=== PATIENT | female | born 1935 | race Caucasian/White ===

== ENCOUNTER 2019-07-02 15:58 | Observation (INO) | payer MEDICARE, SELFPAY ==
[2019-07-02] VITALS (38 sets, daily range): BP systolic 88–153; BP diastolic 47–88; PULSE 59–92; RESP 9–32; TEMP 36.4–37.1; O2SAT 90–98
--- NOTE | 2019-07-02 12:24 | CT_ITS ---
WS: [id number] CT ABDOMEN AND PELVIS NONCONTRAST HISTORY: RLQ PAIN TECHNIQUE: Imaging performed through the abdomen and pelvis. Coronal and sagittal reformats are submi tted. All CT scans at [facility] use at least one of these dose optimization techniques: automated exposure control; mA and/or kV adjustment per patient size (includes targeted exams where d ose is matched to clinical indication); or iterative reconstruction. DLP: 787.04 mGy.cm COMPARISON: 03/08/2016 Lower thorax: Lung bases are clear. Small hiatal hernia. Cardiac chambers are slightly enlarged. Liver: Normal, no mass or intrahepatic dilatation. Gallbladder: Unremarkable. Pancreas: Normal. Spleen: Normal. Adrenal glands: Normal. Right kidney: Normal size with no stones, masses or atrophy. Left kidney: Normal size kidney. Hypoechoic area in the posterior kidney measures 1.2 cm probably rep resents a cyst but cannot characterize without IV contrast. Mild atherosclerosis with no aneurysm. No free fluid, intraperitoneal air or significant lymphadenopathy. GI tract: Acute inflammatory process in the RIGHT lower quadrant. The appendix is dilated and fluid-f illed measuring 10 mm in diameter. Moderate amount of periappendiceal inflammatory changes and edema. There is a soft tissue mass at the base of the appendix extending into the cecum. Mass measures 3.0 x 1.0 cm. There are tiny adjacent lymph nodes. Terminal ileum is normal. Mild constipation throughout the remaining colon. Abdominal wall: Intact. Pelvis: Normal. Atrophic uterus. Osseous structures: Moderate spondylitic changes in the lumbar spine . Schmorl's nodes defects at multiple levels. Severe disc space narrowing and desiccation at L5-S1. Notified Gwen Camarena APN at 07/02/2019 2:[address]/CT abdomen pelvis wo con [id number] IMPRESSION: 1. Findings of acute appendicitis without rupture. Appendicitis may be seconda ry to an obstructing neoplasm at the base of the appendix extending into the ce cum. Increased soft tissue at the base of the appendix and cecum measures 3.0 x 1.0 cm. Neoplastic versus postinflammatory soft tissue thickening. 2. Periappendiceal and cecal soft tissue stranding. Small adjacent lymph nodes . 3. Small hiatal hernia.
[2019-07-02] MEDS: iohexol 300 mg/mL 50 mL Btl PO (12:38)
[2019-07-02 13:14] LABS: Basophils # 0.1 10^3/uL (0.0-0.1); Basophils % 0.4 %; Eosinophils # 0.1 10^3/uL (0.0-0.8); Eosinophils % 0.9 %; Hematocrit 39.4 % (37.0-47.0); Hemoglobin 13.1 g/dL (11.5-15.3); Lymphocytes % 23.2 %; Mean Corpuscular HGB Conc 33.2 g/dL (30.0-36.0); Mean Corpuscular Hemoglobin 30.3 pg (28.0-34.0); Mean Platelet Volume 8.5 fL (7.4-10.4); Monocytes # 1.5 10^3/uL (0.2-0.9); Monocytes % 11.7 %; Neutrophils # 8.1 10^3/uL (1.8-7.7); Neutrophils % 63.2 %; Nucleated Red Blood Cells % 0 %; Platelet Count 305 10^3/cmm (130-400); Red Blood Count 4.33 10^6/uL (4.1-5.3); Red Cell Distribution Width 12.1 % (12.1-15.1); White Blood Count 12.7 10^3/uL (4.0-10.0)
--- NOTE | 2019-07-02 16:26 | P.HP_ITS ---
Providers/Chief Complaint Admitting Physician: Scott Almeida MD Primary Care Provider: Gwen Camarena APN Chief Complaint: Right lower quad pain History of Present Illness Lexus Roqeu is a 83 year old female who says she awoke 2 days ago with some right lower quadrant abdominal pain. This apparently got quite bad yesterday but she did not seek any medical attention. She said she thought the right lower quadrant pain was actually little bit better today but her had en couraged her to be seen in their primary care physician's office. She was sent for a CAT scan and changes consistent with acute appendicitis were identified. The patient says she has not had any fevers or chills over the past 2 days. She says she really has not been nauseated but she has been somewhat anorexic. She said her bowel habits are usually all over the place and so she really has not noticed anything that is definitely out of the ordinary for her. She has had a colonoscopy in the past and thinks that she may have had some polyps removed but she said is been at least 10 years since she has had one. The patient was directly admitted after having her CAT scan done as an outpati ent at the request of her primary care physician's office. The nurses are still working on reconciling all of her historical information in the computer. The patient tells me that she takes Flexeril as needed, levothyroxine 75 mcg a day, lovastatin 20 mg a day, oxycodone 5 mg as needed back pain, Xarelto 10 mg a day (last taken this morning), sotalol 80 mg twice daily (last taken this morning). Review of Systems General: Reports: 10 or more systems reviewed and unremarkable except in HPI and below Const: Denies: fever or chills GI: Reports: abdominal pain Musc: Reports: back pain (Chronic) Medications/Allergies Allergies Allergy/AdvReac Type Severity Reaction Status Date / Time adhesive Allergy Mild rash Verified 07/02/19 16:20 PFSH Acute PFSH: Statuses (acute, chronic, etc) shown below reflect problem list status as previously entered and may not be historically accurate Medical History (Updated 07/02/19 @ 16:38 by Scott Almeida MD) Atrial fibrillation (Acute) Chronic back pain (Acute) Dyslipidemia (Acute) Hiatal hernia (Acute) Small, seen on imaging Hypothyroidism (Acute) Surgical History (Updated 07/02/19 @ 16:40 by Scott Almeida MD) History of atrial septal defect repair (Acute) 1967 History of bilateral cataract extraction (Acute) History of breast biopsy (Acute) Left, benign History of left inguinal hernia repair (Acute) Family History (Updated 07/02/19 @ 16:29 by Scott Almeida MD) Son Cancer Pseudomyxoma peritonei Social History (Updated 07/02/19 @ 16:30 by Scott Almeida MD) Smoking and tobacco status: former smoker Quit status (tobacco): has quit using tobacco Former quit date comment: Quit smoking at age 37, [id number] history Alcohol intake: never Vitals/I&O/Wt Weight last 48 hrs Weight 163 lb Physical Exam Narrative: EXAM NARRATIVE: The patient was encountered in her overflow ICU room. She does not appear to be in any distress. The pupils are equal. No carotid bruits are heard. The lungs are clear. The heart actually sounds fairly regular. The abdomen is moderately obese but is soft. Bowel sounds are hypoactive. The patient has her most exquisite tenderness over McBurney's point in the right lower quadrant but she has a little tenderness medial to this. Rovsing's sign is positive. No obvious masses are palpated. The extremities reveal no edema. Neurologically the patient appears to be grossly intact. Data : 07/02/19 13:02 CT Abd/Pel: My impression: The patient's appendix is dilated and has definite periappendiceal fat stranding changes consistent with acute appendicitis. Radiologist's impression: IMPRESSION: 1. Findings of acute appendicitis without rupture. Appendicitis may be seconda ry to an obstructing neoplasm at the base of the appendix extending into the cecum. Increased soft tissue at the base of the appendix and cecum measures 3.0 x 1.0 cm. Neoplastic versus postinflammatory soft tissue thickening. 2. Periappendiceal and cecal soft tissue stranding. Small adjacent lymph nodes. 3. Small hiatal hernia. A&P Assessment and plan (1) Acute appendicitis: I discussed the CAT scan findings and appendicitis with Lexus. I made her aware that at her age, we could certainly find some other colonic abnormality that would be responsible for making the appendix look strangely, but with common things being common, I think she probably still has typical appendicitis. We discussed both conservative and surgical methods of treatment. We discussed surgical risks of bleeding (she last took her Xarelto this morning), infection, internal organ injury, chances of a larger internal procedure, etc. The patient seems to understand and would like to proceed with an appendectomy today. 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
[2019-07-02] MEDS: lactated ringers 1,000 ML 100 ML (16:34)
--- NOTE | 2019-07-02 16:38 | ANES.PREANE2 ---
Pre-Anesthetic Assessment Pre-Anesthetic Assessment: Height/Weight: Height 1.7 m Weight 73.936 kg Proposed Procedure: Operation Date: 07/02/19 17:30 Proposed Procedures p Laparoscopic Appendectomy(Not Applicable) - Scott Almeida MD Familial anesthetic complications: None Was Beta Jose Manuel taken within 24 hours: Yes Last intake: 0900 cheese and crackers; 1300 drank contrast dye Social: Social History: No alcohol and No tobacco Exam: Pre-Anes Outpt Exam: alert, oriented x 3, clear to auscultation bilaterally and regular rate & rhythm Additional Exam Findings (including area of procedure): irregular Airway: Cervical ROM: WNL MP: 2 Additional comments: chipped, missing, false Pulmonary: Pulmonary: None reported CV/HEM: CV/HEM: Afib Comments: Took eliquis this morning : : None reported Hepatic: Hepatic: None reported GI: GI: None reported Metabolic: Metabolic: Thyroid Musc/skel: Musc/skel: None reported Neuropsych: Neuropsych: None reported Anesthetic Plan: ASA status: 2E Anesthesia: General Risk of > 500 ml blood loss (7ml/kg in children): No PFSH Anesthesia PFSH: Medical History (Updated 07/02/19 @ 16:38 by Scott Almeida MD) Atrial fibrillation (Acute) Chronic back pain (Acute) Dyslipidemia (Acute) Hiatal hernia (Acute) Small, seen on imaging Hypothyroidism (Acute) Surgical History (Updated 07/02/19 @ 16:40 by Scott Almeida MD) History of atrial septal defect repair (Acute) 1967 History of bilateral cataract extraction (Acute) History of breast biopsy (Acute) Left, benign History of left inguinal hernia repair (Acute) Family History (Updated 07/02/19 @ 16:29 by Scott Almeida MD) Son Cancer Pseudomyxoma peritonei Social History (Updated 07/02/19 @ 16:30 by Scott Almeida MD) Smoking and tobacco status: former smoker Quit status (tobacco): has quit using tobacco Former quit date comment: Quit smoking at age 37, 12-idvp-mtom history Alcohol intake: never Data Anesthesia CBC & Chem 7: 07/02/19 13:02 Other Labs: Laboratory Results - last 48 hr 07/02/19 13:02 WBC 12.7 H RBC 4.33 Hgb 13.1 Hct 39.4 MCV 91.0 MCH 30.3 MCHC 33.2 RDW 12.1 Plt Count 305 MPV 8.5 Neut % (Auto) 63.2 Lymph % (Auto) 23.2 [place] % (Auto) 11.7 Eos % (Auto) 0.9 Baso % (Auto) 0.4 Neut # (Auto) 8.1 H Lymph # (Auto) 3.0 [place] # (Auto) 1.5 H Eos # (Auto) 0.1 Baso # (Auto) 0.1 Nucleated RBC % (auto) 0 Nucleated RBCs # 0.0 Cardiac Studies: No Data to Display
[2019-07-02] MEDS: sodium chloride 0.9% 1,000 ML 30 ML IV (17:22)
[2019-07-02] MEDS: metroNIDAZOLE IV 500 MG/100 ML PREMIX 100 MG IV ×2 (17:50→20:52)
--- NOTE | 2019-07-02 18:26 | SUR.OPER ---
1811 skip updated family in waiting area
--- NOTE | 2019-07-02 18:41 | P.OP_ITS ---
Operative Report Date of procedure: July 02, 2019 Pre-op Diagnosis: Acute appendicitis. Post-op diagnosis: same Procedure Done: Laparoscopic appendectomy. Specimens removed/disposition: Appendix. Surgeon: Scott Almeida Anesthesia: General Estimated blood loss (mL): 5 Complications: None. Condition: stable Disposition: PACU Procedure: The patient was brought to the Operating Room and was placed in a supine position on the operating room table. General endotracheal anesthesia was induced. The abdomen was prepped and draped in a sterile fashion. A small vertical incision was carried out in the superior aspect of the umbilicus. Blunt dissection was carried out down to the fascia, which was grasped with a Shamir clamp. A stay suture of 0 Vicryl was placed on either side of the midline and the midline fascia was incised. The underlying peritoneum was opened bluntly and the Esmer port was placed directly into the peritoneal cavity and was held in place with the inflatable balloon. The peritoneal cavity was insufflated with carbon dioxide. The laparoscope was used to inspect the peritoneal cavity. No gross abnormalities were initially noted. Two 5-millimeter ports were placed in the left lower quadrant under direct vision. The patient was tilted in a Trendelenburg position and slightly to the left side. A laparoscopic Gillett was used to elevate the cecum and the appendix was identified. It was contained in a phlegmon just medial to the cecum. The appendix was freed using blunt dissection and was then elevated. The mesoappendix was indurated and edematous, and was divided using cautery to maintain hemostasis at the base of the appendix. Palpation on the cecum with an instrument around the base of the appendix revealed no obvious evidence of a cecal mass. The base of the appendix appeared healthy and was divided using an endoscopic stapler. The appendix was removed from the peritoneal cavity after being placed in a laparoscopic bag. The right lower quadrant and pelvis were irrigated. The staple line on the cecum was identified and appeared to be in good condition. The Esmer port was removed from the umbilical site and the stay sutures of Vicryl were tied to each other at the umbilicus. An additional fazhdy-oa-peyou suture of Vicryl was placed, closing the fascial defect so that it was airtight. A final round of irrigation was carried out in the right lower quadrant and the pelvis. No ongoing problems were seen. The remaining ports were removed from the abdominal wall as the pneumoperitoneum was evacuated. All skin incisions were closed using inverted interrupted sutures of 4-0 Vicryl. Benzoin and Steri-Strips were placed over the incisions and Band- Aids followed. The patient was taken to the Recovery Room in stable condition postoperatively.
[2019-07-02] MEDS: fentaNYL 50 mcg/mL INJ 2mL IVP ×2 (18:47→18:52)
[2019-07-02] MEDS: ondansetron 2 mg/ML SDV 2 mL 4 MG IVP ×2 (18:50→18:57)
[2019-07-02] MEDS: metoclopramide 5 mg/mL SDV 2 mL 10 MG IVP ×2 (19:08→19:21)
[2019-07-02] MEDS: ketorolac 30 mg/mL INJ 15 MG IVP (20:49)
[2019-07-02] MEDS: sodium chlor 0.45% +KCl 20 mEq 20 MEQ/1,000 ML BAG 100 MEQ IV (20:51)
[2019-07-02] MEDS: levalbuterol 0.63 mg/3 mL Neb INHALATION (21:19)
[2019-07-03] VITALS (42 sets, daily range): BP systolic 97–142; BP diastolic 50–91; PULSE 62–83; RESP 7–27; TEMP 36.6–36.8; O2SAT 85–98
--- NOTE | 2019-07-03 02:35 | PC.NURSE ---
patient was received awake alert and oriented from OR to room ICU 3 patient abdomen soft and is tender to touch. bowel sounds positive all four quads. tele shows sinus rhythm and running 60 - 70. lungs CTA bilateral. IVF infusing via 20 guage left ac. patient denies any pain at this time, family at bedside.
[2019-07-03] MEDS: levalbuterol 0.63 mg/3 mL Neb INHALATION (02:49)
[2019-07-03] MEDS: ceFAZolin 1,000 MG in sodium chloride 0.9% (plus) 50 ML 100 MG IV (02:51)
[2019-07-03] MEDS: metroNIDAZOLE IV 500 MG/100 ML PREMIX 100 MG IV (04:18)
[2019-07-03 05:18] LABS: Basophils % 0.1 %; Eosinophils % 0.1 %; Hematocrit 40.3 % (37.0-47.0); Hemoglobin 13.8 g/dL (11.5-15.3); Lymphocytes # 1.2 10^3/uL (0.8-4.8); Lymphocytes % 11.6 %; Mean Corpuscular HGB Conc 34.2 g/dL (30.0-36.0); Mean Corpuscular Hemoglobin 31.7 pg (28.0-34.0); Mean Corpuscular Volume 92.4 fL (81-99); Mean Platelet Volume 8.8 fL (7.4-10.4); Monocytes # 0.4 10^3/uL (0.2-0.9); Monocytes % 3.9 %; Neutrophils # 8.7 10^3/uL (1.8-7.7); Neutrophils % 83.4 %; Nucleated Red Blood Cells % 0 %; Platelet Count 271 10^3/cmm (130-400); Red Blood Count 4.36 10^6/uL (4.1-5.3); Red Cell Distribution Width 11.9 % (12.1-15.1); White Blood Count 10.4 10^3/uL (4.0-10.0)
[2019-07-03 05:37] LABS: Anion Gap 19.6 (5-19); Blood Urea Nitrogen 8 mg/dL (8-23); Calcium 9.5 mg/dL (8.5-10.5); Carbon Dioxide 17 mmol/L (22-29); Chloride 93 mmol/L (98-107); Glucose 153 mg/dL (65-115); Osmolality Calculated 259 mOsm/kg (285-295); Potassium 4.6 mmol/L (3.5-5.1); Sodium 125 mmol/L (136-145)
--- NOTE | 2019-07-03 07:55 | P.DS_ITS ---
Discharge Providers Date of Admission: 07/02/19 15:58 Date of Discharge: Date of Discharge: July 03, 2019 Attending Provider at Admission: Scott Almeida MD Attending Provider at Discharge: Scott Almeida MD Primary Care Provider: Gwen Camarena APN Diagnoses at Discharge Discharge Diagnosis (1) Acute appendicitis: Status: Acute Reason for Visit Reason for Visit: Reason For Visit: Right lower quad pain Hospital Course Discharge Summary: The patient was brought into the hospital after an outpatient CAT scan showed evidence of acute appendicitis. She underwent a laparoscopic appendectomy the same day. By the following morning she was feeling better, her white blood cell count had essentially normalized, she was afebrile, and she was tolerating oral intake. The patient's wounds looked good and she was anxious to go home. She was instructed with respect to wound care, activity limitations, diet, etc. Arrangements will be made for her to follow-up in my office as an outpatient. Physical Exam Narrative: EXAM NARRATIVE: Bowel sounds are present. All wounds/dressings look good. Discharge Data Data Completed and Pending: Completed Studies During Hospitalization Category Date Time Status CT abdomen pelvis wo con [id number] Rout ine Cat Scan 07/02/19 12:24 Completed Pending at discharge Category Date Time Status ES surgery / GI i mages Routine Exams 07/02/19 18:00 Taken Carcinoembryonic Antigen Routine Lab 07/02/19 16:58 Ordered Pathology: Surgic al [PTH] Routine Pth 07/02/19 18:32 Ordered Labs from last 24 hours 07/03/19 07/03/19 07/02/19 04:52 04:52 13:02 WBC 10.4 H 12.7 H RBC 4.36 4.33 Hgb 13.8 13.1 Hct 40.3 39.4 MCV 92.4 91.0 MCH 31.7 30.3 MCHC 34.2 33.2 RDW 11.9 L 12.1 Plt Count 271 305 MPV 8.8 8.5 Neut % (Auto) 83.4 63.2 Lymph % (Auto) 11.6 23.2 [place] % (Auto) 3.9 11.7 Eos % (Auto) 0.1 0.9 Baso % (Auto) 0.1 0.4 Neut # (Auto) 8.7 H 8.1 H Lymph # (Auto) 1.2 3.0 [place] # (Auto) 0.4 1.5 H Eos # (Auto) 0.0 0.1 Baso # (Auto) 0.0 0.1 Nucleated RBC % (a uto) 0 0 Nucleated RBCs # 0.0 0.0 Sodium 125 L Potassium 4.6 Chloride 93 L Carbon Dioxide 17 L Anion Gap 19.6 H BUN 8 Creatinine 0.5 Glucose 153 H Calculated Osmolal ity 259 L Calcium 9.5 Vitals: Last Vital Signs Temp 98.3 F 07/03/19 06:00 Pulse 77 07/03/19 06:00 Resp 23 H 07/03/19 06:00 BP 122/91 07/03/19 06:00 Pulse Ox 91 07/03/19 06:00 Discharge Plan Discharge Patient Disposition: Home, Self-Care Condition: Stable Prescriptions: No Action Unable to Assess RF: 0 Discharge Orders: Discharge Order (Routine); Ordered 07/03/19 Ordered By: Scott Almeida Referrals: Scott Almeida MD [Physician] - 2 weeks Discharge Diet: Advance as tolerated Discharge Activity: Limit activity as instructed Activity Restrictions/Additional Instructions: Resume same home medications. No lifting over 20 pounds, no repetitive bending or twisting, no strenuous pushing / pulling or other heavy activity. Ambulate regularly. May go up and down steps if needed. 1. Discharge to home today. 2. Appointment to see Dr. Almeida in 10-14 days as above. 3. Bandages / bandaids off later today as discussed, leave Steri-Strip(s) on, may shower. 4. Pain medication at home as previously prescribed and instructed. 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
[2019-07-03] MEDS: ketorolac 30 mg/mL INJ 15 MG IVP (08:01)
--- NOTE | 2019-07-03 09:04 | PC.NURSE ---
discharged home with who had her necklace or he had put it in her coat pocket. pt. to make appointment on saturday. noone answered at drDorita office.
--- NOTE | 2019-07-03 09:13 | PC.NURSE ---
pt. had knee hi cali steiner on aftersurgery
--- NOTE | 2019-07-03 09:30 | PC.NURSE ---
abd was soft. bandaides over steri-strips. instructed pt. on showering.
[2019-07-03 10:06] LABS: Carcinoembryonic Antigen 0.8 ng/mL (0.0-4.7)
[2019-07-04] VITALS: BP 114/60; PULSE 66; RESP 18; TEMP 36.8; O2SAT 97
[2019-07-04 00:31] VITALS: BP 114/60; PULSE 66; RESP 18; TEMP 36.8; O2SAT 98
[2019-07-04 00:34] VITALS: BP 118/76; PULSE 62; RESP 18; TEMP 36.8
[2019-07-04 01:00] VITALS: BP 132/57; PULSE 63; RESP 18; TEMP 36.8
[2019-07-04 02:54] VITALS: BP 204/74; PULSE 54; RESP 21; TEMP 37.2; O2SAT 97
== END 2019-07-03 09:00 | disposition home or self-care (01) ==
LOC: ICU 17:04
PROVIDERS: Admitting Provider Surgery; Family Provider Nurse Practitioner; PCP Nurse Practitioner; Visit Provider Surgery
PROC: 0DTJ4ZZ Resection of Appendix, Percutaneous Endoscopic Approach (ICD-10-PCS; CPT 44970; principal; 2019-07-02 17:30)
DX: K35.80 Unspecified acute appendicitis (principal); I48.91 Unspecified atrial fibrillation; Z79.01 Long term (current) use of anticoagulants; E78.5 Hyperlipidemia, unspecified; E03.9 Hypothyroidism, unspecified; Z87.891 Personal history of nicotine dependence
CPT/HCPCS: 44970; 12345; 36415; 74176; 80048; 82378; 85025; 88304; 94640; 96365; 96375; G0378; J0690; J1100; J1885; J2001; J2405; J2704; J2710; J2765; J3010; J3490; J7030; J7614; S0030

== ENCOUNTER 2020-08-31 09:12 | Outpatient (CLI) | payer MEDICARE, SELFPAY ==
[2020-08-31 10:20] VITALS: BMI 26.6
--- NOTE | 2020-08-31 10:20 | ECG_ITS ---
[facility] Test Date: 2020-08-31 Pat Name: Lexus Roque Department: Room: Gender: Female Mailing Jogger: Leticia [place] : 1935 Requested By: Kia Patel Order Number: [id number] Shai MD: Kia Patel M.D. Interpretive Statements NAME OF STUDY: LEXISCAN SESTAMIBI STRESS TEST INDICATION: Chest Pain PROCEDURE: At the baseline, the blood pressure was 169/119 mmHg with a heart rate of 67 bpm. The electrocardiogram showed normal sinus rhythm, normal axis with nonspecific ST depression in inferior and T wave inversion in anterior leads. The Lexiscan was infused over a period of 20 seconds. A total of 0.4 milligrams of Lexiscan was infused. The stress phase was continued for a total of 5 minutes. Heart rate at the end of the stress phase was 76 bpm with a blood pressure of 136/98 mmHg. The EKG at the peak infusion revealed sinus rhythm with no significant ST-T wave changes. The study was terminated due to protocol completion. Sestamibi was injected 20 seconds after the Lexiscan infusion. Blood pressure at the end of the recovery phase was 122/95 mmHg with a heart rate of 74 beats per minute. CONCLUSION: 1. No significant EKG changes with the LexiScan infusion. 2. No LexiScan induced chest pain or cardiac arrhythmia. 3. Normal blood pressure and heart rate response. 4. Functional status could not be assessed due to pharmacological protocol. 5. Sestamibi/sestamibi perfusion scan pending; see separate report. Electronically Signed On 09-05-2020 13:31:33 CDT by Kia Patel M.D. [id number]
--- NOTE | 2020-08-31 10:20 | NMCV_ITS ---
NM juwan perf SPECT r/s* [id number] Lexus Roque Age: 84 Gender: F : 1935 Exam Date: 08/31/2020 10:56 Ordering Phys: Kia Patel MD ([email or web address]) Technologist: HALEY Guzman Exam Location: [facility] Indications: CHEST PAIN STRESS TEST Please see separate stress test report in [facility] for full findings IMAGE PROTOCOL Rest/Stress 1 Lexiscan Day Radiopharmaceutical Dose (mCi) Administration Site Administered by Rest: Tc-99m 10.9 IV HALEY Peter Sestamibi Stress:Tc-99m 32.3 IV HALEY Guzman Sestamimaria g Rest: 31-Aug-2020 60 Discovery 630 Stress: 31-Aug-2020 30 Discovery 630 0.4mg Lexiscan. Images obtained in supine and prone position. SPECT RESULTS Technical Quality: Excellent Raw Data Analysis: Normal Image Corrections: No attenuation or motion correction applied Summed Stress Score: 0 Summed Rest Score: 0 Summed Difference Score: 0 PERFUSION FINDINGS SPECT images demonstrate homogeneous tracer distribution throughout the myocardium. FUNCTIONAL RESULTS (calculated via Gated SPECT) Stress Image LV EF (%): 71 Stress EDV (mL):77 TID: 0.83 Stress ESV (mL):22 FUNCTIONAL FINDINGS: The left ventricle is normal in size. Transient Ischemia Dilatation of 0.83. There is normal left ventricular systolic function. The left ventricular ejection fraction is normal with a value of 71%. There is normal left ventricular wall thickening with no regional wall motion abnormality. Normal end diastolic and end systolic volumes. IMPRESSIONS 1. Myocardial perfusion imaging is normal. 2. Overall left ventricular systolic function is normal without regional wall motion abnormalities. 3. The left ventricular ejection fraction is normal with a value of 71%. 4. Scan indicates low risk for cardiac events. Kia Patel MD (Electronically Signed) Final Date: 31 August 2020 20:34 S
[2020-08-31 11:43] VITALS: BP 151/105; PULSE 83
[2020-08-31] MEDS: regadenoson 0.4 Mg/5 ml Syringe IVP (11:43)
== END 2020-08-31 09:13 | disposition home or self-care (01) ==
LOC: CDL 09:15
PROVIDERS: PCP Nurse Practitioner; Visit Provider Internal Medicine Cardiovascular Disease
DX: R07.9 Chest pain, unspecified (principal)
CPT/HCPCS: 78452; 93017; A9500; J2785

== ENCOUNTER → 2021-08-30 13:53 | Outpatient (BNVA) | payer MEDICARE, SELFPAY | PROVIDERS: PCP Nurse Practitioner Family; Visit Provider Internal Medicine Cardiovascular Disease | DX: I48.0 Paroxysmal atrial fibrillation (principal); Z51.81 Encounter for therapeutic drug level monitoring; R07.9 Chest pain, unspecified; Z79.01 Long term (current) use of anticoagulants; J44.9 Chronic obstructive pulmonary disease, unspecified; Z87.891 Personal history of nicotine dependence | CPT/HCPCS: 99214 ==

== ENCOUNTER → 2021-09-07 08:10 | Outpatient (BNVA) | payer MEDICARE, SELFPAY | PROVIDERS: PCP Nurse Practitioner Family; Visit Provider Internal Medicine Cardiovascular Disease | DX: E78.5 Hyperlipidemia, unspecified (principal); I48.0 Paroxysmal atrial fibrillation; R07.9 Chest pain, unspecified; Z51.81 Encounter for therapeutic drug level monitoring; Z79.899 Other long term (current) drug therapy | CPT/HCPCS: 80053; 84443 ==

== ENCOUNTER → 2021-11-07 11:32 | Outpatient (BNVA) | payer MEDICARE, SELFPAY | PROVIDERS: PCP Nurse Practitioner Family; Visit Provider Nurse Practitioner Family | DX: L98.9 Disorder of the skin and subcutaneous tissue, unspecified (principal); E78.5 Hyperlipidemia, unspecified; R53.83 Other fatigue; I10 Essential (primary) hypertension; E03.9 Hypothyroidism, unspecified; Z79.01 Long term (current) use of anticoagulants | CPT/HCPCS: 80053; 80061; 84443; 85025 ==

== ENCOUNTER → 2021-12-13 00:01 | Outpatient (BNVA) | payer MEDICARE, SELFPAY | PROVIDERS: PCP Nurse Practitioner Family; Visit Provider Nurse Practitioner Family | DX: E87.1 Hypo-osmolality and hyponatremia (principal) | CPT/HCPCS: 80053 ==

== ENCOUNTER → 2022-01-02 14:20 | Outpatient (BNVA) | payer MEDICARE, SELFPAY | PROVIDERS: PCP Nurse Practitioner Family; Visit Provider Orthopaedic Surgery | DX: M47.896 Other spondylosis, lumbar region (principal); M47.892 Other spondylosis, cervical region; M54.50 Low back pain, unspecified; M54.2 Cervicalgia; M47.812 Spondylosis without myelopathy or radiculopathy, cervical region | CPT/HCPCS: 72040; 72110; 99204 ==

== ENCOUNTER 2022-01-09 10:19 | Outpatient (RCR) | payer MEDICARE, SELFPAY | END 2022-01-24 23:59 | disposition home or self-care (01) | LOC: SPT 10:19 | PROVIDERS: PCP Nurse Practitioner Family; Referring Provider Orthopaedic Surgery; Visit Provider Orthopaedic Surgery | DX: M54.2 Cervicalgia (principal); M54.50 Low back pain, unspecified; G89.29 Other chronic pain | CPT/HCPCS: 97110; 97162 ==

== ENCOUNTER → 2022-01-18 08:54 | Outpatient (BNVA) | payer MEDICARE, SELFPAY | PROVIDERS: PCP Nurse Practitioner Family; Visit Provider Nurse Practitioner Family | DX: E87.1 Hypo-osmolality and hyponatremia (principal); B35.4 Tinea corporis | CPT/HCPCS: 80048 ==

== ENCOUNTER 2022-02-21 13:19 | Outpatient (CLI) | payer MEDICARE, SELFPAY ==
--- NOTE | 2022-02-21 13:45 | MR_ITS ---
WS: [id number] MRI CERVICAL SPINE NONCONTRAST TECHNIQUE: Sagittal T1, T2 and STIR imaging. Axial T2, gradient, and fiesta imaging. CLINICAL INFORMATION: neck pain COMPARISON: FINDINGS: Straightening of the normal cervical lordosis. Cord signal is normal. Disc space narrowing with disc osteophyte complexes worse at C5-C6 and C6-C7. C2-C3: Normal. C3-C4: Disc osteophyte complex with endplate ridging. Mild central canal stenosis. Moderate LEFT and mild RIGHT bony foraminal narrowing. Moderate to advanced LEFT facet arthropathy. C4-C5: Disc osteophyte complex with endplate ridging. Mild central canal stenosis. Moderate to advanc ed facet arthropathy. Mild bilateral bony foraminal narrowing. C5-C6: Disc osteophyte complex with endplate ridging. Mild to moderate central canal stenosis with sl ight contact of the cervical cord. Moderate bilateral bony foraminal narrowing LEFT greater than RIGH T. Moderate facet arthropathy with uncovertebral joint hypertrophy. C6-C7: Disc osteophyte complex with mild central canal stenosis. Moderate LEFT and mild RIGHT bony fo raminal narrowing. C7-T1: Slight anterolisthesis. Disc osteophytic ridging. Mild central canal stenosis. Mild bilateral bony foraminal narrowing Visualized brain stem structures: Normal. Prevertebral soft tissues: Normal. MR/MR cervical spin wo con* [id number] IMPRESSION: 1. Straightening of the normal cervical lordosis. 2. Mild central canal stenosis C3-C4 C4-C5 C5-C6 and C6-C7. This is slightly w orse at C5-C6. 3. Multilevel moderate bony foraminal narrowing worse at LEFT C3-C4, bilateral C5-C6 worse in the LEFT, and LEFT C6-C7. 4. Asymmetric moderate to advanced facet arthropathy worse at LEFT C3-C4, bila teral C4-C5, and bilateral C5-C6. 5. Spondylitic changes and central canal stenosis progressed compared to 2013.
--- NOTE | 2022-02-21 14:30 | MR_ITS ---
WS: [id number] MRI LUMBAR SPINE NONCONTRAST TECHNIQUE: Sagittal T1, T2 and STIR imaging. Axial T1 and T2 imaging. CLINICAL INFORMATION: back pain COMPARISON: MRI 2013 FINDINGS: Mild lumbar curve. No acute compression. Disc space narrowing lower thoracic and lumbar spine. Slight anterolisthesis L4 on L5. Tiny central protrusion T11-T12 with mild LEFT foraminal narrowing. T12-L1: Mild disc bulging with mild central canal stenosis. L1-L2: Slight retrolisthesis. Mild annular bulging. Narrowing of the RIGHT greater than LEFT subartic ular recess. Mild facet arthropathy. Mild RIGHT foraminal narrowing. Moderate facet arthropathy. L2-L3: Disc osteophyte complex with endplate ridging. Moderate central canal stenosis. Moderate facet arthropathy. Narrowing of the subarticular recess. L3-L4: Disc osteophyte complex with endplate ridging. Moderate central canal stenosis. Impingement on the traversing L4 nerve roots bilaterally. Moderate facet arthropathy. Foramen are patent. L4-L5: Slight anterolisthesis L4 on L5. Mild disc bulging with impingement on the traversing L5 nerve roots bilaterally. Mild facet arthropathy. Mild LEFT foraminal narrowing. RIGHT foramen is patent. L5-S1: Disc osteophyte complex with endplate ridging. Small central disc protrusion with slight impin gement traversing S1 nerve roots bilaterally. Foramen are patent. Slight contact of the traversing S1 nerve roots bilaterally. Small LEFT renal cyst. Visualized pelvic bony structures: Normal. Paravertebral soft tissues: Normal. MR/MR lumbar spine wo con* [id number] IMPRESSION: 1. Mild lumbar curve. No acute compression. 2. Moderate central canal stenosis L2-L3 and L3-L4 progressed compared to 2013 . Mild central canal stenosis L4-L5. 3. Progressed mild central canal stenosis L1-L2 with impingement RIGHT subarti cular recess and traversing RIGHT L2 nerve root. Mild RIGHT L1-L2 foraminal sendy rowing. 4. Narrowing of the subarticular recess bilateral L2-L3, L3-L4, L4-L5. 5. Shallow central disc protrusion L5-S1 contacts the traversing S1 nerve root s stable since 2013
== END 2022-02-21 13:20 | disposition home or self-care (01) ==
LOC: RAD 13:20
PROVIDERS: PCP Nurse Practitioner Family; Visit Provider Orthopaedic Surgery
DX: M48.061 Spinal stenosis, lumbar region without neurogenic claudication (principal); M51.26 Other intervertebral disc displacement, lumbar region; M48.02 Spinal stenosis, cervical region; M47.812 Spondylosis without myelopathy or radiculopathy, cervical region
CPT/HCPCS: 72141; 72148

== ENCOUNTER → 2022-02-22 13:45 | Outpatient (BNVA) | payer MEDICARE, SELFPAY | PROVIDERS: PCP Nurse Practitioner Family; Visit Provider Orthopaedic Surgery | DX: M47.22 Other spondylosis with radiculopathy, cervical region (principal) | CPT/HCPCS: 72040; 99214 ==

== ENCOUNTER → 2022-03-05 14:09 | Outpatient (BNVA) | payer MEDICARE, SELFPAY | PROVIDERS: PCP Nurse Practitioner Family; Visit Provider Internal Medicine Cardiovascular Disease | DX: I48.0 Paroxysmal atrial fibrillation (principal); Z79.01 Long term (current) use of anticoagulants; Z51.81 Encounter for therapeutic drug level monitoring | CPT/HCPCS: 99214 ==

== ENCOUNTER → 2022-03-14 09:07 | Outpatient (BNVA) | payer MEDICARE, SELFPAY | PROVIDERS: PCP Nurse Practitioner Family; Visit Provider Anesthesiology Pain Medicine | DX: G89.29 Other chronic pain (principal); M47.22 Other spondylosis with radiculopathy, cervical region; M48.02 Spinal stenosis, cervical region; M47.812 Spondylosis without myelopathy or radiculopathy, cervical region; M54.50 Low back pain, unspecified; Z87.891 Personal history of nicotine dependence | CPT/HCPCS: 99205 ==

== ENCOUNTER → 2022-03-28 13:54 | Outpatient (BNVA) | payer MEDICARE, SELFPAY | PROVIDERS: PCP Nurse Practitioner Family; Visit Provider Anesthesiology Pain Medicine | DX: G89.29 Other chronic pain (principal); M47.812 Spondylosis without myelopathy or radiculopathy, cervical region; M54.9 Dorsalgia, unspecified; Z87.891 Personal history of nicotine dependence | CPT/HCPCS: 64490; 64491; 64492; J3490 ==

== ENCOUNTER → 2022-04-11 13:05 | Outpatient (BNVA) | payer MEDICARE, SELFPAY | PROVIDERS: PCP Nurse Practitioner Family; Visit Provider Anesthesiology Pain Medicine | DX: G89.29 Other chronic pain (principal); M47.812 Spondylosis without myelopathy or radiculopathy, cervical region; M54.9 Dorsalgia, unspecified | CPT/HCPCS: 64490; 64491; 64492; J3490 ==

== ENCOUNTER → 2022-04-25 09:32 | Outpatient (BNVA) | payer MEDICARE, SELFPAY | PROVIDERS: PCP Nurse Practitioner Family; Visit Provider Anesthesiology Pain Medicine | DX: G89.29 Other chronic pain (principal); M47.22 Other spondylosis with radiculopathy, cervical region; M48.02 Spinal stenosis, cervical region; M47.812 Spondylosis without myelopathy or radiculopathy, cervical region; M54.50 Low back pain, unspecified | CPT/HCPCS: 99214 ==

== ENCOUNTER → 2022-05-10 13:36 | Outpatient (BNVA) | payer MEDICARE, SELFPAY | PROVIDERS: PCP Nurse Practitioner Family; Visit Provider Anesthesiology Pain Medicine | DX: G89.29 Other chronic pain (principal); M47.812 Spondylosis without myelopathy or radiculopathy, cervical region | CPT/HCPCS: 64633; 64634; J1030 ==

== ENCOUNTER → 2022-05-30 14:02 | Outpatient (BNVA) | payer MEDICARE, SELFPAY | PROVIDERS: PCP Nurse Practitioner Family; Visit Provider Nurse Practitioner Family | DX: E03.9 Hypothyroidism, unspecified (principal); E87.1 Hypo-osmolality and hyponatremia; Z79.01 Long term (current) use of anticoagulants | CPT/HCPCS: 80053; 80061; 84443; 85025 ==

== ENCOUNTER → 2022-08-28 09:05 | Outpatient (BNVA) | payer MEDICARE, SELFPAY | PROVIDERS: PCP Nurse Practitioner Family; Visit Provider Nurse Practitioner Family | DX: E03.9 Hypothyroidism, unspecified (principal); E78.5 Hyperlipidemia, unspecified; R73.09 Other abnormal glucose | CPT/HCPCS: 80053; 80061; 83036; 84443; 85025 ==

== ENCOUNTER → 2022-10-10 14:45 | Outpatient (BNVA) | payer MEDICARE, SELFPAY | PROVIDERS: PCP Nurse Practitioner Family; Visit Provider Internal Medicine Cardiovascular Disease | DX: I48.91 Unspecified atrial fibrillation (principal) | CPT/HCPCS: 93005; 99214 ==

== ENCOUNTER → 2022-10-17 13:33 | Outpatient (BNVA) | payer MEDICARE, SELFPAY | PROVIDERS: PCP Nurse Practitioner Family; Visit Provider Internal Medicine Cardiovascular Disease | DX: I48.91 Unspecified atrial fibrillation (principal) | CPT/HCPCS: 93005 ==

== ENCOUNTER 2022-11-02 09:31 | Outpatient (CLI) | payer MEDICARE, SELFPAY ==
--- NOTE | 2022-11-02 | ECG_ITS ---
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 Interpretive Statements NAME OF STUDY: LEXISCAN SESTAMIBI STRESS TEST INDICATION: Chest Pain; ; Shortness of Breath PROCEDURE: At the baseline, the blood pressure was 134/76 mm with a heart rate of 62 beats per min. The electrocardiogram showed sinus bradycardia with PACs, normal axis. Nonspecific ST-T wave changes in anterior leads. The Lexiscan was infused over a period of 20 seconds. A total of 0.4 milligrams of Lexiscan was infused. The stress phase was continued for a total of 5 minutes. Heart rate at the end of the stress phase was 81 bpm with a blood pressure 157/100 mmHg. The EKG at the peak infusion revealed no significant ST-T wave changes. Sestamibi was injected 20 seconds after the Lexiscan infusion. Blood pressure at the end of the recovery phase was 161/91 mmHg with a heart rate of 74 beats per minute. CONCLUSION: 1. No significant EKG changes with the LexiScan infusion. 2. No LexiScan induced chest pain or cardiac arrhythmia. 3. Normal blood pressure and heart rate response. 4. Sestamibi/sestamibi perfusion scan pending; see separate report. Electronically Signed On 11-05-2022 14:21:53 CDT by Kia Patel M.D. [id number]
[2022-11-02 10:04] VITALS: BMI 25.9
--- NOTE | 2022-11-02 10:06 | NMCV_ITS ---
NM juwan perf SPECT r/s* [id number] Lexus Roque Age: 87 Gender: F : 1935 Exam Date: 11/02/2022 10:46 Ordering Phys: Kia Patel MD ([email or web address]) Technologist: HALEY Guzman Exam Location: [facility] Indications: CHEST PAIN, SHORTNESS OF BREATH STRESS TEST Please see separate stress test report in [facility] for full findings IMAGE PROTOCOL Rest/Stress 1 Lexiscan Day Radiopharmaceutical Dose (mCi) Administration Site Administered by Rest: Tc-99m 10.6 IV Aquiles Kasper, LIAISON OFFICER Sestamibi Stress:Tc-99m 33.0 IV Aquiles Kasper, LIAISON OFFICER Sestamibi Rest: 60 Discovery 630 Stress: 30 Discovery 630 0.4mg Lexiscan. Images obtained in supine and prone position. SPECT RESULTS Technical Quality: Excellent Raw Data Analysis: Normal Image Corrections: No attenuation or motion correction applied Summed Stress Score: 0 Summed Rest Score: 0 Summed Difference Score: 0 PERFUSION FINDINGS SPECT images demonstrate homogeneous tracer distribution throughout the myocardium. FUNCTIONAL RESULTS (calculated via Gated SPECT) Stress Image LV EF (%): 83 Stress EDV (mL):78 TID: 1.22 Stress ESV (mL):13 FUNCTIONAL FINDINGS: The left ventricle is normal in size. Transient Ischemia Dilatation of 1.2. The left ventricular ejection fraction is normal with a value of 83%. There is hyperdynamic left ventricular wall thickening. IMPRESSIONS 1. Myocardial perfusion imaging is normal. 2. Overall left ventricular systolic function is hyperdynamic without regional wall motion abnormalities, LVEF=83%. 3. Mildly increased transient ischemic dilation index of 1.2. This may represent hypertensive response or subendocardial ischemia. Clinical correlation is advised. 4. EKG portion of the study will be reported separately. Kia Patel MD (Electronically Signed) Final Date: 05 November 2022 15:59 S
[2022-11-02] MEDS: regadenoson 0.4 Mg/5 ml Syringe IVP (11:36)
[2022-11-02] MEDS: ondansetron 2 mg/ML SDV 2 mL 4 MG IVP (11:57)
[2022-11-02 11:58] VITALS: BP 161/91; PULSE 74
== END 2022-11-02 09:32 | disposition home or self-care (01) ==
LOC: CDL 09:32
PROVIDERS: PCP Nurse Practitioner Family; Visit Provider Internal Medicine Cardiovascular Disease
DX: R07.9 Chest pain, unspecified (principal); R06.02 Shortness of breath
CPT/HCPCS: 36415; 78452; 93017; 96374; 96375; A9500; J2405; J2785

== ENCOUNTER → 2022-11-14 11:04 | Outpatient (BNVA) | payer MEDICARE, SELFPAY | PROVIDERS: PCP Nurse Practitioner Family; Visit Provider Specialist | DX: M17.12 Unilateral primary osteoarthritis, left knee (principal) | CPT/HCPCS: 73560; 73565; 99204 ==

== ENCOUNTER → 2023-03-26 11:17 | Outpatient (BNVA) | payer MEDICARE, SELFPAY | PROVIDERS: PCP Nurse Practitioner Family; Visit Provider Nurse Practitioner Family | DX: E78.5 Hyperlipidemia, unspecified (principal); R53.83 Other fatigue; I10 Essential (primary) hypertension | CPT/HCPCS: 80053; 80061; 84443; 85025 ==

== ENCOUNTER → 2023-05-08 10:15 | Outpatient (BNVA) | payer MEDICARE, SELFPAY | PROVIDERS: PCP Nurse Practitioner Family; Visit Provider Internal Medicine Cardiovascular Disease | DX: I48.0 Paroxysmal atrial fibrillation (principal); Z51.81 Encounter for therapeutic drug level monitoring; Z79.899 Other long term (current) drug therapy; Z79.01 Long term (current) use of anticoagulants; E78.5 Hyperlipidemia, unspecified; Z72.0 Tobacco use; J44.9 Chronic obstructive pulmonary disease, unspecified | CPT/HCPCS: 99214 ==

== ENCOUNTER → 2023-06-07 10:14 | Outpatient (BNVA) | payer MEDICARE, SELFPAY | PROVIDERS: PCP Nurse Practitioner Family; Visit Provider Nurse Practitioner Family | DX: R04.0 Epistaxis (principal); Z79.01 Long term (current) use of anticoagulants | CPT/HCPCS: 85025; 85610 ==

== ENCOUNTER 2023-06-22 00:33 | Emergency (ER) | payer MEDICARE, SELFPAY ==
[2023-06-22 00:36] VITALS: BP 169/88; PULSE 75; RESP 18; TEMP 36.6; O2SAT 95; BMI 25.8
--- NOTE | 2023-06-22 01:10 | CTR_ITS ---
PROCEDURE INFORMATION: Exam: CT Lumbar Spine Without Contrast Exam date and time: 06/22/2023 1:31 AM Age: 87 years old Clinical indication: Injury or trauma; Blunt trauma (contusions or hematomas); Patient HX: Fall at home on bathroom floor. C/O focal pain to low back and left hip. Anticoagulated. ; Additional info: Fall back pain TECHNIQUE: Imaging protocol: Computed tomography of the lumbar spine without contrast. Radiation optimization: All CT scans at this facility use at least one of these dose optimization techniques: automated exposure control; mA and/or kV adjustment per patient size (includes targeted exams where dose is matched to clinical indication); or iterative reconstruction. COMPARISON: MR lumbar spine wo con* [id number] 02/21/2022 3:08 PM RADIATION DOSE METRICS: Total DLP (mGy-cm): 725.9 FINDINGS: Bones/joints: Severe degenerative disc disease at L1-L2, L2-L3, L3-L4, L4-L5 and L5-S1. Soft tissues: Unremarkable. Other findings: There is a 1.8 cm simple appearing cyst in the posterior cortex of the left kidney of no clinical significance. CT/CT lumbar spine wo con* [id number] IMPRESSION: 1. No acute fracture. 2. Severe degenerative disc disease at L1-L2, L2-L3, L3-L4, L4-L5 and L5-S1.
--- NOTE | 2023-06-22 01:10 | CTR_ITS ---
PROCEDURE INFORMATION: Exam: CT Head Without Contrast Exam date and time: 06/22/2023 1:37 AM Age: 87 years old Clinical indication: Injury or trauma; Blunt trauma (contusions or hematomas); Patient HX: Fall at home on bathroom floor. C/O focal pain to low back and left hip. Anticoagulated. ; Additional info: Fall anticoag TECHNIQUE: Imaging protocol: Computed tomography of the head without contrast. Radiation optimization: All CT scans at this facility use at least one of these dose optimization techniques: automated exposure control; mA and/or kV adjustment per patient size (includes targeted exams where dose is matched to clinical indication); or iterative reconstruction. COMPARISON: MR cervical spin wo con* [id number] 02/21/2022 2:30 PM RADIATION DOSE METRICS: Total DLP (mGy-cm): 1028.35 FINDINGS: Brain: Subcortical and periventricular white matter changes consistent with small-vessel ischemic disease in the appropriate clinical setting. Small-vessel ischemic disease. Cerebral ventricles: No ventriculomegaly. Paranasal sinuses: Visualized sinuses are unremarkable. No fluid levels. Mastoid air cells: Visualized mastoid air cells are well aerated. Bones/joints: Unremarkable. No acute fracture. Soft tissues: Unremarkable. CT/CT head wo con* [id number] IMPRESSION: 1. No acute intracranial abnormality. 2. Small-vessel ischemic disease.
--- NOTE | 2023-06-22 01:10 | CTR_ITS ---
PROCEDURE INFORMATION: Exam: CT Pelvis Without Contrast; Skeletal Exam date and time: 06/22/2023 1:34 AM Age: 87 years old Clinical indication: Injury or trauma; Blunt trauma (contusions or hematomas); Prior surgery; Surgery date: 6+ months; Surgery type: Left inguinal hernia repair; Patient HX: Fall at home on bathroom floor. C/O focal pain to low back and left hip. Anticoagulated. ; Additional info: Fall left hip pain TECHNIQUE: Imaging protocol: Computed tomography of the pelvis without contrast. Exam focused on the skeleton. Radiation optimization: All CT scans at this facility use at least one of these dose optimization techniques: automated exposure control; mA and/or kV adjustment per patient size (includes targeted exams where dose is matched to clinical indication); or iterative reconstruction. COMPARISON: CT abdomen pelvis wo con [id number] 07/02/2019 2:11 PM RADIATION DOSE METRICS: Total DLP (mGy-cm): 395.95 FINDINGS: Appendix: The appendix is not visualized. Bones/joints: Unremarkable. No acute fracture. No dislocation. Soft tissues: Unremarkable. CT/CT bony pelvis [id number] IMPRESSION: No acute fracture identified.
[2023-06-22] MEDS: ondansetron 4 MG Tablet PO (01:25)
[2023-06-22] MEDS: morphine 4 mg/mL SDV 1 mL IM (01:26)
[2023-06-22 03:33] VITALS: RESP 18; O2SAT 96
[2023-06-22] MEDS: oxyCODONE-APAP 5-325 mg Tablet 2 TAB PO (03:33)
[2023-06-22 03:39] VITALS: BP 146/85; PULSE 71; RESP 18; O2SAT 96
--- NOTE | 2023-06-22 03:39 | PC.NURSE ---
Pt sent home with Oxycodone per Dr. Gloria orders.
--- NOTE | 2023-06-22 03:46 | ED_ITS ---
HPI - Fall General: Chief Complaint: Fall Stated Complaint: FALL Time Seen by Provider: 06/22/23 00:45 History of Present Illness: 87-year-old female who fell at home. Caitlyn pearl believes she hit the cabinet on the way down. She struck her left posterior hip and pelvis. She complains of low back pain, pelvic pain and left hip pain. No radicular pain. She did not hit her head. She does take anticoagulation medication. Associated symptoms-after fall: Denies abdominal pain, chest pain or headache(s) Review of Systems Const: Denies: fever(s) Card: Denies: chest pain Resp: Denies: dyspnea GI: Denies: abdominal pain or vomiting Musc: Reports: back pain; Denies: extremity pain Neuro: Denies: headache(s) PFSH ED PFSH: Medical History DDD (degenerative disc disease) Anticoagulation adequate with anticoagulant therapy Tobacco abuse COPD (chronic obstructive pulmonary disease) Hiatal hernia Small, seen on imaging Chronic back pain Dyslipidemia Atrial fibrillation Hypothyroidism Surgical History History of breast biopsy Left, benign History of bilateral cataract extraction History of left inguinal hernia repair History of atrial septal defect repair 1967 Family History Son Cancer Pseudomyxoma peritonei Social History Smoking and tobacco/nicotine status: former use of tobacco/nicotine Second hand smoke exposure: No Alcohol intake: never Substance/Drug Use: never Physical Exam HENMT: COMMON NORMALS: normocephalic and atraumatic HEAD & SCALP: normocephalic and atraumatic FACE & SINUS: normal facial exam and face symmetric Eye: COMMON NORMALS: Equal, round and reactive pupils present and EOMs intact bilaterally PUPIL: Yes Equal, round and reactive pupils present Neck/C-Spine: COMMON NORMALS: full ROM GENERAL: Yes trachea midline and No tender Chest: CHEST: Yes Symmetrical chest wall rise Resp: COMMON NORMALS: normal respiratory effort Cardio: COMMON NORMALS: regular rate; negative for regular rhythm RATE: regular rate RHYTHM: abnormal rhythm GI: COMMON NORMALS: non-tender Back/Pelvis: OTHER: Some tenderness over the posterior pelvis/SI joints. There is L5-S1 tenderness. There is some posterior lateral left hip tenderness. No deformity. Neuro: KRISTEN COMA SCALE: document GCS findings [place] coma scale eye opening: Spontaneous Kristen coma scale verbal response: Orientated [place] coma scale motor response: Obey commands Kristen coma scale total score: 15 Psych: COMMON NORMALS: mental status grossly normal Course Vital Signs: Vital signs: Vital Signs Temperature 97.8 F 06/22/23 00:36 Pulse Rate 75 06/22/23 00:36 Respiratory Rate 18 06/22/23 03:33 Blood Pressure 169/88 06/22/23 00:36 Pulse Oximetry 96 06/22/23 03:33 Oxygen Delivery Me thod Room Air 06/22/23 00:36 MDM - Fall Medical Decision Making Lumbar and pelvic CTs are negative for fracture. She does have severe degenerative disc disease of the lumbar spine, likely contributing to her symptoms. She has a walker at home. Short course of pain medication. Close outpatient follow-up. Lab Data Radiology Impressions Head CT 06/22/23 01:10 IMPRESSION: 1. No acute intracranial abnormality. 2. Small-vessel ischemic disease. Lumbar Spine CT 06/22/23 01:10 IMPRESSION: 1. No acute fracture. 2. Severe degenerative disc disease at L1-L2, L2-L3, L3-L4, L4-L5 and L5-S1. Pelvis CT 06/22/23 01:10 IMPRESSION: No acute fracture identified. All radiology interpretation(s) finalized by discharge Discharge Plan Discharge Patient Disposition: Home Clinical Impression: Spondylosis of lumbar spine Condition: Stable Prescriptions: New hydrocodone-acetaminophen 5-325 mg tablet 1 tab PO Q8H PRN (Reason: pain) Qty: 7 0RF No Action ICaps AREDS2 250 mg-200 unit -12.5 mg-1 mg capsule PO diltiazem HCl [Cardizem] 30 mg tablet 30 mg PO TID PRN (Reason: tachycardia) Qty: 90 2RF Rx Instructions: For HR>100 bpm loratadine 10 mg tablet 10 mg PO DAILY PRN vitamin B complex [B Complex-Vitamin B12] Tablet 1 tab PO DAILY magnesium oxide 200 mg magnesium tablet 200 mg PO DAILY biotin 10,000 mcg capsule PO dimenhydrinate [Dramamine] 50 mg tablet 50 mg PO DAILY PRN (Reason: dizziness or vertigo) bupivacaine (PF) 0.25 % (2.5 mg/mL) solution 1 ml Infiltration ONCE Qty: 1 0RF ketoconazole 2 % cream 1 applic topical DAILY Qty: 15 1RF acetaminophen [Tylenol Extra Strength] 500 mg tablet 500 mg PO Q6H PRN bupivacaine (PF) 0.25 % (2.5 mg/mL) solution 3 ml intra-articular ONCE Qty: 1 0RF methylprednisolone acetate [Depo-Medrol] 40 mg/mL suspension 40 mg Infiltration ONCE Qty: 1 0RF sotalol 120 mg tablet 120 mg PO BID Qty: 180 3RF Eliquis 5 mg tablet 5 mg PO BID Qty: 60 6RF levothyroxine 75 mcg tablet See Rx Instructions .ROUTE .COMPLEX Qty: 90 0RF Dose Instruction: TAKE 1 TABLET BY MOUTH DAILY Rx Instructions: TAKE 1 TABLET BY MOUTH DAILY lovastatin 20 mg tablet See Rx Instructions .ROUTE .COMPLEX Qty: 90 0RF Dose Instruction: TAKE 1 TABLET BY MOUTH EVERY DAY Rx Instructions: TAKE 1 TABLET BY MOUTH EVERY DAY Discharge Orders: Discharge ED (Routine); Ordered 06/22/23 Ordered By: Ministerio Gloria Referrals: Quin Lopez FNP [Primary Care Provider] - 1-3 days Patient Instructions: Acute Low Back Pain (ED), Opioid Safety, Pain Management Activity Restrictions/Additional Instructions: Medication as directed. Ice may help as well. See your doctor next week. Return for problems. Coding Level of Care Code ED Voucher Examiner for Kayli Scott
== END 2023-06-22 03:50 | disposition home or self-care (01) ==
PROVIDERS: Emergency Provider Emergency Medicine; PCP Nurse Practitioner Family
DX: M47.816 Spondylosis without myelopathy or radiculopathy, lumbar region (principal); Z79.01 Long term (current) use of anticoagulants; M51.36 Other intervertebral disc degeneration, lumbar region; J44.9 Chronic obstructive pulmonary disease, unspecified; E78.5 Hyperlipidemia, unspecified; Z87.891 Personal history of nicotine dependence
CPT/HCPCS: 70450; 72131; 72192; 96372; 99284; J2270; Q0162

== ENCOUNTER 2023-06-25 06:20 | Emergency (ER) | payer MEDICARE, SELFPAY ==
[2023-06-25 06:21] VITALS: BP 127/84; PULSE 68; RESP 18; TEMP 36.7; O2SAT 96; BMI 25.8
[2023-06-25 06:26] VITALS: BP 124/72; RESP 16; O2SAT 95
[2023-06-25] MEDS: orphenadrine 30 mg/mL Inj 2 mL IM (08:13)
--- NOTE | 2023-06-25 08:23 | PC.PHAR ---
pts verified pts medications-pts states they have left over sotalol 80mg and use half of a tab 40mg prn ext shows 80mg bid filled 05/03/23 90d/s-pts states the pt takes sotalol 120mg bid also-pts states the pt takes eliquis 2.5mg bid states is suppose to be taking 5mg bid but states the pt was bruising to much so they cut it back to 2.5mg bid ext shows last filled 5mg bid 05/10/23 30d/s-
--- NOTE | 2023-06-25 08:42 | W.ED.FALL ---
HPI - Fall General: Chief Complaint: Fall Stated Complaint: low back pain Time Seen by Provider: 06/25/23 06:22 History of Present Illness: 87-year-old female presents to the emergency department via EMS secondary to complaints of pain. She was seen here in the emergency department [address] Gloria and was prescribed Hydrocodone and after receiving x-rays and advising the patient that she had no fractures was discharged home with recommended follow-up as needed with her primary care provider. It appears that the patient was also seen yesterday by a primary care provider and provided additional hydrocodone medications. The patient's family members state that she is able to ambulate through the living room but does complain of pain. She was able to scoot from the EMS cot to the exam bed. The patient is laying in the bed flexing her hips by bending her knees towards her chest she is also extending her lower extremities with her knees flexed and what appears to be a lithotomy position and she is doing this without difficulty. The patient has also been observed rolling both knees to the left and the right causing lateral rotation of her hip flexors without difficulty. Patient states that she is continued to have 10 out of 10 back pain and is unable to sit on the toilet although her stated he helped her to the toilet. She has denied numbness or tingling to the extremities. Her states that she has in the past required injections from the pain management physician for her chronic back pain. The patient does not appear to be in active pain unless a nurse or provider is in the room. And then the statement of complaints of pain are out of proportion to the exam. The patient initially states that her pain is to her right buttocks area and on continued discussion she now states that her pain is to her lower back. On continued exam and discussion she now states that her pain is on the left hip area. Review of Systems General: Reports: 10 or more systems reviewed and unremarkable except in HPI and below Musc: Reports: back pain PFSH ED PFSH: Medical History DDD (degenerative disc disease) Anticoagulation adequate with anticoagulant therapy Tobacco abuse COPD (chronic obstructive pulmonary disease) Hiatal hernia Small, seen on imaging Chronic back pain Dyslipidemia Atrial fibrillation Hypothyroidism Surgical History History of breast biopsy Left, benign History of bilateral cataract extraction History of left inguinal hernia repair History of atrial septal defect repair 1967 Family History Son Cancer Pseudomyxoma peritonei Social History Smoking and tobacco/nicotine status: former use of tobacco/nicotine Second hand smoke exposure: No Alcohol intake: never Substance/Drug Use: never Physical Exam Narrative: EXAM NARRATIVE: Constitutional: the patient appears well nourished and with normal development. Vital signs reviewed as documented. GCS 15, no acute distress. The patient states she is hard of hearing and states that she does not have her hearing aids in. The patient's and patient's daughter do appear to be very confrontational and are demanding medication to make the patient's pain completely go away. HENMT: Normocephalic, atraumatic. External ears normal appearance without drainage. Nose without drainage, normal appearance. Mucus membranes moist. Neck is supple, No jugular venous distension, trachea is midline, no appreciable carotid bruits. No lymphadenopathy. No meningeal signs. Flexion, extension and lateral rotation is without pain. Eyes: Pupils are equal, round, reactive to light and accommodation. No scleral icterus. Extra-ocular movement are intact. Thorax is symmetrical and with equal rise and fall with respirations. Resp: Lungs are clear to auscultation. No wheezes, rales, crackles or ronchi at present. Cardio: Regular rate and rhythm. Positive S1, S2. No appreciable murmurs, rubs or gallops. GI: Abdominal exam reveals normal bowel sounds to all quadrants. No organomegaly. No obvious palpable masses noted. No hepatomegally appreciated. Soft, non-tender to palpation. Extremity: Extremities are non-edematous and both femoral and pedal pulses are 2+ and equal bilaterally. Moves all extremities well, sensation in all extremities. She has absolutely no difficulties with flexion, extension, hip flexion, hip extension or lateral rotation. It does not appear to cause any increase in pain as long as there is distraction during the exam. Neuro: Alert and oriented x4, person, place, time and situation. Cranial nerves II through XII are grossly intact, there is no focal neurological deficits that I can appreciate at present. Motor strength in the upper and lower extremities are equal and bilateral 5/5. Psych: Aggressive, agitated,, normal thought process, appropriate judgment. Skin: No lesions, rashes. No gross abnormalities noted. Back: Symmetrical, no obvious deformity, No CVA tenderness Course ED course: I did attempt to advise them several times that the excessive amount of medication could cause airway compromise and that I did provide her muscle relaxer. The patient's continued to be very aggressive and stating at 1 point that he was going to punch me in the jaw unless I gave her something to take all of her pain away. He started to raise his voice with me and yell and then became very aggressive standing up and pointing his finger and I stated to him at that point that I was not going to continue to allow him to threaten me and that if he would calm down I would be glad to continue the discussion otherwise we would have to end of discussion and I would discharge the patient. There were intermittent periods where the patient and the patient's did remain slightly calm and I asked them if they would like me to continue with the discussion regarding the CT scan and the radiographic findings. The patient's stated that he did not believe with the radiologist read and he knows that there is a problem. He states that he wants an MRI on the patient's back because he is sure that there is something wrong. He then starts to tell me about a hand injury on his right hand that he had evaluated at [facility] in [facility] and that the radiologist missed a fracture on his hand then causing him to have significant difficulty. I advised him that I understood this information and would be glad to take him and show him the CT scan results as well as the radiology read and I advised that I would take time to show him the actual CT scan if his agreed to that and I would provide him education regarding normal findings and her chronic findings. The patient's stated that he was not going to do that that he just wanted her to have pain medications. I advised him that I would not give additional pain medications and that at this point I would again explain the pathophysiology and healing of a musculoskeletal strain. He then states let me show you and reaches over and helps pull his from a lying position to a sitting position on the bed she is actively sitting on the bed with her legs hanging over the bed and then he states to me do you see the pain she is not even able to sit I did point out to the patient and the patient's daughter and to the that the patient was in fact sitting at the end of the bed without difficulty. I again advised the patient and her daughter and her that I was not comfortable with giving them any additional pain medication and that the pain is from a muscle strain and muscle bruise and that it would take time for it to heal. I attempted to provide additional stretching techniques and attempted to discuss with the patient and her family additional supportive care and at this time they said they wanted to be discharged and demanded that I leave the room. The registered nurse was present during this interaction. The patient's then stated they would contact a director of student financial services and kathe me unless they got additional pain medications. I advised them that I was not going to give additional pain medications and at that time the patient stated that she and her family would ensure that everyone in the area with no about me and my lack of caring. The patient moved from the ER stretcher/bed to the wheelchair without any difficulty she was able to stand pivot turn and sit in the wheelchair and did not cry out in pain or appear to have any difficulty at all. Vital Signs: Vital signs: Vital Signs Temperature 98.0 F 06/25/23 06:21 Pulse Rate 68 06/25/23 06:21 Respiratory Rate 16 06/25/23 06:26 Blood Pressure 124/72 06/25/23 06:26 Pulse Oximetry 95 06/25/23 06:26 Oxygen Delivery Me thod Room Air 06/25/23 06:26 MDM - Fall Medical Decision Making Physical exam completed and documented I did review the patient's previous medical record and provide her with intramuscular muscle relaxer medication. Medical Records I reviewed the patient's medical records. No radiology studies performed this visit Discharge Plan Discharge Patient Disposition: Home Clinical Impression: Muscle pain, myofascial, Acute lumbosacral myofascial strain Condition: Stable Prescriptions: No Action diltiazem HCl [Cardizem] 30 mg tablet 30 mg PO TID PRN (Reason: tachycardia) Qty: 90 2RF Rx Instructions: For HR>100 bpm loratadine 10 mg tablet 10 mg PO DAILY PRN (Reason: Allergy Symptoms) dimenhydrinate [Dramamine] 50 mg tablet 50 mg PO DAILY PRN (Reason: dizziness or vertigo) hydrocodone-acetaminophen 5-325 mg tablet 1 tab PO Q8H PRN (Reason: pain) 5 Days Qty: 15 0RF sotalol 120 mg tablet 120 mg PO BID Qty: 180 3RF Anti-Itch Ointment See Rx Instructions .ROUTE .COMPLEX Rx Instructions: topically as directed as needed on back Vitamin B-2 100 mg Tablet 100 mg PO DAILY PRN (Reason: mouth sores) L-Lysine 1,000 mg Tablet 1,000 mg PO DAILY PRN (Reason: mouth sores) Stool Softener 100 mg Capsule 100 mg PO DAILY Flonase 50 mcg/actuation [place],Suspension 2 spray INTRANASAL DAILY PRN (Reason: Allergy Symptoms) Biofreeze 0.2-3.5 % Gel 1 applic TOPICAL DAILY PRN (Reason: Pain) Rx Instructions: apply to back levothyroxine 75 mcg tablet 75 mcg PO QAM lovastatin 20 mg tablet 20 mg PO BEDTIME Eliquis 5 mg tablet 2.5 mg PO BID Discharge Orders: Discharge ED (Routine); Ordered 06/25/23 Ordered By: Mynor Sierra Referrals: Quin Lopez FNP [Primary Care Provider] - Discharge Diet: Advance as tolerated Discharge Activity: Resume usual activity Patient Instructions: Opioid Safety, Pain Management Activity Restrictions/Additional Instructions: Activity Restrictions/Additional Instructions: Thank you for choosing [facility] for your healthcare needs today. Please realize that you were seen in the Emergency Department and that we are providing you with an emergency medical screening exam and this may not be a complete and all inclusive of all the testing and or medical work-up that you may need to determine your ailment or severity of your illness. It is very important that you follow-up as instructed with your Primary care provider or Specialist for additional evaluation and to discuss your medical treatment plan. You may return to the Emergency Department should you have concerns or if your condition changes or worsens in any way. Coding Level of Care Code ED [employer] Supervisor for Kayli Scott
== END 2023-06-25 09:35 | disposition home or self-care (01) ==
PROVIDERS: Emergency Provider Internal Medicine; PCP Nurse Practitioner Family
DX: S39.012A Strain of muscle, fascia and tendon of lower back, initial encounter (principal); Z79.01 Long term (current) use of anticoagulants; Z87.891 Personal history of nicotine dependence; J44.9 Chronic obstructive pulmonary disease, unspecified; E78.5 Hyperlipidemia, unspecified; X58.XXXA Exposure to other specified factors, initial encounter
CPT/HCPCS: 96372; 99284; J2360

== ENCOUNTER 2023-07-03 16:04 | Outpatient (CLI) | payer MEDICARE, SELFPAY ==
--- NOTE | 2023-07-03 16:45 | MR_ITS ---
WS: [id number] MRI LUMBAR SPINE NONCONTRAST HISTORY: M48.46XA - Fatigue fracture of vertebra, lumbar region. COMPARISON: 02/21/2022 TECHNIQUE: Sagittal and axial multisequence imaging is submitted. Mild straightening curvature lumbar spine. Disc spaces are narrowed throughout the thoracic and lumba r spines. Mild anterior wedging of T3. 2 mm anterolisthesis of L4. Acute L1 compression fracture. Slight retrolisthesis by 2 mm of L1. There is diffuse marrow edema thr oughout the L1 vertebral body with no marrow edema in the pedicle. Loss of height by approximately 10 %. No retropulsion. Conus terminates normally at L1-2 disc level. T12-L1: Mild diffuse disc bulging with mild central stenosis. Subarticular recess encroachment. Mild bilateral foraminal stenosis. L1-L2: Diffuse annular disc bulging encroaching upon the ventral thecal sac. Mild central with bilate ral subarticular recess encroachment. Focal asymmetric disc in the LEFT foramen. There is also modera te bilateral foraminal stenosis. Mild progression of stenosis since the prior study. L2-L3: Diffuse annular disc bulging encroaching upon the ventral thecal sac. Moderate central and shane ateral subarticular recess and minimal foraminal narrowing. Moderate facet arthritis. L3-L4: Disc osteophyte complex centrally. Moderate central stenosis with impingement upon the randall ing L4 nerve roots. No significant foraminal stenosis. Moderate facet arthritis. L4-L5: Mild diffuse annular disc bulging, osteophytic ridging and facet arthritis. There is disc bulg ing with encroachment and impingement upon the traversing L5 nerve roots. Mild facet arthritis. Mild LEFT foraminal stenosis. No change. L5-S1: Mild osteophytic ridging. Central disc protrusion with minimal encroachment upon the RIGHT S1 nerve root. Mild facet arthritis. Mild foraminal narrowing. LEFT renal cyst 1.5 cm. IMPRESSION: 1. Acute, 10% L1 compression fracture. No retropulsion of the vertebral body or involvement of the p osterior elements. 2. Multilevel degenerative disc disease and facet disease with stenoses. Minimal progression since . 3. T12-L1: Mild bilateral foraminal stenosis. 4. L1-2: Mild central with bilateral subarticular recess and moderate foraminal stenosis. Stenosis s lightly progressed at this level. 5. L2-3: Moderate central, bilateral subarticular recess and minimal foraminal stenosis. 6. L3-4: Moderate central stenosis with impingement upon the traversing L4 nerve roots. 7. L4-5: Mild disc encroachment upon the traversing L5 nerve roots with mild LEFT foraminal stenosis . 8. L5-S1: Central disc protrusion with minimal encroachment upon the RIGHT S1 nerve root.
== END 2023-07-03 16:05 | disposition home or self-care (01) ==
LOC: RAD 16:05
PROVIDERS: PCP Nurse Practitioner Family; Visit Provider Nurse Practitioner Family
DX: M48.46XA Fatigue fracture of vertebra, lumbar region, initial encounter for fracture (principal); M48.05 Spinal stenosis, thoracolumbar region; M51.27 Other intervertebral disc displacement, lumbosacral region
CPT/HCPCS: 72148

== ENCOUNTER 2023-07-25 09:03 | Outpatient (CLI) | payer MEDICARE, SELFPAY ==
--- NOTE | 2023-07-25 09:30 | USCV_ITS ---
Lexus Roque Age: 87 Gender: F : 1935 Exam Date: 07/25/2023 09:30 Ordering Phys: Quin Lopez Technologist: DIONE Exam Location: [facility] [place] Indication: TIA Risk Factors: Previous Vascular Surgery: Right Brachial BP: / Left Brachial BP: / Right Left Velocity (cm/s) Spectral Plaque Velocity (cm/s) Spectral Plaque Syst/Diast Broadening Syst/Diast Broadening 83.90/ 10.20 Prox CCA 64.50 / 11.10 47.50/ 8.70 Mid CCA 65.30 / 14.70 42.50/ 8.20 Distal CCA 56.70 / 12.20 35.90/ 6.20 Prox ICA 44.70 / 12.00 40.10/ 11.70 Mid ICA 65.40 / 21.10 51.10/ 15.10 Distal ICA 73.60 / 21.60 37.30 ECA 50.10 1.20 ICA/CCA 1.30 Antegrade Vertebral Antegrade 78.20/ 12.30 cm/s 42.20/ 12.90 cm/s Tri Subclavian Tri 78.20 93.70 FINDINGS Comparison:. 10/05/13. No significant elevation of systolic or diastolic velocities. Waveforms are normal. Mixture of calcified and noncalcified plaque in the bifurcations. Antegrade vertebral arteries. CONCLUSIONS No interval change in stenosis since prior exam. Bilateral ICA stenosis less than 50%. Dr. Lilia Schilling DO (Electronically Signed) Final Date: 25 July 2023 13:47 S
== END 2023-07-25 09:04 | disposition home or self-care (01) ==
LOC: RAD 09:03
PROVIDERS: PCP Nurse Practitioner Family; Visit Provider Nurse Practitioner Family
DX: I65.23 Occlusion and stenosis of bilateral carotid arteries (principal)
CPT/HCPCS: 93880; 99215

== ENCOUNTER 2023-07-31 11:19 | Outpatient (CLI) | payer MEDICARE, SELFPAY ==
--- NOTE | 2023-07-31 12:15 | USCV_ITS ---
Lexus Roque Age: 87 Gender: F : 1935 Exam Date: 07/31/2023 11:41 Ordering Phys: Steffany Neri MD ([email or web address]) Technologist: MIGUEL [place] [facility] [place]ication: REPAIRED ASD AFIB BP: / HR: 0 Rhythm: Sinus Technical Quality: Good MEASUREMENTS (Male / Female) Normal Values 2D ECHO LV Systolic Diameter PLAX 2.9 cm IVS Diastolic Thickness 0.8 cm 0.6 - 1.0 / 0.6 - 0.9 cm IVS Systolic Thickness 1.1 cm LVPW Diastolic Thickness 0.9 cm 0.6 - 1.0 / 0.6 - 0.9 cm LVPW Systolic Thickness 1.1 cm LA Diameter 4.6 cm Aorta at Sinotubular Diameter 3.6 cm M-MODE LA Ao Ratio MM 1.4 MV E Point Septal Separation 0.5 cm DOPPLER AV Peak Velocity 268.0 cm/s MV Peak Velocity 61.5 cm/s MV Area PHT 3.4 cm squared Mitral E to A Ratio 0.8 TV Peak Velocity 130.6 cm/s TR Peak Velocity 221.0 cm/s TR Peak Gradient 19.5 mmHg TR Mean Velocity 174.0 cm/s TR Mean Gradient 12.7 mmHg TR Velocity Time Integral 76.6 cm TV Peak E Velocity 59.0 cm/s PV Peak Velocity 61.0 cm/s FINDINGS Left Ventricle Normal left ventricular size and systolic function, EF 55%.no regional wall motion abnormalities. Grade I/IV diastolic dysfunction (abnormal relaxation filling pattern), normal to mildly elevated filling pressures. Right Ventricle Normal right ventricular size and systolic function. Right Atrium Mildly increased right atrial size. Left Atrium Moderately increased left atrial size. Left to right shunt was noted at the level of the interatrial septum Mitral Valve Mild mitral valve regurgitation. Aortic Valve Mild aortic valve regurgitation. Thickened aortic valve. Tricuspid Valve Moderate tricuspid valve regurgitation. Pulmonic Valve Kveq-qa-sqmobcyk pulmonary valve regurgitation. Pericardium No pericardial effusion. Aorta Normal aortic annulus size. IVC The inferior vena cava appears normal. CONCLUSIONS Normal left ventricular size and systolic function, EF 55%. No regional wall motion abnormalities. Type I diastolic dysfunction. Moderately dilated left atrium with a mildly dilated right atrium. Possible atrial septal defect with a jgly-sy-[id number] shunt The Qp/Qs is not calculated Mild mitral valve regurgitation. Thickened aortic valve with a mild aortic valve regurgitation. Moderate tricuspid valve regurgitation. Pceu-xa-mqpstflq pulmonary valve regurgitation. Estimated pulmonary artery peak systolic pressure [address] Steffany Neri MD [facility] (Electronically Signed) Final Date: 08 August 2023 21:25 S
== END 2023-07-31 11:20 | disposition home or self-care (01) ==
LOC: RAD 11:20
PROVIDERS: PCP Nurse Practitioner Family; Visit Provider Internal Medicine Cardiovascular Disease
DX: I08.3 Combined rheumatic disorders of mitral, aortic and tricuspid valves (principal)
CPT/HCPCS: 93306

== ENCOUNTER 2023-08-07 12:12 | Outpatient (CLI) | payer MEDICARE, SELFPAY ==
--- NOTE | 2023-08-07 13:00 | USCV_ITS ---
Lexus Roque Age: 87 Gender: F : 1935 Exam Date: 08/07/2023 13:08 Ordering Phys: Quin LopezP Technologist: JADE Exam Location: [facility] [place] Indication: PVD, BILAT LEG PAIN Risk Factors: Previous Vascular Surgery: RIGHT LEFT BP: 149.0 / 77.00 BP: 131.0/ 71.00 0 0 Waveform Velocity (cm/s) Velocity (cm/s) Waveform Triphasic 58.0 Iliac Prox 91.0 Triphasic Triphasic 47.0 Iliac Mid 68.0 Triphasic Triphasic 58.0 Iliac Distal 53.0 Triphasic Triphasic 58.0 PHP LAMP DEVELOPER 91.0 Triphasic Triphasic 47.0 SFA Prox 68.0 Biphasic Biphasic 58.0 SFA Mid 53.0 Biphasic Biphasic SFA Dist Biphasic 61.0 44.0 Biphasic 32.0 POP 43.0 Biphasic Biphasic 32.0 BOARD TURNER 49.0 Biphasic Biphasic 30.0 DPA 41.0 Biphasic 1.1 ANOOP 1.1 FINDINGS Intimal thickening in the iliac, femoral and popliteal arteries bilaterally. Near normal arterial Doppler waveforms and Doppler flow velocities bilaterally Resting ANOOP 1.1 bilaterally CONCLUSIONS 1. Normal resting ABIs and Doppler features bilaterally suggesting no significant arterial obstruction 2. Intimal thickening in the iliac, femoral and popliteal arteries bilaterally Dr Steffany Neri MD [facility] (Electronically Signed) Final Date: 08 August 2023 21:39 S
== END 2023-08-07 12:13 | disposition home or self-care (01) ==
LOC: RAD 12:13
PROVIDERS: PCP Nurse Practitioner Family; Visit Provider Nurse Practitioner Family
DX: I73.9 Peripheral vascular disease, unspecified (principal); I77.89 Other specified disorders of arteries and arterioles
CPT/HCPCS: 93925

== ENCOUNTER → 2023-08-21 10:50 | Outpatient (BNVA) | payer MEDICARE, SELFPAY | PROVIDERS: PCP Nurse Practitioner Family; Visit Provider Internal Medicine Cardiovascular Disease | DX: I48.0 Paroxysmal atrial fibrillation (principal); E78.5 Hyperlipidemia, unspecified; Z87.74 Personal history of (corrected) congenital malformations of heart and circulatory system; I65.23 Occlusion and stenosis of bilateral carotid arteries; Z87.891 Personal history of nicotine dependence; Z79.01 Long term (current) use of anticoagulants | CPT/HCPCS: 99214 ==

== ENCOUNTER → 2023-12-27 09:58 | Outpatient (BNVA) | payer MEDICARE, SELFPAY | PROVIDERS: PCP Nurse Practitioner Family; Visit Provider Nurse Practitioner Family | DX: I10 Essential (primary) hypertension (principal); R53.83 Other fatigue | CPT/HCPCS: 80053; 80061; 84443; 85025 ==

== ENCOUNTER 2024-01-09 10:37 | Outpatient (CLI) | payer MEDICARE, SELFPAY ==
--- NOTE | 2024-01-09 10:57 | US_ITS ---
WS: [id number] BILATERAL 3D TOMOSYNTHESIS DIGITAL DIAGNOSTIC MAMMOGRAPHY WITH CAD CLINICAL INFORMATION: N63.20 - Unspecified lump in the left breast, unspecified... HISTORY: On antibiotics for nipple rash x3 weeks COMPARISON: 2014 TECHNIQUE: Bilateral CC, MLO, and ML views. FINDINGS: The breasts are composed of heterogeneous fibroglandular density, which can limit the detection of sm all underlying mass lesions. Diffuse skin thickening LEFT breast with diffuse increased trabecular th ickening subareolar and extending into the outer quadrant with a suspicious appearance. This is new c ompared to 2014. In addition, there are numerous clusters of pleomorphic heterogeneous calcifications with a highly rodriguez spicious appearance. Additional vascular calcifications. Ultrasound LEFT breast is pending. RIGHT breast is unremarkable ULTRASOUND BREAST LEFT TECHNIQUE: Ultrasound left breast focused area of concern. CLINICAL INFORMATION: N63.20 - Unspecified lump in the left breast, unspecified... FINDINGS: Ultrasound LEFT breast subareolar and upper outer quadrant. Areas of dense parenchymal tissue and tra becular thickening. A few areas of prominent intraductal density that may be a target for biopsy alth ough no well-defined focal mass lesions. Diffuse skin thickening with subcutaneous edema. US/US breast LT limited* [id number] IMPRESSION: BI-RADS: 5-Highly Suggestive of Malignancy FOLLOW UP: See Report Differential considerations include inflammatory breast carcinoma, adenocarcino ma of the nipple (Paget's disease), or possibly infiltrating ductal carcinoma w ith dermal lymphatic invasion. Consider breast surgery referral for surgical biopsy of the nipple areolar comp estela Pleomorphic calcifications subareolar LEFT breast with a highly suspicious appe arance could be biopsied with stereotactic guided biopsy. In addition, ultrasound targeted biopsy in the subareolar area could also be pe rformed. Also recommend breast MRI for initial staging.
--- NOTE | 2024-01-09 11:30 | MM_ITS ---
WS: [id number] BILATERAL 3D TOMOSYNTHESIS DIGITAL DIAGNOSTIC MAMMOGRAPHY WITH CAD CLINICAL INFORMATION: N63.20 - Unspecified lump in the left breast, unspecified... HISTORY: On antibiotics for nipple rash x3 weeks COMPARISON: 2014 TECHNIQUE: Bilateral CC, MLO, and ML views. FINDINGS: The breasts are composed of heterogeneous fibroglandular density, which can limit the detection of sm all underlying mass lesions. Diffuse skin thickening LEFT breast with diffuse increased trabecular th ickening subareolar and extending into the outer quadrant with a suspicious appearance. This is new c ompared to 2014. In addition, there are numerous clusters of pleomorphic heterogeneous calcifications with a highly rodriguez spicious appearance. Additional vascular calcifications. Ultrasound LEFT breast is pending. RIGHT breast is unremarkable ULTRASOUND BREAST LEFT TECHNIQUE: Ultrasound left breast focused area of concern. CLINICAL INFORMATION: N63.20 - Unspecified lump in the left breast, unspecified... FINDINGS: Ultrasound LEFT breast subareolar and upper outer quadrant. Areas of dense parenchymal tissue and tra becular thickening. A few areas of prominent intraductal density that may be a target for biopsy alth ough no well-defined focal mass lesions. Diffuse skin thickening with subcutaneous edema. MM/[place] [id number] IMPRESSION: BI-RADS: 5-Highly Suggestive of Malignancy FOLLOW UP: See Report Differential considerations include inflammatory breast carcinoma, adenocarcino ma of the nipple (Paget's disease), or possibly infiltrating ductal carcinoma w ith dermal lymphatic invasion. Consider breast surgery referral for surgical biopsy of the nipple areolar comp estela Pleomorphic calcifications subareolar LEFT breast with a highly suspicious appe arance could be biopsied with stereotactic guided biopsy. In addition, ultrasound targeted biopsy in the subareolar area could also be pe rformed. Also recommend breast MRI for initial staging.
== END 2024-01-09 10:38 | disposition home or self-care (01) ==
LOC: RAD 10:37
PROVIDERS: PCP Nurse Practitioner Family; Visit Provider Nurse Practitioner Family
DX: N63.20 Unspecified lump in the left breast, unspecified quadrant (principal); R92.333 Mammographic heterogeneous density, bilateral breasts; R92.1 Mammographic calcification found on diagnostic imaging of breast; N64.59 Other signs and symptoms in breast; N60.32 Fibrosclerosis of left breast
CPT/HCPCS: 76642; 77062; G0279

== ENCOUNTER → 2024-01-22 14:45 | Outpatient (BNVA) | payer MEDICARE, SELFPAY | PROVIDERS: PCP Nurse Practitioner Family; Visit Provider Internal Medicine Cardiovascular Disease | DX: I48.0 Paroxysmal atrial fibrillation (principal); E78.5 Hyperlipidemia, unspecified; I65.23 Occlusion and stenosis of bilateral carotid arteries; Z87.74 Personal history of (corrected) congenital malformations of heart and circulatory system; N63.10 Unspecified lump in the right breast, unspecified quadrant; Z87.891 Personal history of nicotine dependence | CPT/HCPCS: 99214 ==

== ENCOUNTER → 2024-05-07 10:53 | Outpatient (BNVA) | payer MEDICARE, SELFPAY | PROVIDERS: PCP Nurse Practitioner Family; Visit Provider Nurse Practitioner Family | DX: Z79.01 Long term (current) use of anticoagulants (principal); E87.1 Hypo-osmolality and hyponatremia | CPT/HCPCS: 80053; 85025 ==

== ENCOUNTER → 2024-06-02 08:26 | Outpatient (BNVA) | payer MEDICARE, SELFPAY | PROVIDERS: PCP Nurse Practitioner Family; Visit Provider Nurse Practitioner Family | DX: E87.1 Hypo-osmolality and hyponatremia (principal) | CPT/HCPCS: 80053 ==

== ENCOUNTER 2024-08-12 12:55 | Oncology outpatient (recurring) (ONCR) | payer MEDICARE, SELFPAY ==
--- NOTE | 2024-08-06 09:29 | N.ONRAD NP_ITS ---
Radiation Oncology New Patient Visit Patient: Lexus Roque MR#: [id number] : 1935> Age: 88> Sex: Female> Dictated by: Dr. Angelina Olguin Date of Service: 08/05/2024 Referring Physician(s) : Diagnosis: Inflammatory breast cancer Radiotherapy to date: Summary > No prior radiation therapy. Chief Complaint / History of Present Illness: Patient is an 88-year-old lady who in December 2023 had abnormalities which led to a mammogram. She had some skin thickening and subsequently had a biopsy. She was found to have multiple nodules in the left breast on PET scan along with skin thickening. The biopsy showed it was invasive breast cancer grade 2. She was noted to have multifocal lymphovascular invasion and multiple biopsies were positive. 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 On July 02 after she had completed her neoadjuvant chemotherapy she underwent a mastectomy. She was found at that time to have 5 of 16 nodes positive. She is seen today in consultation to discuss the role of radiation postoperatively. The primary lesion was ER/WI positive H ER 2 negative. Current Medications: apixaban (Eliquis) TAKE ONE TABLET BY MOUTH TWICE DAILY camphor-menthol 0.2-3.5 % 1 applic topical DAILY PRN dexamethasone mg PO dimenhydrinate (Dramamine) 50 mg PO DAILY PRN docusate sodium (Stool Softener) 100 mg PO DAILY fluticasone propionate 50 mcg/actuation 2 sprays intranasal DAILY PRN hydrocodone-acetaminophen 5-325 mg 1 tab PO Q8H PRN 5 days levothyroxine TAKE 1 TABLET BY MOUTH EVERY DAY loratadine 10 mg PO DAILY PRN lovastatin TAKE 1 TABLET BY MOUTH EVERY DAY lysine 1,000 mg PO DAILY PRN ondansetron mg PO prochlorperazine maleate mg PO riboflavin (vitamin B2) (Vitamin B-2) 100 mg PO DAILY PRN sotalol 120 mg PO BID [walker with wheels As directed] Allergies: adhesivie. Medical History: DDD (degenerative disc disease) Anticoagulation adequate with anticoagulant therapy Tobacco abuse COPD (chronic obstructive pulmonary disease) Hiatal hernia Small, seen on imaging Chronic back pain Dyslipidemia Atrial fibrillation Hypothyroidism Surgical History: History of breast biopsy Left, benign History of bilateral cataract extraction History of left inguinal hernia repair History of atrial septal defect repair 1966 Family History: Son Cancer Pseudomyxoma peritonei Social History: Smoking and tobacco/nicotine status: former use of tobacco/nicotine (stopped in 1967) Second hand smoke exposure: No Alcohol intake: never Substance/Drug Use: never Dietary Habits: Caffeine: Yes Current Complaints / Review of Systems: . Vital Signs: Performed on 08/05/2024 2:51 PM BMI - 24.534 kg/m2 (high), Height - 66 in, Weight - 152 lbs, Temperature - 96.7 f, Pulse - 79 /min, Respiration - 18 /min, O2 Sat - 97 %, Pain - 0, Fatigue - 0 and BP - 150/ 88 mm(hg)(high/). Physical Exam: General: Patient is accompanied today by her . She is in no apparent distress. HEENT: Normocephalic atraumatic. Pupils equal, sclera clear, extraocular muscles intact Pulmonary: Respiratory rate is regular nonlabored Extremities: Without lymphedema noted in the upper extremities. She does have some tightness through the left shoulder since the surgery. Cardiovascular: Regular rate and rhythm Abdomen: Mildly protuberant android pattern Chest wall: The incision is nicely healed. There is no erythema or drainage. No nodules or masses could be appreciated. Neurological: Alert and orient x 3. Gait and speech within normal limits. Patient is moderately hard of hearing Psych: Affect is appropriate for current situation Performance Status: 90 Pathology: Infiltrating ductal carcinoma the breast ER/WI positive H ER 2 negative grade 2 Impression: Stage T4b N2 M0 infiltrating ductal carcinoma the breast Plan: I reviewed with the patient at this time all of the things that she has been through. We discussed her pathology and the findings at the time of her surgery. We reviewed how the greatest risk for any disease to recur is actually in the area of the chest wall where the bulk of her disease was located. We talked about the standard of care which would include radiation to the chest wall and supraclav. We reviewed the simulation process. We discussed the risks and side effects both acute and long-term. She understands the role of the radiation and the need to proceed. We talked about this care of her skin during the course of her treatment. At this point she is contemplating what other treatments she would like to do subsequently. She will be discussing the remainder of her treatment with medical oncology in regards to Arimidex . At this point she has agreed to proceed with the radiation. She will return coordinating with her and other appointments and begin her treatment shortly thereafter. Signed by: 08/06/2024 9:27:24 AM <<Signature on File>> Time spent with patient:60 CPT Code: * CPT Code: *
--- NOTE | 2024-08-18 13:14 | N.ONRD TS_ITS ---
Radiation Oncology Treatment Summary Patient: Jude>Jaz MR#: [id number] : 1935> Age: 88> Sex: Female Dictated by: Dr. Angelina Olguin Date of Service: 08/18/2024 Referring Physician(s) : Diagnosis: C50.912 - Malignant neoplasm of unspecified site of left female breast, Diagnosed 08/06/2024 (Active) C77.3 - Secondary and unspecified malignant neoplasm of axilla and upper limb lymph nodes, Diagnosed 08/06/2024 (Active) Radiotherapy to Date: Clinical Summary: Patient???s called and she has decided not to pursue treatment at this time. Dr. Angelina Olguin>08/18/2024 1:13:26 PM <<Signature on File>>
== END 2024-08-24 23:59 | disposition home or self-care (01) ==
PROVIDERS: PCP Nurse Practitioner Family; Visit Provider Radiology Radiation Oncology
DX: Z51.0 Encounter for antineoplastic radiation therapy (principal); C50.812 Malignant neoplasm of overlapping sites of left female breast; Z17.0 Estrogen receptor positive status [ER+]; C77.3 Secondary and unspecified malignant neoplasm of axilla and upper limb lymph nodes; Z92.21 Personal history of antineoplastic chemotherapy; Z90.12 Acquired absence of left breast and nipple
CPT/HCPCS: 77280; 77295; 77300; 77334; 99205

== ENCOUNTER → 2024-08-31 10:21 | Outpatient (BNVA) | payer MEDICARE, SELFPAY | PROVIDERS: PCP Nurse Practitioner Family; Visit Provider Nurse Practitioner Family | DX: R53.83 Other fatigue (principal); I10 Essential (primary) hypertension | CPT/HCPCS: 80053; 80061; 84443; 85025 ==

== ENCOUNTER → 2024-09-16 14:01 | Outpatient (BNVA) | payer MEDICARE, SELFPAY | PROVIDERS: PCP Nurse Practitioner Family; Visit Provider Internal Medicine Cardiovascular Disease | DX: I48.0 Paroxysmal atrial fibrillation (principal); E78.5 Hyperlipidemia, unspecified; I65.23 Occlusion and stenosis of bilateral carotid arteries; Z87.74 Personal history of (corrected) congenital malformations of heart and circulatory system; N63.10 Unspecified lump in the right breast, unspecified quadrant; Z87.891 Personal history of nicotine dependence | CPT/HCPCS: 99214 ==

== ENCOUNTER → 2024-10-02 08:51 | Outpatient (BNVA) | payer MEDICARE, SELFPAY | PROVIDERS: PCP Nurse Practitioner Family; Visit Provider Nurse Practitioner Family | DX: E87.1 Hypo-osmolality and hyponatremia (principal) | CPT/HCPCS: 80053 ==

== ENCOUNTER → 2024-10-16 12:05 | Outpatient (BNVA) | payer MEDICARE, SELFPAY | PROVIDERS: PCP Nurse Practitioner Family; Visit Provider Nurse Practitioner Family | DX: L02.91 Cutaneous abscess, unspecified (principal) | CPT/HCPCS: 87070; 87075; 87205 ==

== ENCOUNTER 2024-11-19 13:14 | Oncology outpatient (recurring) (ONCR) | payer MEDICARE, SELFPAY ==
--- NOTE | 2024-10-27 15:36 | ONCRAD EPV_ITS ---
Radiation Oncology Established Patient Visit Patient: Lexus Roque [id number] : 1935 Age: 88 Sex: Female Dictated by: Darrius Herrera Date of Service: 10/27/2024 Referring Physician(s) : Diagnosis: C50.912 - Malignant neoplasm of unspecified site of left female breast, Diagnosed 08/06/2024 (Active) C77.3 - Secondary and unspecified malignant neoplasm of axilla and upper limb lymph nodes, Diagnosed 08/06/2024 (Active) Radiotherapy to Date: None Current History: This is a pleasant 88-year-old female with known inflammatory breast cancer on the left side. She was found to have 5 out of 16 lymph nodes positive at surgery. She had some family problems and did not want undergo radiation at that time. She comes back today willing to undergo adjuvant radiation to the lymph nodes and chest wall. Prior History: Patient in December 2023 had abnormalities which led to a mammogram. She had some skin thickening and subsequently had a biopsy. She was found to have multiple nodules in the left breast on PET scan along with skin thickening. The biopsy showed it was invasive breast cancer grade 2. She was noted to have multifocal lymphovascular invasion and multiple biopsies were positive. 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 On July 02 after she had completed her neoadjuvant chemotherapy she underwent a mastectomy. She was found at that time to have 5 of 16 nodes positive. She is seen today in consultation to discuss the role of radiation postoperatively. The primary lesion was ER/OR positive H ER 2 negative. Current Medications: apixaban (Eliquis) TAKE ONE TABLET BY MOUTH TWICE DAILY camphor-menthol 0.2-3.5 % 1 applic topical DAILY PRN dimenhydrinate (Dramamine) 50 mg PO DAILY PRN docusate sodium (Stool Softener) 100 mg PO DAILY fluticasone propionate 50 mcg/actuation 2 sprays intranasal DAILY PRN levothyroxine TAKE ONE Allergies: adhesivie. Vital Signs: Performed on 10/27/2024 2:40 PM BMI - 24.404 kg/m2 (high), Height - 66 in, Weight - 151.2 lbs, Temperature - 96.7 f, Pulse - 73 /min, Respiration - 17 /min, O2 Sat - 96 %, Pain - 0, Fatigue - 0 and BP - 147/ 79 mm(hg)(high/). Physical Exam: General: Alert and oriented x 3. No acute distress. HEENT: Normocephalic, atraumatic. Extraocular Movements Intact: Pupils Equal, Round, Reactive to Light and Accommodation: Sclerae anicteric. Oral cavity is clear without lesions, masses or ulcers. NECK: Supple without supraclavicular or jugular lymphadenopathy. LUNGS: Clear to auscultation bilaterally without rales, rhonchi or wheeze. HEART: Regular rate and rhythm, normal S1 and S2 without murmur, gallop or rub. BREAST: Right breast without masses but is pendulous. Left chest wall without any nodularity in the scar line. Minimal swelling noted there is swelling in the left upper extremity MUSCULOSKELETAL: No tenderness or percussion pain over the axial skeleton, scapulae or pelvis. ABDOMEN: Soft, nontender, nondistended without masses or organomegaly. Bowell sounds are present. EXTREMITIES: No peripheral edema is identified. Limited motor and sensory examination are grossly intact and symmetric bilaterally. NEUROLOGIC: Cranial nerves II ???XII are grossly intact. Normal sensation, strength 5/5 in all extremities, normal gait, no ataxia. Performance Status: KPS 80 Lab: None pending. Pathology: Primary, c50.912 - malignant neoplasm of unspecified site of left female breast, Diagnosed 08/06/2024 (active) and Primary, c77.3 - secondary and unspecified malignant neoplasm of axilla and upper limb lymph nodes, Diagnosed 08/06/2024 (active) . 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 After she completed her neoadjuvant chemotherapy she underwent a mastectomy. She was found at that time to have 5 of 16 nodes positive. PLAN: Options again were discussed with the patient and . She is willing to undergo adjuvant XRT at this time to include the lymph nodes and left chest wall. She had tattoos placed so we will resume her and replan her based on those tattoos. Plan for field technique 5000 cGy in 25 fractions utilizing bolus on the chest wall daily. Consent signed after all questions answered. Signed by: 10/27/2024 3:34:55 PM <<Signature on File>> Time spent with patient/: 30 minutes CPT Code: CPT Code:
--- NOTE | 2024-11-03 12:17 | ONCRAD TMN_ITS ---
Radiation Oncology Weekly Treatment Management Patient: Jude Sebastian MR#: [id number] : 1935> Attending Physician: Dr ePrez Date of Service: 11/03/2024 Referring Physician(s) : Diagnosis: C50.912 - Malignant neoplasm of unspecified site of left female breast, Diagnosed 08/06/2024 (Active) C77.3 - Secondary and unspecified malignant neoplasm of axilla and upper limb lymph nodes, Diagnosed 08/06/2024 (Active) Radiotherapy to date: Course: L chest wall, Treatment Site: LSclav, Ref. ID: [email or web address]_Axilla, Energy: 15X, Dose/Fx (cGy): 200, #Fx: 2 / 25, Dose Correction (cGy): 0, Total Dose Delivered (cGy): 400, Start Date: 11/02/2024, End Date: 11/03/2024, Elapsed Days: 1 Course: L chest wall, Treatment Site: Chestwall L ReCT, Ref. ID: [email or web address], Energy: 15X/6X, Dose/Fx (cGy): 200, #Fx: 2 / 25, Dose Correction (cGy): 0, Total Dose Delivered (cGy): 400, Start Date: 11/02/2024, Elapsed Days: 1 Reason for visit: The patient is being seen today as part of their regularly scheduled weekly on treatment visits to assess for acute toxicities from radiotherapy. Review of Systems: She had dizziness going into examining room. He has had these chronically now. 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 Using topical aloe vera. Chronic LBP limits her activity as well. Vital Signs: Performed on 11/03/2024 11:57 AM Height - 66 1 mg x 14, Weight - 149 lbs, Temperature - 96.7 f, Pulse - 103 /min (high), Respiration - 18 /min, O2 Sat - 97 %, Pain - 0, Fatigue - 0 and BP - 137/ 85 mm(hg). Physical Exam: omitted Imaging: Radiation therapy imaging related to accurate target localization (i.e. KV, MV and CBCT) was reviewed. Appropriate changes, if any, were made to ensure treatment accuracy. Plan: Good tolerance of treatment. Discussed adding Aquaphor to Aloe. Continue as planned. Signed by: Dr. Frederick Perez 11/03/2024 12:15:39 PM
--- NOTE | 2024-11-17 14:44 | ONCRAD TMN_ITS ---
Radiation Oncology Weekly Treatment Management Patient: Lexus Roque MR#: [id number] : 1935 Attending Physician: Darrius Herrera Date of Service: 11/17/2024 Referring Physician(s) : Diagnosis: C50.912 - Malignant neoplasm of unspecified site of left female breast, Diagnosed 08/06/2024 (Active) C77.3 - Secondary and unspecified malignant neoplasm of axilla and upper limb lymph nodes, Diagnosed 08/06/2024 (Active) Radiotherapy to date: Course: L chest wall, Treatment Site: LSclav, Ref. ID: PTV_Axilla, Energy: 15X,Dose/Fx (cGy): 200, #Fx: / 25, Dose Correction (cGy): 0, Total Dose Delivered (cGy): 2,400, Start Date: 11/02/2024, Elapsed Days: 15 Course: L chest wall, Treatment Site: Chestwall L ReCT, Ref. ID: [email or web address], Energy: 15X/6X, Dose/Fx (cGy): 200, #Fx: 25, Dose Correction (cGy): 0, Total Dose Delivered (cGy): 2,400, Start Date: 11/02/2024, Elapsed Days: 15 Reason for visit: The patient is being seen today as part of their regularly scheduled weekly on treatment visits to assess for acute toxicities from radiotherapy. Review of Systems: No voiced complaints. Using creams daily. Vital Signs: Performed on 11/17/2024 2:27 PM BMI - 24.179 kg/m2 (high), Height - 66 in, Weight - 149.8 lbs, Temperature - 96.1 f, Pulse - 64 /min, Respiration - 16 /min, O2 Sat - 97 %, Pain - 0, Fatigue - 0 and BP - 146/ 74 mm(hg)(high/). Physical Exam: AAOx3. Skin intact. No erythema. Imaging: Radiation therapy imaging related to accurate target localization (i.e. KV, MV and CBCT) was reviewed. Appropriate changes, if any, were made to ensure treatment accuracy. Plan: Cont XRT Signed by: Darrius Herrera 11/17/2024 2:42:18 PM
== END 2024-11-19 23:59 | disposition home or self-care (01) ==
PROVIDERS: PCP Nurse Practitioner Family; Visit Provider Radiology Radiation Oncology
DX: Z51.0 Encounter for antineoplastic radiation therapy (principal); C50.812 Malignant neoplasm of overlapping sites of left female breast; Z17.0 Estrogen receptor positive status [ER+]; C77.3 Secondary and unspecified malignant neoplasm of axilla and upper limb lymph nodes
CPT/HCPCS: 77295; 77300; 77334; 77336; 77387; 77412; 99024; 99215

== ENCOUNTER 2024-11-23 13:30 | Oncology outpatient (recurring) (ONCR) | payer MEDICARE, SELFPAY | END 2024-11-23 23:59 | disposition home or self-care (01) | PROVIDERS: PCP Nurse Practitioner Family; Visit Provider Radiology Radiation Oncology | DX: Z51.0 Encounter for antineoplastic radiation therapy (principal); C50.812 Malignant neoplasm of overlapping sites of left female breast; C77.3 Secondary and unspecified malignant neoplasm of axilla and upper limb lymph nodes | CPT/HCPCS: 77336; 77387; 77412 ==

== ENCOUNTER 2024-12-21 14:05 | Oncology outpatient (recurring) (ONCR) | payer MEDICARE, SELFPAY ==
--- NOTE | 2024-11-24 15:08 | ONCRAD TMN_ITS ---
Radiation Oncology Weekly Treatment Management Patient: Jude Sebastian MR#: [id number] : 1935> Attending Physician: Darrius Herrera Date of Service: 11/24/2024 Referring Physician(s) : Diagnosis: C50.912 - Malignant neoplasm of unspecified site of left female breast, Diagnosed 08/06/2024 (Active) C77.3 - Secondary and unspecified malignant neoplasm of axilla and upper limb lymph nodes, Diagnosed 08/06/2024 (Active) Radiotherapy to date: Course: L chest wall, Treatment Site: LSclav, Ref. ID: PTV_Axilla, Energy: 15X, Dose/Fx (cGy): 200, #Fx: 17 / 25, Dose Correction (cGy): 0, Total Dose Delivered (cGy): 3,400, Start Date: 11/02/2024, Elapsed Days: 22 Course: L chest wall, Treatment Site: Chestwall L ReCT, Ref. ID: PTV_Chestwal,l, Energy: 15X/6X, Dose/Fx (cGy): 200, #Fx: 25, Dose Correction (cGy): 0, Total Dose Delivered (cGy): 3,400, Start Date: 11/02/2024, Elapsed Days: 22 Reason for visit: The patient is being seen today as part of their regularly scheduled weekly on treatment visits to assess for acute toxicities from radiotherapy. Review of Systems: Patient has had 17 fractions out of 25. She has mild erythema in the supraclavicular area as well as darkened pigmentation in the axilla. No moist desquamation noted Vital Signs: Performed on 11/24/2024 1:41 PM BMI - 23.565 kg/m2 (high), Height - 66 in, Weight - 146 lbs, Temperature - 96.5 f, Pulse - 57 /min (low), Respiration - 18 /min, O2 Sat - 96 %, Pain - 0, Fatigue - 0 and BP - 124/ 74 mm(hg). Physical Exam: As aboveAAO x3. Skin is intact. Imaging: Radiation therapy imaging related to accurate target localization (i.e. KV, MV and CBCT) was reviewed. Appropriate changes, if any, were made to ensure treatment accuracy. Plan: Continue XRT. Signed by: Darrius Herrera 11/24/2024 3:06:26 PM
--- NOTE | 2024-12-01 14:59 | ONCRAD TMN_ITS ---
Radiation Oncology Weekly Treatment Management Patient: Lexus Roque MR#: [id number] : 1935 Attending Physician: Dr. Frederick Perez Date of Service: 12/01/2024 Referring Physician(s) : Diagnosis: C50.912 - Malignant neoplasm of unspecified site of left female breast, Diagnosed 08/06/2024 (Active) C77.3 - Secondary and unspecified malignant neoplasm of axilla and upper limb lymph nodes, Diagnosed 08/06/2024 (Active) Radiotherapy to date: Course: L chest wall, Treatment Site: LSclav, Ref. ID: PTV_Axilla, Energy: 15X, Dose/Fx (cGy): 200, #Fx: / 25, Dose Correction (cGy): 0, Total Dose Delivered (cGy): 4,200, Start Date: 11/02/2024, Elapsed Days: 29 Course: L chest wall, Treatment Site: Chestwall L ReCT, Ref. ID: [email or web address], Energy: 15X/6X, Dose/Fx (cGy): 200, #Fx: 25, Dose Correction (cGy): 0, Total Dose Delivered (cGy): 4,200, Start Date: 11/02/2024, Elapsed Days: 29 Reason for visit: The patient is being seen today as part of their regularly scheduled weekly on treatment visits to assess for acute toxicities from radiotherapy. Review of Systems: Chest wall feels irritated. Using Aquaphor and Aloe. Vital Signs: Performed on 12/01/2024 2:00 PM BMI - 24.082 kg/m2 (high), Height - 66 in, Weight - 149.2 lbs, Temperature - 96.5 f, Pulse - 54 /min (low), Respiration - 17 /min, O2 Sat - 97 %, Pain - 4, Fatigue - 0 and BP - 119/ 70 mm(hg). Physical Exam: Spotty follicular erythema over superior chest wall. Tanning and erythema in axilla Imaging: Radiation therapy imaging related to accurate target localization (i.e. KV, MV and CBCT) was reviewed. Appropriate changes, if any, were made to ensure treatment accuracy. Plan: Good tolerance of treatment. Add OTC cortisone and topical Benadryl. Signed by: Dr. Frederick Perez 12/01/2024 2:57:57 PM
--- NOTE | 2024-12-21 15:15 | ONCRAD EPV_ITS ---
Radiation Oncology Established Patient Visit Patient: Lexus Roque [id number] : 1935 Age: 89 Sex: Female Dictated by: Darrius Herrera Date of Service: 12/21/2024 Referring Physician(s) : Diagnosis: C50.912 - Malignant neoplasm of unspecified site of left female breast, Diagnosed 08/06/2024 (Active) C77.3 - Secondary and unspecified malignant neoplasm of axilla and upper limb lymph nodes, Diagnosed 08/06/2024 (Active) Radiotherapy to Date: Course: L chest wall, Treatment Site: LSclav, Ref. ID: PTV_Axilla, Energy: 15X, Dose/Fx (cGy): 200, #Fx: 25 / 25, Dose Correction (cGy): 0, Total Dose Delivered (cGy): 5,000, Start Date: 11/02/2024, End Date: 12/07/2024, Elapsed Days: 35 Course: L chest wall, Treatment Site: Chestwall L ReCT, Ref. ID: [email or web address], Energy: 15X/6X, Dose/Fx (cGy): 200, #Fx: 25 / 25, Dose Correction (cGy): 0, Total Dose Delivered (cGy): 5,000, Start Date: 11/02/2024, End Date: 12/07/2024, Elapsed Days: 35 Current History: This is an 89-year-old female who is now 2 weeks status post treatment to the low left chest wall. She is had good recovery treating her left chest wall and left axilla. She complains findings of some raised lesions in the left sacral area Left sacral area may be component of shingles. She has no pain and this is been going on for a week. She will see your PCP. It in her visit to her PCP she is going to get a bone density request. Current Medications: apixaban (Eliquis) TAKE ONE TABLET BY MOUTH TWICE DAILY camphor-menthol 0.2-3.5 % 1 applic topical DAILY PRN dimenhydrinate (Dramamine) 50 mg PO DAILY PRN docusate sodium (Stool Softener) 100 mg PO DAILY fluticasone propionate 50 mcg/actuation 2 sprays intranasal DAILY PRN levothyroxine TAKE ONE Allergies: adhesive. Current Complaints / Review of Systems: . Vital Signs: Performed on 12/21/2024 2:48 PM BMI - 23.856 kg/m2 (high), Height - 66 in, Weight - 147.8 lbs, Temperature - 96.8 f, Pulse - 55 /min (low), Respiration - 18 /min, O2 Sat - 98 %, Pain - 6, Fatigue - 0 and BP - 145/ 79 mm(hg)(high/). Physical Exam: General: Alert and oriented x 3. No acute distress. HEENT: Normocephalic, atraumatic. Extraocular Movements Intact: Pupils Equal, Round, Reactive to Light and Accommodation: Sclerae anicteric. Oral cavity is clear without lesions, masses or ulcers. NECK: Supple without supraclavicular or jugular lymphadenopathy. LUNGS: Clear to auscultation bilaterally without rales, rhonchi or wheeze. HEART: Regular rate and rhythm, normal S1 and S2 without murmur, gallop or rub. BREAST: Right breast pendulous no masses. Left chest wall he healing well from XRT. MUSCULOSKELETAL: No tenderness or percussion pain over the axial skeleton, scapulae or pelvis. ABDOMEN: Soft, nontender, nondistended without masses or organomegaly. Bowell sounds are present. EXTREMITIES: No peripheral edema is identified. Limited motor and sensory examination are grossly intact and symmetric bilaterally. Left sacral area shows a raised erythematous pustules suggestive of herpes zoster. NEUROLOGIC: Cranial nerves II ???XII are grossly intact. Normal sensation, strength 5/5 in all extremities, normal gait, no ataxia. Performance Status: KPS 80 Lab: None pending. Pathology: Primary, c50.912 - malignant neoplasm of unspecified site of left female breast, Diagnosed 08/06/2024 (active) and Primary, c77.3 - secondary and unspecified malignant neoplasm of axilla and upper limb lymph nodes, Diagnosed 08/06/2024 (active) . Imaging: See HPI Impression: ? Herpes zoster left sacral area Left-sided Breast cancer PLAN: See PCP for bone density testing and sacral wound dermatological issue See Dr. Reynoso for possible receptor therapy RTC in 3 months or sooner if need be. Signed by: 12/21/2024 3:13:57 PM <<Signature on File>> Time spent with patient/: 25 minutes-Global treatment period. CPT Code: CPT Code:
--- NOTE | 2024-12-28 11:29 | N.ONRD TS_ITS ---
Radiation Oncology Treatment Summary Patient: Lexus Roque MR#: [id number] : 1935 Age: 89 Sex: Female Dictated by: Dr. Frederick Perez Date of Service: 12/07/2024 Referring Physician(s) : Diagnosis: C50.912 - Malignant neoplasm of unspecified site of left female breast, Diagnosed 08/06/2024 (Active) C77.3 - Secondary and unspecified malignant neoplasm of axilla and upper limb lymph nodes, Diagnosed 08/06/2024 (Active) Radiotherapy to Date: Course: L chest wall, Treatment Site: LSclav, Ref. ID: PTV_Axilla, Energy: 15X, Dose/Fx (cGy): 200, #Fx: 25 / 25, Dose Correction (cGy): 0, Total Dose Delivered (cGy): 5,000, Start Date: 11/02/2024, End Date: 12/07/2024, Elapsed Days: 35 Course: L chest wall, Treatment Site: Chestwall L ReCT, Ref. ID: [email or web address]_Chestwall, Energy: 15X/6X, Dose/Fx (cGy): 200, #Fx: 25 / 25, Dose Correction (cGy): 0, Total Dose Delivered (cGy): 5,000, Start Date: 11/02/2024, End Date: 12/07/2024, Elapsed Days: 35 Clinical Summary: The patient tolerated RT well. Plan: End of treatment today. Continue on the above medication until the skin reaction resolves. Follow up in two weeks for skin check. Signed by: Dr. Frederick Perez>12/28/2024 11:28:57 AM <<Signature on File>>
== END 2024-12-24 23:59 | disposition home or self-care (01) ==
PROVIDERS: PCP Nurse Practitioner Family; Visit Provider Radiology Radiation Oncology
DX: C50.812 Malignant neoplasm of overlapping sites of left female breast (principal); C77.3 Secondary and unspecified malignant neoplasm of axilla and upper limb lymph nodes; Z92.3 Personal history of irradiation; L98.8 Other specified disorders of the skin and subcutaneous tissue
CPT/HCPCS: 77336; 77387; 77412; 99024

== ENCOUNTER 2025-01-04 13:37 | Outpatient (CLI) | payer MEDICARE, SELFPAY ==
--- NOTE | 2025-01-04 14:30 | XR_ITS ---
WS: [id number] DEXA (DUAL ENERGY X-RAY ABSORPTIOMETRY) Bone mineral density was performed using a [facility] machine. HISTORY: stress fracture of lumbar vertebra COMPARISON: None available. Lumbar spine BMD (L1-L4): 0.910 g/cm2 T score: -2.3 Z score: -0.4 Total hip BMD: Left: 0.642 g/cm2. T score: -2.9 Z score: -0.6 Right: 0.621 g/cm2. T score: -3.1 Z score: -0.8 10 year probability of a major osteoporotic fracture is 30.8%. XR/XR DEXA axial skeleton* 89053 IMPRESSION: OSTEOPOROSIS based upon the WHO classification for females.
== END 2025-01-04 13:38 | disposition home or self-care (01) ==
LOC: RAD 13:38
PROVIDERS: PCP Nurse Practitioner Family; Visit Provider Internal Medicine Medical Oncology
DX: M81.0 Age-related osteoporosis without current pathological fracture (principal); M48.46XA Fatigue fracture of vertebra, lumbar region, initial encounter for fracture; C50.012 Malignant neoplasm of nipple and areola, left female breast; Z17.0 Estrogen receptor positive status [ER+]
CPT/HCPCS: 77080

== ENCOUNTER 2025-01-11 11:45 | Outpatient (CLI) | payer MEDICARE, SELFPAY ==
--- NOTE | 2025-01-11 12:45 | MM_ITS ---
WS: [id number] RIGHT 3D TOMOSYNTHESIS DIGITAL MAMMOGRAPHY WITH CAD CLINICAL INFORMATION: breast ca HISTORY: LEFT mastectomy COMPARISON: 01/09/2024 TECHNIQUE: 3 views of the right breast were obtained. FINDINGS: Scattered fibroglandular densities of the right breast. No suspicious focal mass, asymmetry, calcifications, or architectural distortion. No evidence of malignancy. Vascular calcifications. MM/MM diag RT tomosynthesis 75095 IMPRESSION: DENSITY: There are scattered areas of fibroglandular density. BI-RADS: 2 - Benign. FOLLOW UP: 1 Year Follow-up Recommend return to annual diagnostic mammography.
== END 2025-01-11 11:46 | disposition home or self-care (01) ==
LOC: RAD 11:46
PROVIDERS: PCP Nurse Practitioner Family; Visit Provider Radiology Radiation Oncology
DX: Z85.3 Personal history of malignant neoplasm of breast (principal); R92.321 Mammographic fibroglandular density, right breast; R92.1 Mammographic calcification found on diagnostic imaging of breast; Z90.12 Acquired absence of left breast and nipple
CPT/HCPCS: 77061; G0279

== ENCOUNTER 2025-01-22 12:00 | Oncology outpatient (recurring) (ONCR) | payer MEDICARE, SELFPAY ==
[2024-12-28 09:05] LABS: Hematocrit 37.2 % (36-47); Hemoglobin 13.00 g/dL (11.27-16.99); Mean Corpuscular HGB Conc 34.9 g/dL (30-55); Mean Corpuscular Hemoglobin 32.5 pg (27-33); Mean Corpuscular Volume 93.0 fl (85-98); Nucleated Red Blood Cells % 0 %; Platelet Count 181 10^3/cmm (157-399); Red Blood Count 4.00 10^6/uL (3.85-5.65); White Blood Count 6.46 10^3/uL (3.29-11.43)
[2024-12-28 09:38] LABS: Alanine Aminotransferase 16 U/L (0-33); Albumin Level 4.2 g/dL (3.5-5.2); Alkaline Phosphatase 72 U/L (35-105); Anion Gap 14.5 (5-19); Aspartate Amino Transferase 17 U/L (0-32); Blood Urea Nitrogen 13 mg/dL (8-23); CA 15-3 30.3 U/mL (0-25); Calcium 9.1 mg/dL (8.5-10.5); Carbon Dioxide 25 mmol/L (22-29); Chloride 96 mmol/L (98-107); Creatinine Clr Calc Pharmacy 50.0509; Globulin 2.3 g/dL (1.3-4.6); Glucose 88 mg/dL (65-115); Osmolality Calculated 272 mOsm/kg (285-295); Potassium 4.5 mmol/L (3.5-5.1); Sodium 131 mmol/L (136-145); Total Protein 6.5 g/dL (6.6-8.7)
[2025-01-12 08:24] LABS: Hematocrit 37.8 % (36-47); Hemoglobin 12.90 g/dL (11.27-16.99); Mean Corpuscular HGB Conc 34.1 g/dL (30-55); Mean Corpuscular Hemoglobin 32.3 pg (27-33); Mean Corpuscular Volume 94.7 fl (85-98); Nucleated Red Blood Cells % 0 %; Platelet Count 204 10^3/cmm (157-399); Red Blood Count 3.99 10^6/uL (3.85-5.65); White Blood Count 5.85 10^3/uL (3.29-11.43)
[2025-01-12 08:42] LABS: Alanine Aminotransferase 16 U/L (0-33); Albumin Level 3.9 g/dL (3.5-5.2); Alkaline Phosphatase 71 U/L (35-105); Anion Gap 14.4 (5-19); Aspartate Amino Transferase 17 U/L (0-32); Blood Urea Nitrogen 17 mg/dL (8-23); Calcium 9.0 mg/dL (8.5-10.5); Carbon Dioxide 22 mmol/L (22-29); Chloride 99 mmol/L (98-107); Creatinine Clr Calc Pharmacy 50.0509; Globulin 2.4 g/dL (1.3-4.6); Glucose 96 mg/dL (65-115); Osmolality Calculated 273 mOsm/kg (285-295); Potassium 4.4 mmol/L (3.5-5.1); Sodium 131 mmol/L (136-145); Total Protein 6.3 g/dL (6.6-8.7)
--- NOTE | 2025-01-22 12:00 | USCV_ITS ---
Lexus Roque Age: 89 Gender: F : 1935 Exam Date: 01/22/2025 12:13 Ordering Phys: Lizett Montemayor MD Technologist: DIONE Exam Location: [facility] [place] Indication: High Risk Meds BP: 133 / 78 HR: 53 Rhythm: Sinus Technical Quality: Adequate MEASUREMENTS (Male / Female) Normal Values 2D ECHO LV Diastolic Diameter PLAX 5.1 cm 4.2 - 5.9 / 3.9 - 5.3 cm IVS Diastolic Thickness 0.9 cm 0.6 - 1.0 / 0.6 - 0.9 cm IVS Systolic Thickness 1.4 cm LVPW Systolic Thickness 1.7 cm LVOT Diameter 2.1 cm LV Ejection Fraction 2D Teich 55.1 % LV Ejection Fraction MOD 4C 51.9 % LV Ejection Fraction MOD 2C 60.2 % LV Ejection Fraction 2C AL 62.1 % LA Diameter 3.7 cm RA Systolic Volume 4C AL 60.7 ml RA Systolic Volume 4C MOD 57.9 ml LA Sys Volume AL 55.5 cm cubed LA Sys Volume Index AL 31.0 cm cubed/m squared Aorta at Sinotubular Diameter 3.0 cm IVC Diameter 1.6 cm M-MODE LA Ao Ratio MM 1.4 AV Cusp Separation MM 1.7 cm DOPPLER AV Peak Velocity 103.0 cm/s LVOT Peak Velocity 83.0 cm/s AV Area Cont Eq vti 3.1 cm squared AV Area Cont Eq pk 2.7 cm squared MV Peak Velocity 72.0 cm/s MV Area PHT 3.5 cm squared Mitral E to A Ratio 1.2 TV Peak Velocity 156.0 cm/s TR Peak Velocity 237.0 cm/s TR Peak Gradient 22.5 mmHg TV Peak E Velocity 63.0 cm/s PV Peak Velocity 75.0 cm/s FINDINGS Left Ventricle Normal left ventricular size, systolic function and wall thickness, with no regional wall motion abnormalities. Left ventricular ejection fraction is estimated at 60%. Normal diastolic function. Right Ventricle Normal right ventricular size and systolic function. Normal right ventricular systolic pressure. Right Atrium Normal right atrial size. Left Atrium Normal left atrial size. Mitral Valve Mild mitral valve regurgitation. Aortic Valve Mild aortic valve regurgitation. Tricuspid Valve Trace tricuspid valve regurgitation. Pulmonic Valve Trace pulmonary valve regurgitation. Pericardium No pericardial effusion. Aorta Normal size aortic root and proximal ascending aorta. IVC Normal inferior vena cava. CONCLUSIONS 1. Normal biventricular cavity size and systolic function. LV EF 60%. 2. No significant valvular dysfunction. Gurdeep Hummel MD, FACC (Electronically Signed) Final Date: 23 January 2025 21:54 S
== END 2025-01-25 08:18 | disposition home or self-care (01) ==
LOC: RAD 01-23 → ONCMED 01-26 07:46
PROVIDERS: Nurse Practitioner; PCP Nurse Practitioner Family; Visit Provider Internal Medicine Medical Oncology
DX: C50.012 Malignant neoplasm of nipple and areola, left female breast; Z17.0 Estrogen receptor positive status [ER+]; I34.0 Nonrheumatic mitral (valve) insufficiency; I35.1 Nonrheumatic aortic (valve) insufficiency; Z53.9 Procedure and treatment not carried out, unspecified reason
CPT/HCPCS: 36415; 80053; 85025; 86300; 93306; 99205; 99215

== ENCOUNTER 2025-02-09 10:30 | Oncology outpatient (recurring) (ONCR) | payer MEDICARE, SELFPAY ==
[2025-02-09] MEDS: denosumab 60 mg SDV (Infusion Clinic Only) SUBCUT (11:01)
== END 2025-02-23 23:59 | disposition home or self-care (01) ==
PROVIDERS: PCP Nurse Practitioner Family; Visit Provider Nurse Practitioner
DX: Z53.9 Procedure and treatment not carried out, unspecified reason; M81.0 Age-related osteoporosis without current pathological fracture; C50.919 Malignant neoplasm of unspecified site of unspecified female breast; Z17.0 Estrogen receptor positive status [ER+]; R03.0 Elevated blood-pressure reading, without diagnosis of hypertension; Z90.12 Acquired absence of left breast and nipple; Z92.3 Personal history of irradiation; Z87.891 Personal history of nicotine dependence; Z79.899 Other long term (current) drug therapy
CPT/HCPCS: 96372; 99215; J0897

== ENCOUNTER 2025-03-09 09:42 | Oncology outpatient (recurring) (ONCR) | payer MEDICARE, SELFPAY ==
[2025-03-09 10:37] LABS: Hematocrit 36.4 % (36-47); Hemoglobin 12.30 g/dL (11.27-16.99); Mean Corpuscular HGB Conc 33.8 g/dL (30-55); Mean Corpuscular Hemoglobin 31.7 pg (27-33); Mean Corpuscular Volume 93.8 fl (85-98); Nucleated Red Blood Cells % 0 %; Platelet Count 217 10^3/cmm (157-399); Red Blood Count 3.88 10^6/uL (3.85-5.65); White Blood Count 6.79 10^3/uL (3.29-11.43)
[2025-03-09 11:11] LABS: Alanine Aminotransferase 15 U/L (0-33); Albumin Level 4.1 g/dL (3.5-5.2); Alkaline Phosphatase 79 U/L (35-105); Anion Gap 14.9 (5-19); Aspartate Amino Transferase 19 U/L (0-32); Blood Urea Nitrogen 13 mg/dL (8-23); CA 15-3 36.3 U/mL (0-25); Calcium 9.2 mg/dL (8.5-10.5); Carbon Dioxide 25 mmol/L (22-29); Chloride 96 mmol/L (98-107); Creatinine Clr Calc Pharmacy 50.9024; Globulin 2.6 g/dL (1.3-4.6); Glucose 99 mg/dL (65-115); Osmolality Calculated 272 mOsm/kg (285-295); Potassium 4.9 mmol/L (3.5-5.1); Sodium 131 mmol/L (136-145); Total Protein 6.7 g/dL (6.6-8.7)
== END 2025-03-26 23:59 | disposition home or self-care (01) ==
PROVIDERS: PCP Nurse Practitioner Family; Visit Provider Nurse Practitioner
DX: C50.912 Malignant neoplasm of unspecified site of left female breast (principal); Z17.0 Estrogen receptor positive status [ER+]; R03.0 Elevated blood-pressure reading, without diagnosis of hypertension; Z87.891 Personal history of nicotine dependence; Z90.12 Acquired absence of left breast and nipple; Z92.3 Personal history of irradiation; M81.0 Age-related osteoporosis without current pathological fracture
CPT/HCPCS: 36415; 80053; 85025; 86300; 99215

== ENCOUNTER → 2025-03-22 10:06 | Outpatient (BNVA) | payer MEDICARE, SELFPAY | PROVIDERS: PCP Nurse Practitioner Family; Visit Provider Specialist | DX: M17.0 Bilateral primary osteoarthritis of knee (principal) | CPT/HCPCS: 20610; 73560; 73565; 99214; J1100; J2795; J3301; J9999 ==

== ENCOUNTER → 2025-03-29 13:26 | Outpatient (BNVA) | payer MEDICARE, SELFPAY | PROVIDERS: PCP Nurse Practitioner Family; Visit Provider Internal Medicine Cardiovascular Disease | DX: I48.91 Unspecified atrial fibrillation (principal); Z79.01 Long term (current) use of anticoagulants; E78.5 Hyperlipidemia, unspecified; I65.29 Occlusion and stenosis of unspecified carotid artery; N63.0 Unspecified lump in unspecified breast; Z87.74 Personal history of (corrected) congenital malformations of heart and circulatory system; Z87.891 Personal history of nicotine dependence | CPT/HCPCS: 99214 ==

== ENCOUNTER 2025-03-29 21:05 | Emergency (ER) | payer MEDICARE, SELFPAY ==
--- OUTSIDE RECORDS SUMMARY | 2025-03-29 21:12 | XMS_ITS | Encounter Summary ---
Author Organization [facility] Address [address] [place] [address] Care Team Providers Care Surgical Territory Manager Name Role Phone Non-Staff, Physician Primary Care Provider Unava ilable Encounter Details Date Type Department Care Team (Latest Contact Info) Description 10/16/2006 Outpatient Historical [facility] Medicine [place] [address] [facility] [address] [place] [address] Kim Penny MD NO ADDRESS ON FILE Unspecified Myalgia and Myositis (Primary Dx) Social History Tobacco Use Types Packs/Day Years Used Date Smoking Tobacco: Never Assessed Comments Unknown Sex and Gender Information Value Date Recorded Sex Assigned at Not on file 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
--- OUTSIDE RECORDS SUMMARY | 2025-03-29 21:12 | XMS_ITS | Encounter Summary ---
Author Organization [facility] Address [address] [place] [address] Care Team Providers Care Fireman Helper Name Role Phone Non-Staff, Physician Primary Care Provider Unava ilable Encounter Details Date Type Department Care Team (Latest Contact Info) Description 01/13/2003 Outpatient Historical [facility] Neftaly Monahan MD [address] [place] [address] SCREENING MAL NEOP-CERVIX (Primary Dx) Social History Tobacco Use Types Packs/Day Years Used Date Smoking Tobacco: Never Assessed Comments Unknown Sex and Gender Information Value Date Recorded Sex Assigned at Not on file Legal Sex Female 5:45 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
--- OUTSIDE RECORDS SUMMARY | 2025-03-29 21:12 | XMS_ITS ---
Author Organization [facility] Address [address] 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 024 Cancer Staging:Clinical stage from 02/12/2024:Stage IIIB(cT4b, cN0, cM0, G3, ER+, MI+, HER2-) - Signed by Makenzie Crystal MD on 02/20/2024 Pathologic stage from 07/06/2024: ypT4b(m), ypN2a, cM0, G2, ER+, MI+, HER2- - Signed by Nikos Dent MD on 07/06/2024 ASD (atrial septal defect) 12/26/2023 Monocular diplopia of left eye 09/02/2015 Hyperopia with astigmatism and presbyopia 2015 Cortical cataract of both eyes 09/02/2015 Metamorphopsia 09/02/2015 Dizzy 02/26/2014 Migraine 02/26/2014 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 Current Treatment and Therapy Plans OP ONC BREAST_TC_EVERY 21 DAYS* Plan Start Date:03/11/2024 Plan Provider:Makenzie Crystal MD Linked Problems Malignant neoplasm of left b reast in female, estrogen receptor positive, unspecified site of breast (CMS/HCC) Treatment Medications cycloPHOSphamide (200 mg/mL) IVPBcycloPHOSphamide (CYTOXAN)DOCEtaxel (TAXOTERE) IVPB OP ONC FILGRASTIM SUBCUT DAILY X 5 DAYS* Plan Start Date:05/22/2024 Plan Provider:Makenzie Crystal MD Linked Problems Malignant neoplasm of left b reast in female, estrogen receptor positive, unspecified site of breast (CMS/HCC) Treatment Medications No medications scheduled. Other Current Plans OP ONC DENOSUMAB (PROLIA) FOR OSTEOPENIA WITH ANTI-HORMONE THERAPY - EVERY 6 MONTHS* Plan Start Date:08/20/2024 Plan Provider:Makenzie Crystal MD Linked Problems Osteopenia of multiple sites Use of anastrozole (Arimidex) Treatment Medications No medications scheduled. Past Treatment and Therapy Plans No past plan information found. Lifetime Dose Tracking * Chemical Lifetime Dose Automatic Entry Manual Entr y Effective Dose 1.9 mSv 1.9 mSv 0 mSv Total DLP 908.7 DLP 908.7 DLP 0 DLP CTDIvol Max 51 mGy 51 mGy 0 mGy CTDIvol Min 51 mGy 51 mGy 0 mGy
--- OUTSIDE RECORDS SUMMARY | 2025-03-29 21:12 | XMS_ITS | Encounter Summary ---
Author Organization [facility] Address [address] [place] [address] Care Team Providers Care Director Social Name Role Phone Non-Staff, Physician Primary Care Provider Unava ilable Encounter Details Date Type Department Care Team (Latest Contact Info) Description 09/06/2003 Outpatient Historical [facility] Physical Therapy [address] [place] [address] Luis Mccrary MD [address] [place] [address] CERVICALGIA (Primary Dx) Social History Tobacco Use Types Packs/Day Years Used Date Smoking Tobacco: Never Assessed Comments Unknown Sex and Gender Information Value Date Recorded Sex Assigned at Not on file 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
--- OUTSIDE RECORDS SUMMARY | 2025-03-29 21:12 | XMS_ITS | Encounter Summary ---
Author Organization [facility] Address [address] [place] [address] Care Team Providers Care Hull Line Crew Member Name Role Phone Non-Staff, Physician Primary Care Provider Unava ilable Encounter Details Date Type Department Care Team (Latest Contact Info) Description 02/04/2003 Outpatient Historical [facility] Neftaly Monahan MD [address] [place] [address] LUMBAGO (Primary Dx); Other Counseling Social History Tobacco Use Types Packs/Day Years Used Date Smoking Tobacco: Never Assessed Comments Unknown Sex and Gender Information Value Date Recorded Sex Assigned at Not on file 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
--- OUTSIDE RECORDS SUMMARY | 2025-03-29 21:12 | XMS_ITS | Encounter Summary ---
Author Organization [facility] Address [address] [place] [address] Care Team Providers Care Billing Clinician Name Role Phone Non-Staff, Physician Primary Care Provider Unava ilable Encounter Details Date Type Department Care Team (Late st Contact Info) Description 10/04/2003 Outpatient Historical HIS [facility] Social History Tobacco Use Types Packs/Day Years Used Date Smoking Tobacco: Never Assessed Comments Unknown Sex and Gender Information Value Date Recorded Sex Assigned at Not on file Legal Sex Female 5:45 AM OSTEOLOGIST Gender Identity Not on file Sexual Orientation Not on file documented as of this encounter Plan of Treatment Not on file documented as of this encounter Visit Diagnoses Not on filedocumented in this encounter Care Teams Billing Clinician Relationship Specialty Start Date End Date Non-Staff, Physician NO ADDRESS ON FILE PCP - General 10/05/13 documented as of this encounter
--- OUTSIDE RECORDS SUMMARY | 2025-03-29 21:12 | XMS_ITS | Encounter Summary ---
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 Gender Identity Not on file Sexual Orientation Not on file documented as of this encounter Plan of Treatment Not on file documented as of this encounter Procedures Procedure Name Priority Date/Time Associated Diagnosis Comments MRI LUMBAR WO CONTRAST Routine 10/23/2006 4:05 AM CDT MRI CERVICAL WO CONTRAST Routine 10/23/2006 4:05 AM CDT documented in this encounter Results * MRI LUMBAR WO CONTRAST (10/23/2006 4:05 AM CDT) Anatomical Region Laterality Modality Spine Other 10/23/2006 4:05 AM CDT Narrative 10/23/2006 4:05 AM CDT MRI of the Lumbar Spine Without Contrast: Technique: Sagittal T1, sagittal T2, sagittal IR, axial T1, axial T2 images of the lumbar spine wereperformed. No contrast agent was utilized. Findings: The sagittal images show signal loss and volume loss with endplate change in virtually allof the lumbar interspaces. There is a central high signal intensity zone at L5-S1. Schmorl's nodesare present at multiple levels. The STIR sequence shows extensive reparative change in the superiorendplate of L4 and in the L3-L4 intervertebral disc space. High signal intensity zones are presentin the L2-L3 interspace. Conus and cauda equina show no abnormal signal. The transaxial images demonstrate extensive degenerative change in the thoracolumbar junctionintervertebral disc spaces. At L1-L2 there is facet hypertrophy. At L2- L3 there is discdesiccation. At L3-L4 circumferential bulge of the anulus with facet hypertrophy is present. AtL4-L5 some bulging disc and facet hypertrophy. L5-S1 shows a central high signal intensity zone inthe annulus. The conus is unremarkable. The cauda equina shows no AP diameter compression. Impression: Multilevel changes of aging especially in the intervertebral disc spaces. This iscoexisting with multiple levels of facet change. - Dictated By: Javed Mckeon M.D. Electronically Signed By: Javed Mckeon M.D. Date Signed: 10/24/06 JAW Procedure Note 04/16/2009 MRI of the Lumbar Spine Without Contrast: Technique: Sagittal T1, sagittal T2, sagittal IR, axial T1, axial T2 images of thelumbar spine wereperformed. No contrast agent was utilized. Findings: The sagittal images show signal loss and volume loss with endplate changein virtually allof the lumbar interspaces. There is a central high signal intensity zone at L5-S1.Schmorl's nodesare present at multiple levels. The STIR sequence shows extensive reparative change inthe superiorendplate of L4 and in the L3-L4 intervertebral disc space. High signal intensity zones arepresentin the L2-L3 interspace. Conus and cauda equina show no abnormal signal. The transaxial images demonstrate extensive degenerative change in thethoracolumbar junctionintervertebral disc spaces. At L1-L2 there is facet hypertrophy.At L2-L3 there is discdesiccation. At L3-L4 circumferential bulge of the anulus with facethypertrophy is present. AtL4-L5 some bulging disc and facet hypertrophy. L5-S1 shows a central high signalintensity zone inthe annulus. The conus is unremarkable. The cauda equina shows no AP diametercompression. Impression: Multilevel changes of aging especially in the intervertebral disc spaces.This iscoexisting with multiple levels of facet change. - Dictated By: Javed Mckeon M.D. Electronically Signed By: Javed Mckeon M.D. Date Signed: 10/24/06 JAW us Kim Penny MD MR ORDERABLES Final Resul t * MRI CERVICAL WO CONTRAST (10/23/2006 4:05 AM CDT) Anatomical Region Laterality Modality Spine Other 10/23/2006 4:05 AM CDT Narrative 10/23/2006 4:05 AM CDT MRI Cervical Spine Without Contrast: Technique: Sagittal T1, sagittal T2, sagittal IR, axial T2 * gradient echo, axial T2 FSE images of thecervical spine were performed. No contrast agent was utilized. Findings: Sagittal images show signal loss and volume loss in the intervertebral disc spaces at C5-C6and C6-C7. Central spurring is present. No subluxation of the vertebral bodies is noted. A smallamount of reparative change is present in the posterior elements at C4-C5. No abnormal signal fromwithin the cord is noted. Foramen magnum relationships are unremarkable. The transaxial images demonstrate a patent canal at the C2-C3 level. C3-C4 shows a subtle spondylyticbar. C4-C5 shows flattening of the cord with increased signal. C5-C6 shows a spondylytic barcompressing the cord. C6-C7 shows a spondylitic bar flattening the cord. C7-T1 shows a slightanterior subluxation. 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 - Dictated By: Javed Mckeon M.D. Electronically Signed By: Javed Mckeon M.D. Date Signed: 10/24/06 [facility] Procedure Note 04/16/2009 MRI Cervical Spine Without Contrast: Technique: Sagittal T1, sagittal T2, sagittal IR, axial T2 * gradient echo, axial T2FSE images of thecervical spine were performed. No contrast agent was utilized. Findings: Sagittal images show signal loss and volume loss in the intervertebraldisc spaces at C5-C6and C6-C7. Central spurring is present. No subluxation of the vertebral bodies isnoted. A smallamount of reparative change is present in the posterior elements at C4-C5. No abnormal signalfromwithin the cord is noted. Foramen magnum relationships are unremarkable. The transaxial images demonstrate a patent canal at the C2-C3 level. C3-W8yrhec a subtle spondylyticbar. C4-C5 shows flattening of the cord with increased signal. C5-C6 shows aspondylytic barcompressing the cord. C6-C7 shows a spondylitic bar flattening the cord. C7-T1 shows aslightanterior subluxation. 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 - Dictated By: Javed Mckeon M.D. Electronically Signed By: Javed Mckeon M.D. Date Signed: 10/24/06 JAW us Kim Penny MD MR ORDERABLES Final Resul t documented in this encounter Visit Diagnoses Not on filedocumented in this encounter Care Teams Research Geologist Relationship Specialty Start Date End Date Non-Staff, Physician NO ADDRESS ON FILE PCP - General 10/05/13 documented as of this encounter
--- OUTSIDE RECORDS SUMMARY | 2025-03-29 21:12 | XMS_ITS | Encounter Summary ---
Author Organization [facility] Address [address] [place] [address] Care Team Providers Care Field Technical Specialist Name Role Phone Non-Staff, Physician Primary Care Provider Unava ilable Encounter Details Date Type Department Care Team (Latest Contact Info) Description 11/18/2002 Outpatient Historical [facility] Neftaly Monahan MD [address] [place] [address] URIN TRACT INFECTION NOS (Primary Dx); LUMBAGO Social History Tobacco Use Types Packs/Day Years Used Date Smoking Tobacco: Never Assessed Comments Unknown Sex and Gender Information Value Date Recorded Sex Assigned at Not on file 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
--- OUTSIDE RECORDS SUMMARY | 2025-03-29 21:12 | XMS_ITS | Encounter Summary ---
Author Organization [facility] Address [address] [place] [address] Care Team Providers Care Assistant Reading Teacher Name Role Phone Non-Staff, Physician Primary Care Provider Unava ilable Encounter Details Date Type Department Care Team (Latest Contact Info) Description 10/04/2005 Outpatient Historical [facility] Medicine [place] [address] [facility] [address] [place] [address] Kim Penny MD NO ADDRESS ON FILE Other and Unspecified Hyperlipidemia (Primary Dx); Unspecified Hypothyroidism; Esophageal Reflux; Allergic Rhinitis, Cause Unspecified Social History Tobacco Use Types Packs/Day Years Used Date Smoking Tobacco: Never Assessed Comments Unknown Sex and Gender Information Value Date Recorded Sex Assigned at Not on file Legal Sex Female 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
--- OUTSIDE RECORDS SUMMARY | 2025-03-29 21:12 | XMS_ITS | Encounter Summary ---
Author Organization [facility] Address [address] [place] [address] Care Team Providers Care Hospice Case Manager Name Role Phone Non-Staff, Physician Primary Care Provider Unava ilable Encounter Details Date Type Department Care Team (Late st Contact Info) Description 06/23/2024 Telephone [facility] Gen Spec Surg [address] [facility] [address] [place] [address] Hay Woodall DO [address] [place] [address] Social History Tobacco Use Types Packs/Day Years Used Date Smoking Tobacco: Former Cigarettes Smokeless Tobacco: Never Alcohol Use Standard Drinks/Week Comments Not Currently 0 (1 standard drink = 0.6 oz pur e alcohol) Feeling Safe Answer Date Recorded Are you in a relationship wi th someone who hurts you emotionally and/or physically? 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
--- OUTSIDE RECORDS SUMMARY | 2025-03-29 21:12 | XMS_ITS | Clinical Summary ---
Author Organization [facility] Address [address] [place] [phone] Phone Care Team Providers Care Retail Department Reset Name Role Phone Non-Staff, Physician Primary Care Provider Unava ilable Allergies No known active allergies Medications zolpidem (AMBIEN) 10 mg tablet 02/19/2014 Active lovastatin (MEVACOR) 20 mg tablet 02/19/2014 Active LEVOTHYROXINE 50 mcg Oral tablet 02/18/2014 Act hugh alendronate (FOSAMAX) 70 mg tablet 02/11/2014 Active oxyCODONE (ROXICODONE) 5 mg tablet 02/03/2014 Active traMADol (ULTRAM) 50 mg tablet 12/11/2013 Active naproxen (NAPROSYN EC) 500 mg Tablet, Delayed Release (E.C.) 02/03/2014 Active sotalol (BETAPACE) 80 mg tablet 12/22/2013 Active warfarin (COUMADIN) 2.5 mg tablet 12/22/2013 Active PHENADOZ 25 mg Suppository 12/31/2013 Active ondansetron (ZOFRAN ODT) 8 mg Tablet, Rapid Dissolve 01/09/2014 Active topiramate (TOPAMAX) 50 mg tablet 02/02/2014 Active HYDROcodone-aceta minophen (NORCO) 5-325 mg tablet Take 1 Tab by mouth every 4 hours as needed. Active cyclobenzaprine (FLEXERIL) 10 mg tablet Take 10 mg by mouth 3 times daily as needed. 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 Dizzy 02/26/2014 Migraine 02/26/2014 Immunizations Immunization Administration Dates Next Due (PNEUMOVAX 23)(50 YRS UP) PN EUMOCOCCAL POLYSACCHARIDE (PPV23) 0.5 ML, IM 04/11/2005 Influenza Seasonal Unspecified Formulation IM Social History Tobacco Use Types Packs/Day Years Used Date Smoking Tobacco: Never Assessed Comments Unknown Sex and Gender Information Value Date Recorded Sex Assigned at Not on file Legal Sex Female 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 Gender Identity Not on file Sexual Orientation Not on file Last Filed Vital Signs Vital Sign Reading Time Taken Comments Blood Pressure 117/75 02/26/2014 9:17 AM CDT Pulse 68 02/26/2014 9:17 AM CDT Temperature - - Respiratory Rate - - Oxygen Saturation - - Inhaled Oxygen Concentration - - Weight 77.7 kg (171 lb 6.4 oz) 02/26/2014 9:17 A M CDT Height 170.2 cm (5' 7 ) 02/26/2014 9:17 AM CDT Body Mass Index 26.85 02/26/2014 9:17 AM CDT Plan of Treatment Health Maintenance Due Date Last Done Comments DTAP/TDAP/TD VACCINES (1 - Tdap) 1956 ZOSTER VACCINE (1 of 2) 11/02/1987 OSTEOPOROSIS SCREENING 2002 PNEUMOCOCCAL VACCINE 50+ YEARS (2 of 2 - PCV) 04/11/20 06 04/11/2005 RSV VACCINE (60+ or ) (1 - 1-dose 75+ series) 2012 INFLUENZA VACCINE (#1) 2024 03/12/2006 Insurance MEDICARE PART A AND B AARP SUPP Care Teams Retail Department Reset Relationship Specialty Start Date End Date Non-Staff, Physician NO ADDRESS ON FILE PCP - General 10/05/13
--- OUTSIDE RECORDS SUMMARY | 2025-03-29 21:12 | XMS_ITS | Encounter Summary ---
Author Organization [facility] Address [address] [place] [address] Care Team Providers Care Aquaculture Program Director Name Role Phone Non-Staff, Physician Primary Care Provider Unava ilable Encounter Details Date Type Department Care Team (Latest Contact Info) Description 12/14/2002 Outpatient Historical [facility] Neftaly Monahan MD [address] [place] [address] HYPERLIPIDEMIA NEC/NOS (Primary Dx); HYPOTHYROIDISM NOS; Other Counseling Social History Tobacco Use Types Packs/Day Years Used Date Smoking Tobacco: Never Assessed Comments Unknown Sex and Gender Information Value Date Recorded Sex Assigned at Not on file Legal Sex Female 5:45 AM STUNT PERFORMER Gender Identity Not on file Sexual Orientation Not on file documented as of this encounter Plan of Treatment Not on file documented as of this encounter Visit Diagnoses Diagnosis Other and unspecified hyperlipidemia- Primary Unspecified hypothyroidism Other Counseling Other specified counseling documented in this encounter Care Teams Aquaculture Program Director Relationship Specialty Start Date End Date Non-Staff, Physician NO ADDRESS ON FILE PCP - General 10/05/13 documented as of this encounter
--- OUTSIDE RECORDS SUMMARY | 2025-03-29 21:12 | XMS_ITS | Encounter Summary ---
Author Organization [facility] Address [address] [place] [address] Care Team Providers Care Used Building Materials Yard Worker Name Role Phone Non-Staff, Physician Primary Care Provider Unava ilable Encounter Details Date Type Department Care Team (Latest Contact Info) Description 09/06/2003 Outpatient Historical [facility] [address] [facility] [address] [place] [address] Luis Mccrary MD [address] [place] [address] CERVICAL DISC DEGEN (Primary Dx) Social History Tobacco Use Types Packs/Day Years Used Date Smoking Tobacco: Never Assessed Comments Unknown Sex and Gender Information Value Date Recorded Sex Assigned at Not on file Legal Sex Female 5:45 AM 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
--- OUTSIDE RECORDS SUMMARY | 2025-03-29 21:12 | XMS_ITS | Encounter Summary ---
Author Organization [facility] Address [address] [place] [address] Care Team Providers Care Bundler Name Role Phone Non-Staff, Physician Primary Care Provider Unava ilable Encounter Details Date Type Department Care Team (Late st Contact Info) Description 08/23/2004 Outpatient Historical [facility] Medicine [place] [address] [facility] [address] [place] [phone] Social History Tobacco Use Types Packs/Day Years Used Date Smoking Tobacco: Never Assessed Comments Unknown Sex and Gender Information Value Date Recorded Sex Assigned at Not on file Legal Sex Female 5:45 AM VEGETABLE LOADER MACHINE OPERATOR Gender Identity Not on file Sexual Orientation Not on file documented as of this encounter Plan of Treatment Not on file documented as of this encounter Visit Diagnoses Not on filedocumented in this encounter Care Teams Bundler Relationship Specialty Start Date End Date Non-Staff, Physician NO ADDRESS ON FILE PCP - General 10/05/13 documented as of this encounter
--- OUTSIDE RECORDS SUMMARY | 2025-03-29 21:12 | XMS_ITS | Clinical Summary ---
Author Organization [facility] Address [address] [place] [address] Dr. Sanchez: [place] [address] Care Team Providers Care Clerk Funeral Detail Name Role Phone Non-Staff, Physician Primary Care Provider Unava ilable Allergies Active Allergy Reactions Criticality Noted Date Comments Adhesive Rash Low 06/25/2023 Hydrocodone Nausea and Vomiting Low 05/22/2024 Latex Swelling Low 06/23/2024 redness Tramadol Nausea and Vomiting Low 06/23/2024 Medications apixaban (ELIQUIS) 5 mg tablet Take 2.5 mg by mouth 2 times daily. 06/25/19 24 Active Levothyroxine 13 mcg Capsule Take 75 mcg by mouth daily in the morning. 06/25/19 24 Active lovastatin (ALTOPREV) 20 mg Extended Release 24 hour tablet Take 20 mg by mouth daily. 06/25/19 24 Active sotaloL (BETAPACE) 120 mg Tablet Take 120 mg by mouth every 12 hours. 05/08/20 23 Active calcium citrate-vitamin d3 (CITRACAL D MAX) 315 mg-6.25 mcg (250 unit) Tablet Take by mouth daily. Active calcium citrate-vitamin d3 (CITRACAL D MAX) 315 mg-6.25 mcg (250 unit) Tablet Take by mouth daily. Active loratadine (CLARITIN) 10 mg tablet Take 10 mg by mouth daily. Active lysine 500 mg tablet Take 500 mg by mouth daily. Active acetaminophen (TYLENOL) 500 mg tablet Take 500 mg by mouth every 6 hours as needed. Active lidocaine (lidocaine viscous 2%) 2 % SolutionIndication s:Mouth sores To be taken in combination with viscous lidocaine, maalox, benadryl to make magic mouth wash 1:1:1 100 mL 1 03/18/20 24 Active diphenhydrAMINE (BENADRYL) 12.5 mg/5 mL solutionIndication s:Mouth sores Take 5 mL (12.5 mg) by mouth every 6 hours as needed for Other (See Comment) (for mucocitis). 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 30 Tablet 1 05/25/20 24 Active dimenhyDRINATE (DRAMAMINE) 50 mg Tablet Take 50 mg by mouth every 6 hours. Active famotidine (PEPCID) 20 mg tablet Take 20 mg by mouth 2 times daily. Active CHOLECALCIFEROL, VITAMIN D3, ORAL Take by mouth daily. Active THIAMINE HCL, VITAMIN B1, ORAL Take by mouth daily. Active anastrozole (Arimidex) 1 mg tablet Take 1 Tablet (1 mg) by mouth daily. 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 breast 024 Cancer Staging:Clinical stage from 02/12/2024:Stage IIIB(cT4b, cN0, cM0, G3, ER+, DE+, HER2-) - Signed by Makenzie Crystal MD on 02/20/2024 Pathologic stage from 07/06/2024: ypT4b(m), ypN2a, cM0, G2, ER+, DE+, HER2- - Signed by Nikos Dent MD on 07/06/2024 ASD (atrial septal defect) 12/26/2023 Monocular diplopia of left eye 09/02/2015 Hyperopia with astigmatism and presbyopia 2015 Cortical cataract of both eyes 09/02/2015 Metamorphopsia 09/02/2015 Dizzy 02/26/2014 Migraine 02/26/2014 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 Encounters Date Type Department Care Team Description 01/12/2025 External Device Data STL ABSTRACTION Provider, Abstract from Last 3 Months Immunizations Immunization Administration Dates Next Due (PNEUMOVAX 23)(50 YRS UP) PN EUMOCOCCAL POLYSACCHARIDE (PPV23) 0.5 ML, IM 04/11/2005 Influenza Seasonal Unspecified Formulation IM Family History Medical History Relation Name Comments No Known Problems Daughter 3 Cancer Father doesn't know wh at kind Stroke Mother Cancer - Other Sister 1 colon cancer, Cancer - Other Sister 2 lung cancer Cancer Son 1 pt cannot remem leyla, he at 39 Breast Cancer Neg Hx Melanoma Neg Hx Ovarian Cancer Neg Hx Pancreatic Cancer Neg Hx Uterine or Endometrial Cance r, Not Including Cervical Neg Hx Relation Name Status Comments Daughter 3 Alive Father Mother Sister 1 Sister 2 Alive Son 1 Alive Social History Tobacco Use Types Packs/Day Years Used Date Smoking Tobacco: Former Cigarettes Smokeless Tobacco: Never Tobacco Cessation:Counseling Given: Not Answered Alcohol Use Standard Drinks/Week Comments Not Currently 0 (1 standard drink = 0.6 oz pur e alcohol) Feeling Safe Answer Date Recorded Are you in a relationship wi th someone who hurts you emotionally and/or physically? No 07/02/2024 Food Insecurity Answer Date Recorded Patient needs follow up regardin 09/16/2024 Transportation Needs Answer Date Record ed Patient needs follow up regardin 09/16/2024 Housing Stability Answer Date Recorded Social/Environmental Concerns No concerns Utility Needs Answer Date Recorded Patient needs follow up regardin 09/16/2024 Comments No Sex and Gender Information Value Date Recorded Sex Assigned at Not on file Legal Sex Female 3:51 PM OUTLET MANAGER Gender Identity Not on file Sexual Orientation Not on file Last Filed Vital Signs Vital Sign [place] Time Taken Comments Blood Pressure 110/80 07/27/2024 1:10 PM OUTLET MANAGER Pulse 71 07/27/2024 1:10 PM OUTLET MANAGER Temperature 36.8 C (98.3 F) 07/27/2024 1:10 PM OUTLET MANAGER Respiratory Rate 18 07/22/2024 10:00 AM OUTLET MANAGER Oxygen Saturation 96% 07/27/2024 1:10 PM OUTLET MANAGER Inhaled Oxygen Concentration - - Weight 71.2 kg (157 lb) 07/23/2024 12:12 PM OUTLET MANAGER Height 170.2 cm (5' 7 ) 07/23/2024 12:12 PM OUTLET MANAGER Body Mass Index 24.59 07/23/2024 12:12 PM OUTLET MANAGER Plan of Treatment Health Maintenance Due Date Last Done Comments DTAP/TDAP/TD VACCINES (1 - Tdap) 1956 ZOSTER VACCINE (1 of 2) 1956 OSTEOPOROSIS SCREENING 2002 PNEUMOCOCCAL VACCINE 50+ YEARS (2 of 2 - PCV) 04/11/20 06 04/11/2005 RSV VACCINE (60+ or ) (1 - 1-dose 75+ series) 2012 INFLUENZA VACCINE (#1) 2024 03/12/2006 Medical Devices Implanted Type Area [employer] Advisor Device Identifier Shelf Expiration Date Model / Serial / Lot Clip Ligating [facility] Med [id number] - Csc - [id number] Implanted:Qty: 1 on 07/02/2024 by Hay Woodall DO at [facility] Clip Left: Breast TELEFLEX- WECK [employer]URE SYS [id number] 02/28/2029 [id number] / / [id number] Insurance MEDICARE PART A AND B [facility] [id number] RX [employer] RX Member Subscriber Plan / Payer (Ef fective 2024-Present) Name:Lexus Roque Relation to Subscriber:Self Name:Lexus Roque Payer ID:Not on file Group ID:[id number] Type:RX Medicare Part D [facility] Advance Directives For more information, please contact: [phone] * Full Code (Latest Code Status on File) Date Activated Date Inactivated Comments 07/02/2024 3:13 PM 07/02/2024 8:59 PM * Full Code Date Activated Date Inactivated Comments 07/02/2024 12:48 PM 07/02/2024 3:13 PM * Full Code Date Activated Date Inactivated Comments 07/02/2024 11:50 AM 07/02/2024 12:48 PM Care Teams Clerk Funeral Detail Relationship Specialty Start Date End Date Non-Staff, Physician NO ADDRESS ON FILE PCP - General 10/05/13
--- OUTSIDE RECORDS SUMMARY | 2025-03-29 21:12 | XMS_ITS | Encounter Summary ---
Author Organization [facility] Address [address] [place] [address] Care Team Providers Care Stud Beef Cattle Farmer Name Role Phone Non-Staff, Physician Primary Care Provider Unava ilable Encounter Details Date Type Department Care Team (Latest Contact Info) Description 09/04/2006 Outpatient Historical 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
--- OUTSIDE RECORDS SUMMARY | 2025-03-29 21:12 | XMS_ITS | Encounter Summary ---
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
--- OUTSIDE RECORDS SUMMARY | 2025-03-29 21:12 | XMS_ITS | Encounter Summary ---
Author Organization [facility] Address [address] [place] [address] Care Team Providers Care Survey Operations Director Name Role Phone Non-Staff, Physician Primary Care Provider Unava ilable Encounter Details Date Type Department Care Team (Latest Contact Info) Description 01/14/2004 Outpatient Historical [facility] Medicine [place] [address] [facility] [address] [place] [address] Kim Penny MD NO ADDRESS ON FILE PYELONEPHRITIS NOS (Primary Dx) Social History Tobacco Use Types Packs/Day Years Used Date Smoking Tobacco: Never Assessed Comments Unknown Sex and Gender Information Value Date Recorded Sex Assigned at Not on file Legal Sex Female 5:45 AM TRACK WELDER Gender Identity Not on file Sexual Orientation Not on file documented as of this encounter Plan of Treatment Not on file documented as of this encounter Visit Diagnoses Diagnosis Pyelonephritis, unspecified- Primary documented in this encounter Care Teams Survey Operations Director Relationship Specialty Start Date End Date Non-Staff, Physician NO ADDRESS ON FILE PCP - General 10/05/13 documented as of this encounter
--- OUTSIDE RECORDS SUMMARY | 2025-03-29 21:12 | XMS_ITS | Encounter Summary ---
Author Organization [facility] Address [address] [place] [address] Care Team Providers Care Phlebotomy Director Name Role Phone Non-Staff, Physician Primary Care Provider Unava ilable Encounter Details Date Type Department Care Team (Latest Contact Info) Description 11/13/2006 Outpatient [facility] [address] 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
--- OUTSIDE RECORDS SUMMARY | 2025-03-29 21:12 | XMS_ITS | Encounter Summary ---
Author Organization [facility] Address [address] [place] [address] Care Team Providers Care Live Hanger Name Role Phone Non-Staff, Physician Primary Care Provider Unava ilable Encounter Details Date Type Department Care Team (Latest Contact Info) Description 07/25/2006 Outpatient Historical [facility] Medicine [place] [address] [facility] [address] [place] [address] Quin Lopez, SUPPLIER QUALITY MANAGER [address] [place] [address] Acute Upper Respiratory Infections of Unspecified Site (Primary Dx); Other and Unspecified Hyperlipidemia; Unspecified Disorder of Skin and Subcutaneous Tissue; Exam Post High-Risk Rx Social History Tobacco Use Types Packs/Day Years Used Date Smoking Tobacco: Never Assessed Comments Unknown Sex and Gender Information Value Date Recorded Sex Assigned at Not on file Legal Sex Female 5:45 AM BAIL BONDING AGENT Gender Identity Not on file Sexual Orientation Not on file documented as of this encounter Plan of Treatment Not on file documented as of this encounter Visit Diagnoses Diagnosis Acute upper respiratory infections of unspecified site- Primary Other and unspecified hyperlipidemia Unspecified disorder of skin and subcutaneous tissue Follow-up examination following completed treatment with high-risk medications, not elsewhere classified documented in this encounter Care Teams Live Hanger Relationship Specialty Start Date End Date Non-Staff, Physician NO ADDRESS ON FILE PCP - General 10/05/13 documented as of this encounter
--- OUTSIDE RECORDS SUMMARY | 2025-03-29 21:12 | XMS_ITS | Encounter Summary ---
Author Organization [facility] Address [address] [place] [address] Care Team Providers Care Circular Knife Machine Cutter Name Role Phone Non-Staff, Physician Primary Care Provider Unava ilable Encounter Details Date Type Department Care Team (Late st Contact Info) Description 12/01/2002 Outpatient Historical [facility] Social History Tobacco Use Types Packs/Day Years Used Date Smoking Tobacco: Never Assessed Comments Unknown Sex and Gender Information Value Date Recorded Sex Assigned at Not on file Legal Sex Female 5:45 AM CONSERVATION SCIENCE TEACHER Gender Identity Not on file Sexual Orientation Not on file documented as of this encounter Plan of Treatment Not on file documented as of this encounter Visit Diagnoses Not on filedocumented in this encounter Care Teams Circular Knife Machine Cutter Relationship Specialty Start Date End Date Non-Staff, Physician NO ADDRESS ON FILE PCP - General 10/05/13 documented as of this encounter
--- OUTSIDE RECORDS SUMMARY | 2025-03-29 21:12 | XMS_ITS | Encounter Summary ---
Author Organization [facility] Address [address] [place] [address] Care Team Providers Care Legal Recovery Specialist Name Role Phone Non-Staff, Physician Primary Care Provider Unava ilable Encounter Details Date Type Department Care Team (Latest Contact Info) Description 11/07/2003 Outpatient Historical [facility] Physical Therapy [address] [place] [address] Luis Mccrary MD [address] [place] [address] CERVICALGIA (Primary Dx) Social History Tobacco Use Types Packs/Day Years Used Date Smoking Tobacco: Never Assessed Comments Unknown Sex and Gender Information Value Date Recorded Sex Assigned at Not on file Legal Sex Female 5:45 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
--- OUTSIDE RECORDS SUMMARY | 2025-03-29 21:12 | XMS_ITS | Encounter Summary ---
Author Organization [facility] Address [address] [place] [address] Care Team Providers Care Tank Wagon Operator Name Role Phone Non-Staff, Physician Primary Care Provider Unava ilable Encounter Details Date Type Department Care Team (Late st Contact Info) Description 08/14/2006 Outpatient Historical [facility] Dermatology- [address] [place] [phone] Arturo Sinclair MD [address] [place] [phone] Unspecified Hypertrophic and Atrophic Condition of Skin (Primary Dx); Inflamed Seborr Keratos Social History Tobacco Use Types Packs/Day Years Used Date Smoking Tobacco: Never Assessed Comments Unknown Sex and Gender Information Value Date Recorded Sex Assigned at Not on file Legal Sex Female 5:45 AM DISTRICT REPRESENTATIVE Gender Identity Not on file Sexual Orientation Not on file documented as of this encounter Plan of Treatment Not on file documented as of this encounter Visit Diagnoses Diagnosis Unspecified hypertrophic and atrophic condition of skin- Primary Inflamed seborr keratos Inflamed seborrheic keratosis documented in this encounter Care Teams Tank Wagon Operator Relationship Specialty Start Date End Date Non-Staff, Physician NO ADDRESS ON FILE PCP - General 10/05/13 documented as of this encounter
--- OUTSIDE RECORDS SUMMARY | 2025-03-29 21:12 | XMS_ITS | Encounter Summary ---
Author Organization [facility] Address [address] [place] [address] Care Team Providers Care Travel Rn Name Role Phone Non-Staff, Physician Primary Care Provider Unava ilable Encounter Details Date Type Department Care Team (Late st Contact Info) Description 08/06/2003 Outpatient Historical [facility] Social History Tobacco Use Types Packs/Day Years Used Date Smoking Tobacco: Never Assessed Comments Unknown Sex and Gender Information Value Date Recorded Sex Assigned at Not on file Legal Sex Female 5:45 AM SENIOR LOGISTICS MANAGER Gender Identity Not on file Sexual Orientation Not on file documented as of this encounter Plan of Treatment Not on file documented as of this encounter Visit Diagnoses Not on filedocumented in this encounter Care Teams Travel Rn Relationship Specialty Start Date End Date Non-Staff, Physician NO ADDRESS ON FILE PCP - General 10/05/13 documented as of this encounter
--- OUTSIDE RECORDS SUMMARY | 2025-03-29 21:12 | XMS_ITS | Encounter Summary ---
Author Organization [facility] Address [address] [place] [address] Care Team Providers Care Brake Operator Helper Name Role Phone Non-Staff, Physician Primary Care Provider Unava ilable Reason for Visit * Reason Onset Date Comments ARRIVAL TIME 06/30/2024 Encounter Details Date Type Department Care Team (Late st Contact Info) Description 06/30/2024 Telephone [facility] Gen Spec [place] [address] [place] [address] Hay Woodall DO [address] [place] [address] ARRIVAL TIME Social History Tobacco Use Types Packs/Day Years Used Date Smoking Tobacco: Former Cigarettes Smokeless Tobacco: Never Alcohol Use Standard Drinks/Week Comments Not Currently 0 (1 standard drink = 0.6 oz pur e alcohol) Feeling Safe Answer Date Recorded Are you in a relationship wi th someone who hurts you emotionally and/or physically? No 07/02/2024 Food Insecurity Answer Date Recorded Social/Environmental Concerns No concerns Transportation Needs Answer Date Record ed Social/Environmental Concerns No concerns Housing Stability Answer Date Recorded Social/Environmental Concerns No concerns Utility Needs Answer Date Recorded Social/Environmental Concerns No concerns Comments No Sex and Gender Information Value Date Recorded Sex Assigned at Not on file Legal Sex Female 3:51 PM ASSISTANT NEWS DIRECTOR Gender Identity Not on file Sexual Orientation Not on file documented as of this encounter Miscellaneous Notes * Telephone Encounter - Julita Suarez - 06/30/2024 3:04 PM ASSISTANT NEWS DIRECTOR SPOKE WITH REBECA THE AND GAVE HIM AN ARRIVAL TIME OF 11:30AM AT THE [facility]. STANT NEWS DIRECTOR documented in this encounter Plan of Treatment Not on file documented as of this encounter Visit Diagnoses Not on filedocumented in this encounter Care Teams Brake Operator Helper Relationship Specialty Start Date End Date Non-Staff, Physician NO ADDRESS ON FILE PCP - General 10/05/13 documented as of this encounter
--- OUTSIDE RECORDS SUMMARY | 2025-03-29 21:12 | XMS_ITS | Encounter Summary ---
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
--- OUTSIDE RECORDS SUMMARY | 2025-03-29 21:12 | XMS_ITS | Encounter Summary ---
Author Organization [facility] Address [address] [place] [address] Care Team Providers Care Contract Paralegal Name Role Phone Non-Staff, Physician Primary Care Provider Unava ilable Encounter Details Date Type Department Care Team (Late st Contact Info) Description 09/15/2003 Outpatient Historical 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
--- OUTSIDE RECORDS SUMMARY | 2025-03-29 21:12 | XMS_ITS | Encounter Summary ---
Author Organization [facility] Address [address] [place] [address] Care Team Providers Care Hospital Cleaner Name Role Phone Non-Staff, Physician Primary Care Provider Unava ilable Encounter Details Date Type Department Care Team (Latest Contact Info) Description 08/09/2003 Outpatient Historical [facility] Neftaly Monahan MD [address] [place] [address] CERVICALGIA (Primary Dx); Pure hypercholesterolem Social History Tobacco Use Types Packs/Day Years Used Date Smoking Tobacco: Never Assessed Comments Unknown Sex and Gender Information Value Date Recorded Sex Assigned at Not on file Legal Sex Female 5:45 AM SPEECH AND HEARING DIRECTOR Gender Identity Not on file Sexual Orientation Not on file documented as of this encounter Plan of Treatment Not on file documented as of this encounter Visit Diagnoses Diagnosis Cervicalgia- Primary Pure hypercholesterolem Pure hypercholesterolemia documented in this encounter Care Teams Hospital Cleaner Relationship Specialty Start Date End Date Non-Staff, Physician NO ADDRESS ON FILE PCP - General 10/05/13 documented as of this encounter
--- OUTSIDE RECORDS SUMMARY | 2025-03-29 21:12 | XMS_ITS | Encounter Summary ---
Author Organization [facility] Address [address] [place] [address] Care Team Providers Care Movable Bulkhead Installer Name Role Phone Non-Staff, Physician Primary Care Provider Unava ilable Encounter Details Date Type Department Care Team (Latest Contact Info) Description 01/13/2003 Outpatient Historical [facility] Neftaly Monahan MD [address] [place] [address] Gynecologic examination (Primary Dx); LUMBAGO; SCREENING MAL NEOP-CERVIX Social History Tobacco Use Types Packs/Day Years Used Date Smoking Tobacco: Never Assessed Comments Unknown Sex and Gender Information Value Date Recorded Sex Assigned at Not on file 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
--- OUTSIDE RECORDS SUMMARY | 2025-03-29 21:12 | XMS_ITS | Encounter Summary ---
Author Organization [facility] Address [address] [place] [address] Care Team Providers Care Sack Maker Name Role Phone Non-Staff, Physician Primary Care Provider Unava ilable Encounter Details Date Type Department Care Team (Latest Contact Info) Description 07/19/2005 Outpatient Historical [facility] Medicine [place] [address] [facility] [address] [place] [phone] Kim Penny MD NO ADDRESS ON FILE HYPOTHYROIDISM NOS (Primary Dx); HYPERLIPIDEMIA NEC/NOS; HEARING LOSS NOS; DEPRESSIVE DISORDER NEC Social History Tobacco Use Types Packs/Day Years Used Date Smoking Tobacco: Never Assessed Comments Unknown Sex and Gender Information Value Date Recorded Sex Assigned at Not on file Legal Sex Female 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
--- OUTSIDE RECORDS SUMMARY | 2025-03-29 21:12 | XMS_ITS | Encounter Summary ---
Author Organization [facility] Address [address] [place] [address] Care Team Providers Care Fork Truck Operator Name Role Phone Non-Staff, Physician Primary Care Provider Unava ilable Encounter Details Date Type Department Care Team (Latest Contact Info) Description 02/26/[address] 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
--- OUTSIDE RECORDS SUMMARY | 2025-03-29 21:12 | XMS_ITS | Encounter Summary ---
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
--- OUTSIDE RECORDS SUMMARY | 2025-03-29 21:12 | XMS_ITS | Encounter Summary ---
Author Organization [facility] Address [address] [place] [address] Care Team Providers Care Inspector Eyeglass Name Role Phone Non-Staff, Physician Primary Care Provider Unava ilable Encounter Details Date Type Department Care Team (Latest Contact Info) Description 08/20/2003 Outpatient Historical [facility] Neftaly Monahan MD [address] [place] [address] CERVICALGIA (Primary Dx); Other Counseling Social History Tobacco Use Types Packs/Day Years Used Date Smoking Tobacco: Never Assessed Comments Unknown Sex and Gender Information Value Date Recorded Sex Assigned at Not on file 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
--- OUTSIDE RECORDS SUMMARY | 2025-03-29 21:12 | XMS_ITS | Encounter Summary ---
Author Organization [facility] Address [address] [place] [address] Care Team Providers Care Giver Name Role Phone Non-Staff, Physician Primary Care Provider Unava ilable Encounter Details Date Type Department Care Team (Latest Contact Info) Description 11/06/2006 Outpatient Historical [facility] [address] [place] [phone] Pedro Monson MD [address] [place] [address] Cervicalgia (Primary Dx); Degeneration of Cervical Intervertebral Disc Social History Tobacco Use Types Packs/Day Years Used Date Smoking Tobacco: Never Assessed Comments Unknown Sex and Gender Information Value Date Recorded Sex Assigned at Not on file Legal Sex Female 5:45 AM RN ACLS Gender Identity Not on file Sexual Orientation Not on file documented as of this encounter Plan of Treatment Not on file documented as of this encounter Visit Diagnoses Diagnosis Cervicalgia- Primary Degeneration of cervical intervertebral disc documented in this encounter Care Teams Giver Relationship Specialty Start Date End Date Non-Staff, Physician NO ADDRESS ON FILE PCP - General 10/05/13 documented as of this encounter
--- OUTSIDE RECORDS SUMMARY | 2025-03-29 21:12 | XMS_ITS | Encounter Summary ---
Author Organization [facility] Address [address] [place] [address] Care Team Providers Care Lead Process Engineer Name Role Phone Non-Staff, Physician Primary Care Provider Unava ilable Encounter Details Date Type Department Care Team (Latest Contact Info) Description 04/12/2003 Outpatient Historical [facility] Neurosurgery- [address] [place] [address] Luis Mccrary MD [address] [place] [address] OSTEOARTHROS NOS-OTHER SITE (Primary Dx); SPINAL STENOSIS-LUMBAR Social History Tobacco Use Types Packs/Day Years Used Date Smoking Tobacco: Never Assessed Comments Unknown Sex and Gender Information Value Date Recorded Sex Assigned at Not on file Legal Sex Female 5:45 AM SALES APPOINTMENT COORDINATOR Gender Identity Not on file Sexual Orientation Not on file documented as of this encounter Plan of Treatment Not on file documented as of this encounter Visit Diagnoses Diagnosis Osteoarthrosis, unspecified whether generalized or localized, other specified sites- Primary Spinal stenosis, lumbar region, without neurogenic claudication documented in this encounter Care Teams Lead Process Engineer Relationship Specialty Start Date End Date Non-Staff, Physician NO ADDRESS ON FILE PCP - General 10/05/13 documented as of this encounter
--- OUTSIDE RECORDS SUMMARY | 2025-03-29 21:12 | XMS_ITS | Encounter Summary ---
Author Organization [facility] Address [address] [place] [address] Care Team Providers Care Double End Chucking Machine Operator Name Role Phone Non-Staff, Physician Primary Care Provider Unava ilable Encounter Details Date Type Department Care Team (Latest Contact Info) Description 11/13/2006 Outpatient Historical [facility] Pain Management Procedures [address] 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
--- OUTSIDE RECORDS SUMMARY | 2025-03-29 21:12 | XMS_ITS | Encounter Summary ---
Author Organization [facility] Address [address] [place] [address] Care Team Providers Care Librarian Name Role Phone Non-Staff, Physician Primary Care Provider Unava ilable Encounter Details Date Type Department Care Team (Latest Contact Info) Description 02/10/2003 Outpatient Historical [facility] Neurosurgery[address] [place] [address] Luis Mccrary MD [address] [place] [address] LUMB DISC DIS W MYELOPAT (Primary Dx) Social History Tobacco Use Types Packs/Day Years Used Date Smoking Tobacco: Never Assessed Comments Unknown Sex and Gender Information Value Date Recorded Sex Assigned at Not on file 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
--- OUTSIDE RECORDS SUMMARY | 2025-03-29 21:12 | XMS_ITS | Encounter Summary ---
Author Organization [facility] Address [address] [place] [address] Care Team Providers Care Central Sterilization Technician Name Role Phone Non-Staff, Physician Primary Care Provider Unava ilable Encounter Details Date Type Department Care Team (Latest Contact Info) Description 07/23/2003 Outpatient Historical [facility] Neftaly Monahan MD [address] [place] [address] ACUTE BRONCHITIS (Primary Dx) Social History Tobacco Use Types Packs/Day Years Used Date Smoking Tobacco: Never Assessed Comments Unknown Sex and Gender Information Value Date Recorded Sex Assigned at Not on file Legal Sex Female 5:45 AM CONSERVATOR ARTIFACTS Gender Identity Not on file Sexual Orientation Not on file documented as of this encounter Plan of Treatment Not on file documented as of this encounter Visit Diagnoses Diagnosis Acute bronchitis- Primary documented in this encounter Care Teams Central Sterilization Technician Relationship Specialty Start Date End Date Non-Staff, Physician NO ADDRESS ON FILE PCP - General 10/05/13 documented as of this encounter
--- OUTSIDE RECORDS SUMMARY | 2025-03-29 21:12 | XMS_ITS | Encounter Summary ---
Author Organization [facility] Address [address] [place] [address] Care Team Providers Care Machinist Helper Name Role Phone Non-Staff, Physician Primary Care Provider Unava ilable Encounter Details Date Type Department Care Team (Latest Contact Info) Description 08/06/2005 Outpatient Historical [facility] Ear, Nose and Throat 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
--- OUTSIDE RECORDS SUMMARY | 2025-03-29 21:12 | XMS_ITS | Encounter Summary ---
Author Organization [facility] Address [address] [place] [address] Care Team Providers Care Voice Network Administrator Name Role Phone Non-Staff, Physician Primary Care Provider Unava ilable Encounter Details Date Type Department Care Team (Latest Contact Info) Description 03/12/2006 Outpatient Historical [facility] Medicine [place] [address] [facility] [address] [place] [address] Bill Amanda DO NO ADDRESS ON FILE Vaccine for influenza (Primary Dx) Social History Tobacco Use Types Packs/Day Years Used Date Smoking Tobacco: Never Assessed Comments Unknown Sex and Gender Information Value Date Recorded Sex Assigned at Not on file 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
--- OUTSIDE RECORDS SUMMARY | 2025-03-29 21:12 | XMS_ITS | Encounter Summary ---
Author Organization [facility] Address [address] [place] [address] Care Team Providers Care Corporate Director Name Role Phone Non-Staff, Physician Primary Care Provider Unava ilable Encounter Details Date Type Department Care Team (Latest Contact Info) Description 11/06/2006 Outpatient Historical [facility] [address] [facility] [address] [place] [phone] Pedro Monson MD [address] [place] [address] Cervicalgia (Primary Dx) Social History Tobacco Use Types Packs/Day Years Used Date Smoking Tobacco: Never Assessed Comments Unknown Sex and Gender Information Value Date Recorded Sex Assigned at Not on file 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
--- OUTSIDE RECORDS SUMMARY | 2025-03-29 21:12 | XMS_ITS | Encounter Summary ---
Author Organization [facility] Address [address] [place] [address] Care Team Providers Care Film Technician Name Role Phone Non-Staff, Physician Primary Care Provider Unava ilable Encounter Details Date Type Department Care Team (Latest Contact Info) Description 01/26/2004 Outpatient Historical [facility] Medicine [place] [address] [facility] [address] [place] [id number] Kim Penny MD NO ADDRESS ON FILE URIN TRACT INFECTION NOS (Primary Dx) Social History Tobacco Use Types Packs/Day Years Used Date Smoking Tobacco: Never Assessed Comments Unknown Sex and Gender Information Value Date Recorded Sex Assigned at Not on file Legal Sex Female 5:45 AM BENCH LAY OUT TECHNICIAN Gender Identity Not on file Sexual Orientation Not on file documented as of this encounter Plan of Treatment Not on file documented as of this encounter Visit Diagnoses Diagnosis Urinary tract infection, site not specified- Primary documented in this encounter Care Teams Film Technician Relationship Specialty Start Date End Date Non-Staff, Physician NO ADDRESS ON FILE PCP - General 10/05/13 documented as of this encounter
--- OUTSIDE RECORDS SUMMARY | 2025-03-29 21:12 | XMS_ITS | Encounter Summary ---
Author Organization [facility] Address [address] [place] [address] Care Team Providers Care Serology Teacher Name Role Phone Non-Staff, Physician Primary Care Provider Unava ilable Encounter Details Date Type Department Care Team (Latest Contact Info) Description 09/06/2003 Outpatient Historical [facility] [address] [place] [phone] Luis Mccrary MD [address] [phone] CERVICALGIA (Primary Dx) Social History Tobacco Use Types Packs/Day Years Used Date Smoking Tobacco: Never Assessed Comments Unknown Sex and Gender Information Value Date Recorded Sex Assigned at Not on file Legal Sex Female 5:[address] Gender Identity Not on file Sexual Orientation Not on file documented as of this encounter Plan of Treatment Not on file documented as of this encounter Visit Diagnoses Diagnosis Cervicalgia- Primary documented in this encounter Care Teams Serology Teacher Relationship Specialty Start Date End Date Non-Staff, Physician NO ADDRESS ON FILE PCP - General 10/05/13 documented as of this encounter
--- OUTSIDE RECORDS SUMMARY | 2025-03-29 21:12 | XMS_ITS | Encounter Summary ---
Author Organization [facility] Address [address] [place] [address] Care Team Providers Care Bridal Sales Consultant Name Role Phone Non-Staff, Physician Primary Care Provider Unava ilable Encounter Details Date Type Department Care Team (Late st Contact Info) Description 09/13/2003 Outpatient Historical [facility] Social History Tobacco Use Types Packs/Day Years Used Date Smoking Tobacco: Never Assessed Comments Unknown Sex and Gender Information Value Date Recorded Sex Assigned at Not on file Legal Sex Female 5:45 AM DIGITAL SOLUTIONS ARCHITECT Gender Identity Not on file Sexual Orientation Not on file documented as of this encounter Plan of Treatment Not on file documented as of this encounter Visit Diagnoses Not on filedocumented in this encounter Care Teams Bridal Sales Consultant Relationship Specialty Start Date End Date Non-Staff, Physician NO ADDRESS ON FILE PCP - General 10/05/13 documented as of this encounter
--- OUTSIDE RECORDS SUMMARY | 2025-03-29 21:12 | XMS_ITS | Encounter Summary ---
Author Organization [facility] Address [address] [place] [address] Care Team Providers Care Welder Assembler Name Role Phone Non-Staff, Physician Primary Care Provider Unava ilable Encounter Details Date Type Department Care Team (Late st Contact Info) Description 08/06/[address] [facility] [address] [place] [phone] Social History Tobacco Use Types Packs/Day Years Used Date Smoking Tobacco: Never Assessed Comments Unknown Sex and Gender Information Value Date Recorded Sex Assigned at Not on file Legal Sex Female 5:45 AM REFRIGERATION INSULATOR Gender Identity Not on file Sexual Orientation Not on file documented as of this encounter Plan of Treatment Not on file documented as of this encounter Visit Diagnoses Not on filedocumented in this encounter Care Teams Welder Assembler Relationship Specialty Start Date End Date Non-Staff, Physician NO ADDRESS ON FILE PCP - General 10/05/13 documented as of this encounter
[2025-03-29 21:13] VITALS: BP 142/95; PULSE 69; RESP 15; TEMP 36.5; O2SAT 97; BMI 23.6
--- OUTSIDE RECORDS SUMMARY | 2025-03-29 21:13 | XMS_ITS | Encounter Summary ---
Author Organization [facility] Address [address] [place] [address] Care Team Providers Care Color Tester Name Role Phone Non-Staff, Physician Primary Care Provider Unava ilable Encounter Details Date Type Department Care Team (Latest Contact Info) Description 11/04/[address] 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
--- OUTSIDE RECORDS SUMMARY | 2025-03-29 21:13 | XMS_ITS | Encounter Summary ---
Author Organization [facility] Address [address] [place] [address] Care Team Providers Care Nutritionist Name Role Phone Non-Staff, Physician Primary Care Provider Unava ilable Encounter Details Date Type Department Care Team (Latest Contact Info) Description 12/03/2003 Outpatient Historical [facility] Medicine [place] [address] [facility] [address] [place] [address] Sarah Cassidy NP NO ADDRESS ON FILE ACUTE PHARYNGITIS (Primary Dx); ACUTE BRONCHITIS Social History Tobacco Use Types Packs/Day Years Used Date Smoking Tobacco: Never Assessed Comments Unknown Sex and Gender Information Value Date Recorded Sex Assigned at Not on file 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
--- OUTSIDE RECORDS SUMMARY | 2025-03-29 21:13 | XMS_ITS | Encounter Summary ---
Author Organization [facility] Address [address] [place] [address] Care Team Providers Care Sulfuric Acid Plant Operator Name Role Phone Non-Staff, Physician Primary Care Provider Unava ilable Encounter Details Date Type Department Care Team (Latest Contact Info) Description 04/11/2005 Outpatient Historical [facility] Medicine [place] [address] [facility] [address] [place] [phone] Kim Penny MD NO ADDRESS ON FILE HYPOTHYROIDISM NOS (Primary Dx); HYPERLIPIDEMIA NEC/NOS; BACKACHE NOS; VACCINE FOR STREP PNEUMONIAE Social History Tobacco Use Types Packs/Day Years Used Date Smoking Tobacco: Never Assessed Comments Unknown Sex and Gender Information Value Date Recorded Sex Assigned at Not on file 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 Gender Identity Not on file Sexual Orientation Not on file documented as of this encounter Plan of Treatment Not on file documented as of this encounter Visit Diagnoses Diagnosis Unspecified hypothyroidism- Primary Other and unspecified hyperlipidemia Backache, unspecified Need for prophylactic vaccination against Streptococcus pneumoniae (pneumococcus) Need for prophylactic vaccination against streptococcus pneumoniae (pneumococcus) documented in this encounter Care Teams Sulfuric Acid Plant Operator Relationship Specialty Start Date End Date Non-Staff, Physician NO ADDRESS ON FILE PCP - General 10/05/13 documented as of this encounter
--- OUTSIDE RECORDS SUMMARY | 2025-03-29 21:13 | XMS_ITS | Encounter Summary ---
Author Organization [facility] Address [address] [place] [address] Care Team Providers Care Water Purification Chemist Name Role Phone Non-Staff, Physician Primary Care Provider Unava ilable Encounter Details Date Type Department Care Team (Latest Contact Info) Description 09/06/2004 Outpatient Historical [facility] Medicine [place] [address] [facility] [address] [place] [address] Kim Penny MD NO ADDRESS ON FILE BACKACHE NOS (Primary Dx); CERVICALGIA; SPASM OF MUSCLE; HYPOTHYROIDISM NOS Social History Tobacco Use Types Packs/Day Years Used Date Smoking Tobacco: Never Assessed Comments Unknown Sex and Gender Information Value Date Recorded Sex Assigned at Not on file 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
--- OUTSIDE RECORDS SUMMARY | 2025-03-29 21:13 | XMS_ITS | Encounter Summary ---
Author Organization [facility] Address [address] [place] [address] Care Team Providers Care Shorthand Teacher Name Role Phone Non-Staff, Physician Primary Care Provider Unava ilable Encounter Details Date Type Department Care Team (Late st Contact Info) Description 11/05/2003 Outpatient Historical [facility] Medicine [place] [address] [facility] [address] [place] [phone] Social History Tobacco Use Types Packs/Day Years Used Date Smoking Tobacco: Never Assessed Comments Unknown Sex and Gender Information Value Date Recorded Sex Assigned at Not on file 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
--- OUTSIDE RECORDS SUMMARY | 2025-03-29 21:13 | XMS_ITS | Encounter Summary ---
Author Organization [facility] Address [address] [place] [address] Care Team Providers Care Certified Nursing Assistant Instructor Name Role Phone Non-Staff, Physician Primary Care Provider Unava ilable Encounter Details Date Type Department Care Team (Latest Contact Info) Description 10/07/2003 Outpatient Historical [facility] Physical Therapy [address] [place] [address] Luis Mccrary MD [address] [place] [address] CERVICALGIA (Primary Dx) Social History Tobacco Use Types Packs/Day Years Used Date Smoking Tobacco: Never Assessed Comments Unknown Sex and Gender Information Value Date Recorded Sex Assigned at Not on file 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
--- OUTSIDE RECORDS SUMMARY | 2025-03-29 21:13 | XMS_ITS | Encounter Summary ---
Author Organization [facility] Address [address] [place] [address] Care Team Providers Care Case Management Assistant Name Role Phone Non-Staff, Physician Primary Care Provider Unava ilable Encounter Details Date Type Department Care Team (Latest Contact Info) Description 10/19/2004 Outpatient Historical [facility] Medicine [place] [address] [facility] [address] [place] [address] Kim Penny MD NO ADDRESS ON FILE HYPOTHYROIDISM NOS (Primary Dx); HYPERLIPIDEMIA NEC/NOS; DEPRESSIVE DISORDER NEC Social History Tobacco Use Types Packs/Day Years Used Date Smoking Tobacco: Never Assessed Comments Unknown Sex and Gender Information Value Date Recorded Sex Assigned at Not on file 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
--- OUTSIDE RECORDS SUMMARY | 2025-03-29 21:13 | XMS_ITS | Encounter Summary ---
Author Organization [facility] Address [address] [place] [address] Care Team Providers Care Business Economist Name Role Phone Non-Staff, Physician Primary Care Provider Unava ilable Encounter Details Date Type Department Care Team (Latest Contact Info) Description 12/14/2004 Outpatient Historical [facility] Medicine [place] [address] [facility] [address] [place] [address] Kim Penny MD NO ADDRESS ON FILE HYPOTHYROIDISM NOS (Primary Dx); HYPERLIPIDEMIA NEC/NOS; DEPRESSIVE DISORDER NEC Social History Tobacco Use Types Packs/Day Years Used Date Smoking Tobacco: Never Assessed Comments Unknown Sex and Gender Information Value Date Recorded Sex Assigned at Not on file 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
[2025-03-30 00:11] VITALS: BP 159/64; PULSE 57; O2SAT 98
--- NOTE | 2025-03-30 00:16 | ED_ITS ---
HPI - Epistaxis General: Chief complaint: Epistaxis Stated complaint: Nose Bleed Time Seen by Provider: 03/30/25 00:01 Source: patient Mode of arrival: ambulatory Limitations: no limitations History of Present Illness: Patient is an 89-year-old female presenting to the emergency department for epistaxis beginning at 1700 this afternoon. She has an Eliquis states that she has nosebleeds frequently but today has not got to stop. States that has been bleeding since, had stopped while she was in the waiting room but began again during triage evaluation. Nasal clamp was applied at that time. She had been using [id number] equate nasal spray to help with bleeding but was unable to get it to stop. States that she has needed silver nitrate cauterization in the past for cessation of bleeding. During exam, there is minor trickling noted out of the left naris as well as posterior oropharynx, but she is noted to be frequently rubbing her nose aggressively which seems to exacerbate the bleeding. Intermittently will stop. Vital stable at this time, she is hemodynamically stable. MD complaint: epistaxis Location: left nostril Onset (ago): hour(s) Duration: intermittent Context: other anticoagulant use Associated symptoms: Deny fever(s), headache(s) or vomiting Treatment prior to arrival: nose pinching Related Data Home Medications ?Medication ?Instructions ?Recorded ?Confirmed dimenhydrinate 50 mg tablet 50 mg PO DAILY PRN dizzine ss or 10/10/22 03/29/25 (Dramamine) vertigo loratadine 10 mg tablet 10 mg PO DAILY PRN Allergy S ymptoms 10/10/22 03/29/25 camphor-menthol 0.2 %-3.5 % 1 applic topical DAILY PRN Pain 06/25/23 03/29/25 topical gel docusate sodium 100 mg capsule 100 mg PO DAILY 4 03/29/25 (Stool Softener) fluticasone propionate 50 2 spray intranasal DAILY PRN 06/25/23 03/29/25 mcg/actuation nasal Allergy Symptoms spray,suspension lysine 1,000 mg tablet 1,000 mg PO DAILY PRN mouth sores 06/25/23 03/29/25 riboflavin (vitamin B2) 100 mg 100 mg PO DAILY PRN carlos eduardo th sores 01/30/24 11/03/25 tablet (Vitamin B-2) ondansetron 8 mg disintegrating mg PO 03/17/24 5 tablet Previous Rx's ?Medication ?Instructions ?Recorded walker with wheels #1 ea 07/12/23 sotalol 120 mg tablet 120 mg PO BID #180 tabs 11/17 acyclovir 400 mg tablet 400 mg PO TID 7 days #21 tab s 12/24/24 abemaciclib 100 mg tablet 100 mg PO BID #60 tabs 12/28 (Verzenio) anastrozole 1 mg tablet (Arimidex) 1 mg PO DAILY #30 t abs 12/28/24 levothyroxine 75 mcg tablet See Rx Instructions .Route 01/01/25 .COMPLEX #90 tabs apixaban 5 mg tablet (Eliquis) See Rx Instructions .[place] 02/24/25 .COMPLEX #180 tabs lovastatin 20 mg tablet See Rx Instructions .Route 1 .COMPLEX #90 tabs amoxicillin 875 mg-potassium 1 tab PO BID 5 days #10 t abs 03/30/25 clavulanate 125 mg tablet hydrocodone 5 mg-acetaminophen 325 1 tab PO Q8H PRN pa in #15 tabs 03/30/25 mg tablet Allergies Allergy/AdvReac Type Severity Reaction Status Date / Time adhesive Allergy Mild rash Verified 03/29/25 21:19 Review of Systems General: Reports: 10 or more systems reviewed and unremarkable except in HPI and below Const: Denies: fever(s), chills or fatigue Eyes: Denies: change in vision ENMT: Reports: epistaxis; Denies: throat pain, ear or mastoid pain or nasal discharge Card: Denies: chest pain, palpitations, swelling of feet/ankles or lightheadedness Resp: Denies: dyspnea, productive cough or wheezing GI: Denies: abdominal pain, nausea, vomiting, diarrhea or constipation : Denies: flank pain, difficulty voiding, dysuria or urinary frequency Musc: Denies: neck pain, back pain or joint pain Skin/Breast: Denies: rash Neuro: Denies: headache(s), numbness in extremities or weakness in extremities PFSH ED PFSH: Medical History DDD (degenerative disc disease) Anticoagulation adequate with anticoagulant therapy Tobacco abuse COPD (chronic obstructive pulmonary disease) Hiatal hernia Small, seen on imaging Chronic back pain Dyslipidemia Atrial fibrillation Hypothyroidism Surgical History History of breast biopsy Left, benign History of bilateral cataract extraction History of left inguinal hernia repair History of atrial septal defect repair 1967 Family History Son Cancer Pseudomyxoma peritonei Social History Smoking and tobacco/nicotine status: former use of tobacco/nicotine Second hand smoke exposure: No Alcohol intake: never Substance/Drug Use: never Physical Exam Const: COMMON NORMALS: no acute distress, patient oriented x3 and no owusu itations GENERAL APPEARANCE: cooperative, comfortable and well developed ORIENTATION/CONSCIOUSNESS: Yes awake, Yes oriented to person, Yes oriented to place and Yes oriented to time HENMT: COMMON NORMALS: normocephalic, atraumatic and hearing grossly normal bilaterally HEAD & SCALP: normocephalic and atraumatic OTHER: Minor trickling of blood out of left nare. Posterior oropharyngeal exam does reveal trickling down the back of the throat. Eye: COMMON NORMALS: Equal, round and reactive pupils present, EOMs intact bilaterally and conjunctivae normal CONJUNCTIVA: Yes conjunctivae normal PUPIL: Yes Equal, round and reactive pupils present Neck/C-Spine: COMMON NORMALS: full ROM and supple Extremity: COMMON NORMALS: normal to inspection, full ROM and capillary refill normal Neuro: COMMON NORMALS: patient oriented x3, moves all extremities, no focal motor deficits and no sensory deficits noted SENSORIUM/ORIENTATION: Yes oriented to person, Yes oriented to place and Yes oriented to time Skin: COMMON NORMALS: no rashes or lesions noted GENERAL SKIN EXAM: no rashes or lesions noted Procedures Epistaxis Control Nostril: left Nose Prepped With: oxymetazoline Direct Inspection: unable to visualize Clots Removed by: blowing nose Cautery Used: none Device Inserted: nasal tampon Patient Tolerated Procedure: well Course Vital Signs: Vital signs: Vital Signs Temperature 97.7 F 03/29/25 21:13 Pulse Rate 57 L 03/30/25 00:11 Respiratory Rate 15 03/29/25 21:13 Blood Pressure 159/64 03/30/25 00:11 Pulse Oximetry 98 03/30/25 00:11 Oxygen Delivery Me thod Room Air 03/30/25 00:11 MDM - Epistaxis Medical Decision Making Patient presented with epistaxis, is on Eliquis. Intermittently has been bleeding in the emergency department, does appear to be bleeding both anterior and posterior though there is no visualized source at time of examination. Due to the persistent bleeding despite direct pressure and head tilting, Rhino Rocket is placed and patient started Augmentin. Referred to ENT. Pain meds sent to pharmacy, and given return precautions. She will hold Eliquis for couple of days. No radiology studies performed this visit Discharge Plan Discharge Patient Disposition: Home Clinical Impression: Posterior epistaxis Condition: Stable Prescriptions: New hydrocodone-acetaminophen 5-325 mg tablet 1 tab PO Q8H PRN (Reason: pain) Qty: 15 0RF amoxicillin-pot clavulanate 875-125 mg tablet 1 tab PO BID 5 Days Qty: 10 0RF No Action loratadine 10 mg tablet 10 mg PO DAILY PRN (Reason: Allergy Symptoms) dimenhydrinate [Dramamine] 50 mg tablet 50 mg PO DAILY PRN (Reason: dizziness or vertigo) (DME) walker with wheels See Rx Instructions .Route .MEDSUPPLY Qty: 1 0RF Rx Instructions: As directed ondansetron 8 mg tablet,disintegrating PO acyclovir 400 mg tablet 400 mg PO TID 7 Days Qty: 21 0RF anastrozole [Arimidex] 1 mg tablet 1 mg PO DAILY Qty: 30 5RF Verzenio 100 mg tablet 100 mg PO BID Qty: 60 5RF sotalol 120 mg tablet 120 mg PO BID Qty: 180 3RF levothyroxine 75 mcg tablet See Rx Instructions .ROUTE .COMPLEX Qty: 90 1RF Dose Instruction: TAKE ONE TABLET BY MOUTH EVERY DAY. Rx Instructions: TAKE ONE TABLET BY MOUTH EVERY DAY. lovastatin 20 mg tablet See Rx Instructions .ROUTE .COMPLEX Qty: 90 0RF Dose Instruction: TAKE 1 TABLET BY MOUTH EVERY DAY Rx Instructions: TAKE 1 TABLET BY MOUTH EVERY DAY Eliquis 5 mg tablet See Rx Instructions .ROUTE .COMPLEX Qty: 180 0RF Dose Instruction: TAKE ONE TABLET BY MOUTH TWICE DAILY Rx Instructions: TAKE ONE TABLET BY MOUTH TWICE DAILY Vitamin B-2 100 mg Tablet 100 mg PO DAILY PRN (Reason: mouth sores) L-Lysine 1,000 mg Tablet 1,000 mg PO DAILY PRN (Reason: mouth sores) Stool Softener 100 mg Capsule 100 mg PO DAILY Flonase 50 mcg/actuation [place],Suspension 2 spray INTRANASAL DAILY PRN (Reason: Allergy Symptoms) Biofreeze 0.2-3.5 % Gel 1 applic TOPICAL DAILY PRN (Reason: Pain) Rx Instructions: apply to back Discharge Orders: Discharge ED (Routine); Ordered 03/30/25 Ordered By: Denny Peter Referrals: Quin Lopez FNP [Primary Care Provider, Family Practice] Patient Instructions: Opioid Safety, Pain Management, Patient Portal & Derik Instructions Activity Restrictions/Additional Instructions: Epistaxis Discharge Instructions You have been treated for a nosebleed (epistaxis) with a nasal tampon (Rhino Rocket) placed in your nose. Please follow these instructions carefully to help your nose heal and prevent complications. Activity and Restrictions - Avoid straining, heavy lifting (over 10 pounds), bending over, and exercise until the packing is removed. Walking and other gentle activities are fine. - Sleep with your head slightly elevated to reduce the risk of further bleeding. - Do not blow your nose while the packing is in place. If you need to sneeze, do so with your mouth open. - Avoid picking your nose or putting anything in your nostrils. Nasal Care - Keep your nose and packing moist by using nasal saline (salt water) spray several times a day. This helps prevent crusting and makes removal easier. - A humidifier in your room may help keep your nose comfortable. Medications - Take amoxicillin-clavulanate (Augmentin) as prescribed to help prevent infection while the packing is in place. - Use hydrocodone-acetaminophen ([place]) 5?325 mg as prescribed for pain. - Do not take aspirin or ibuprofen unless directed by your doctor, as these can increase bleeding risk. Acetaminophen (Tylenol) is safe for pain. Follow-Up - Do not remove the nasal packing yourself. Follow up with your primary care provider for removal as scheduled, and attend your ENT (ear, nose, and throat) specialist appointment. - Packing is usually removed within 48?72 hours, or as directed by your provider. Warning Signs?Call Your Doctor or Seek Emergency Care If: - You have return of blood from your nose or mouth - Fever over 101?F - Increasing pain - Vision changes - Shortness of breath or trouble breathing - Loss of color or swelling around the nose or face - Diffuse skin rash If Bleeding Recurs: - Lean forward and pinch the soft part of your nose for 15?20 minutes. If bleeding does not stop, seek medical attention. Other Information - Packing may cause discomfort, pressure, or trouble sleeping. These are common and should improve after removal. - There is a small risk of infection or other complications, which is why antibiotics and close follow-up are important. If you have any questions or concerns, contact your healthcare provider. Print Language: Nepali Coding Level of Care Code ED [employer] Tube Molder for Kayli Scott
[2025-03-30 01:32] VITALS: BP 126/82; PULSE 61; O2SAT 96
[2025-03-30] MEDS: HYDROcodone-acetaminophen 5-325 mg Tablet 1 TAB PO (01:33)
== END 2025-03-30 01:58 | disposition home or self-care (01) ==
PROVIDERS: Emergency Provider Physician Assistant; PCP Nurse Practitioner Family
DX: R04.0 Epistaxis (principal); Z79.01 Long term (current) use of anticoagulants; Z87.891 Personal history of nicotine dependence; J44.9 Chronic obstructive pulmonary disease, unspecified; E78.5 Hyperlipidemia, unspecified
CPT/HCPCS: 99283; J9999

== ENCOUNTER 2025-04-13 10:00 | Oncology outpatient (recurring) (ONCR) | payer MEDICARE, SELFPAY ==
--- NOTE | 2025-04-09 09:30 | PETR_ITS ---
PROCEDURE INFORMATION: Exam: PET/CT Skull Base to Mid-thigh Exam date and time: 04/09/2025 10:16 AM Age: 89 years old Clinical indication: Condition or disease; Primary cancer: Metastatic breast cancer, prior surgery; Surgery date: 6+ months; Surgery type: Left inguinal hernia repair; Additional info: Restaging metastatic breast cancer, LABS AND CLINICAL REPORTS: Glucose: 99 mg/dl Treatment strategy for malignancy (PET staging): Restaging (PS) TECHNIQUE: Imaging protocol: Following at least four-hour fasting and following the injection of radiopharmaceutical, low dose CT images were obtained. Then, PET images were obtained. Attenuation corrected images were constructed using the CT scan. Fused images of PET and CT were reviewed. The standardized uptake values (SUV) reported below are maximum values within a region of interest, expressed in gm/ml. Exam includes orbital meatal line to mid-thigh. SUV normalization method: BodyWeight Radiopharmaceutical: 11 mCi F-18 FDG (Fluorodeoxyglucose), IV. Time of imaging post radiopharmaceutical administration: 49 minutes Injection site: right ac COMPARISON: CT PET Scan 02/25/2024 2:46 PM FINDINGS: Brain: Visualized brain has normal physiologic uptake. Pharynx: No abnormal uptake. Larynx: No abnormal uptake. Lungs, pleura and trachea: New areas of fibrosis, architectural distortion and bronchiectasis within the anterior lingula and left upper lobe. There is associated increased patchy areas of increased FDG uptake, maximum SUV 3.4. Otherwise scattered calcified granulomas and stable 2 mm right middle lobe triangular nodule, below PET resolution but statistically an intrapulmonary lymph node. Heart: Normal physiologic uptake. Mediastinal space: No abnormal uptake. Marked coronary artery calcifications. Liver: No abnormal uptake. Gallbladder and biliary ducts: No abnormal uptake. Pancreas: No abnormal uptake. Spleen: No abnormal uptake. Adrenal glands: No abnormal uptake. Kidneys and ureters: Normal physiologic uptake. Stomach and bowel: No abnormal uptake. Vasculature: No abnormal uptake. Lymph nodes: No abnormal uptake. No lymphadenopathy in the head, neck, chest, abdomen, pelvis, and extremities. Skeleton: No abnormal uptake in the visualized axial and appendicular skeleton. Status post sternotomy. Soft tissues: Status post left mastectomy, left axillary node dissection and left breast radiation. Associated post surgical and radiation changes along the left breast, axilla and chest wall. Previously noted FDG avid nodules within the left breast have been resected. There is no residual FDG uptake within the left breast and axilla. METRICS: Mediastinal blood pool: Mean SUV of 2.0 Liver uptake: Mean SUV of 2.5 PET/PET skull to thigh [id number] IMPRESSION: 1. Status post left mastectomy, axillary node dissection and radiation. No abnormal FDG uptake within the left breast, chest wall or axilla. 2. New areas of fibrosis and architectural distortion with increased FDG uptake within the left upper lobe. 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 Close attention on interval follow-up is recommended. 3. Otherwise no functional or anatomical evidence of metastatic disease within the head/neck, chest, abdomen or pelvis. 4. Stable subcentimeter right middle lobe nodule, likely an intrapulmonary lymph node.
[2025-04-13 09:35] LABS: Hematocrit 35.1 % (36-47); Hemoglobin 11.80 g/dL (11.27-16.99); Mean Corpuscular HGB Conc 33.6 g/dL (30-55); Mean Corpuscular Hemoglobin 31.6 pg (27-33); Mean Corpuscular Volume 93.9 fl (85-98); Nucleated Red Blood Cells % 0 %; Platelet Count 228 10^3/cmm (157-399); Red Blood Count 3.74 10^6/uL (3.85-5.65); White Blood Count 7.33 10^3/uL (3.29-11.43)
[2025-04-13 10:03] LABS: Alanine Aminotransferase 20 U/L (0-33); Albumin Level 4.0 g/dL (3.5-5.2); Alkaline Phosphatase 60 U/L (35-105); Anion Gap 9.5 (5-19); Aspartate Amino Transferase 15 U/L (0-32); Blood Urea Nitrogen 14 mg/dL (8-23); CA 15-3 34.5 U/mL (0-25); Calcium 8.9 mg/dL (8.5-10.5); Carbon Dioxide 27 mmol/L (22-29); Chloride 95 mmol/L (98-107); Globulin 2.5 g/dL (1.3-4.6); Glucose 115 mg/dL (65-115); Osmolality Calculated 265 mOsm/kg (285-295); Potassium 4.5 mmol/L (3.5-5.1); Sodium 127 mmol/L (136-145); Total Protein 6.5 g/dL (6.6-8.7)
--- NOTE | 2025-04-13 11:30 | ONCRAD EPV_ITS ---
Radiation Oncology Established Patient Visit Patient: Lexus Roque [id number] : 1935 Age: 89 Sex: Female Dictated by: Darrius Herrera Date of Service: 04/13/2025 Referring Physician(s) : Dr. Montemayor Diagnosis: C50.912 - Malignant neoplasm of unspecified site of left female breast, Diagnosed 08/06/2024 (Active) C77.3 - Secondary and unspecified malignant neoplasm of axilla and upper limb lymph nodes, Diagnosed 08/06/2024 (Active) Radiotherapy to Date: Course: L chest wall, Treatment Site: LSclav, Ref. ID: [id number], Energy: 15X, Dose/Fx (cGy): 200, #Fx: 25 / 25, Dose Correction (cGy): 0, Total Dose Delivered (cGy): 5,000, Start Date: 11/02/2024, End Date: 12/07/2024, Elapsed Days: 35 Course: L chest wall, Treatment Site: Chestwall L ReCT, Ref. ID: [email or web address], Energy: 15X/6X, Dose/Fx (cGy): 200, #Fx: 25 / 25, Dose Correction (cGy): 0, Total Dose Delivered (cGy): 5,000, Start Date: 11/02/2024, End Date: 12/07/2024, Elapsed Days: 35 Current History: This is a pleasant 89-year-old female who is 3 months status post treatment to the left chest wall and supra clavicle area. She is on anastrozole with no problems. PET scan on 04/09/2025 noted no functional abnormalities and no abnormal uptake in the left breast chest wall or axilla. There are new areas of fibrosis and architectural distortion in the left upper lobe suggestive of treatment changes. Current Medications: abemaciclib (Verzenio) 100 mg PO BID acyclovir 400 mg PO TID 7 days anastrozole (Arimidex) 1 mg PO DAILY apixaban (Eliquis) TAKE ONE TABLET BY MOUTH TWICE DAILY camphor-menthol 0.2-3.5 % 1 applic topical DAILY PRN dimenhydrinate (Dramamine) 50 mg PO DAILY PRN docusate sodium (Stool Softener) 100 mg PO DAILY fluticasone propionate 50 mcg/actuation 2 sprays intranasal DAILY PRN hydrocodone-acetaminophen 5-325 mg 1 tab PO Q8H PRN levothyroxine TAKE ONE TABLET BY MOUTH EVERY DAY. loratadine 10 mg PO DAILY PRN lovastatin TAKE 1 TABLET BY MOUTH EVERY DAY lysine 1,000 mg PO DAILY PRN ondansetron mg PO riboflavin (vitamin B2) (Vitamin B-2) 100 mg PO DAILY PRN sotalol 120 mg PO BID [walker with wheels As directed] Allergies: adhesive Allergy (Mild, Verified 03/29/25 21:19) rash Current Complaints / Review of Systems: As above Vital Signs: Performed on 04/13/2025 11:00 AM BMI - 23.888 kg/m2 (high), Height - 66 in, Weight - 148 lbs, Temperature - 97.5 f, Pulse - 57 /min (low), Respiration - 17 /min, O2 Sat - 95 % (low), Pain - 0, Fatigue - 0 and BP - 117/ 78 mm(hg). Physical Exam: General: Alert and oriented x 3. No acute distress. HEENT: Normocephalic, atraumatic. Extraocular Movements Intact: Pupils Equal, Round, Reactive to Light and Accommodation: Sclerae anicteric. Oral cavity is clear without lesions, masses or ulcers. NECK: Supple without supraclavicular or jugular lymphadenopathy. LUNGS: Clear to auscultation bilaterally without rales, rhonchi or wheeze. HEART: Regular rate and rhythm, normal S1 and S2 without murmur, gallop or rub. Left chest wall without nodularity. Axilla without nodularity also. MUSCULOSKELETAL: No tenderness or percussion pain over the axial skeleton, scapulae or pelvis. ABDOMEN: Soft, nontender, nondistended without masses or organomegaly. Bowell sounds are present. EXTREMITIES: No peripheral edema is identified. Limited motor and sensory examination are grossly intact and symmetric bilaterally. NEUROLOGIC: Cranial nerves II ???XII are grossly intact. Normal sensation, strength 5/5 in all extremities, normal gait, no ataxia. Performance Status: KPS 80 Lab: None pending. Pathology: Primary, c50.912 - malignant neoplasm of unspecified site of left female breast, Diagnosed 08/06/2024 (active) and Primary, c77.3 - secondary and unspecified malignant neoplasm of axilla and upper limb lymph nodes, Diagnosed 08/06/2024 (active) . Imaging: See HPI Impression: Left Breast Cancer Plan: Continue Arimidex RTC in 3 months or sooner if need be Signed by: 04/13/2025 11:29:18 AM <<Signature on File>> Time spent with patient//review of records/preparation of document: 30 minutes CPT Code: CPT Code:
== END 2025-04-25 23:59 | disposition home or self-care (01) ==
PROVIDERS: Internal Medicine Medical Oncology; PCP Nurse Practitioner Family; Visit Provider Nurse Practitioner
DX: C50.012 Malignant neoplasm of nipple and areola, left female breast; Z17.0 Estrogen receptor positive status [ER+]; M81.0 Age-related osteoporosis without current pathological fracture; R03.0 Elevated blood-pressure reading, without diagnosis of hypertension; I51.9 Heart disease, unspecified; Z90.12 Acquired absence of left breast and nipple; Z92.3 Personal history of irradiation; Z87.891 Personal history of nicotine dependence; Z92.21 Personal history of antineoplastic chemotherapy; Z79.899 Other long term (current) drug therapy; Z79.811 Long term (current) use of aromatase inhibitors; C77.3 Secondary and unspecified malignant neoplasm of axilla and upper limb lymph nodes; Z53.9 Procedure and treatment not carried out, unspecified reason
CPT/HCPCS: 36415; 78815; 80053; 85025; 86300; 99214; A9552